=== PATIENT | male | born 1940 | race Caucasian/White ===

== ENCOUNTER 2016-09-21 02:53 | Inpatient (IN) ==
--- NOTE | 2016-09-21 03:11 | Emergency Department Note ---
Disposition Clinical Impression: Acute blood loss as cause of postoperative anemia, Post-tonsillectomy hemorrhage Disposition: Admitted As Inpatient Condition: Fair [facility] Care [facility] - Forms: Work/School Release, ED Satisfaction Letter General Adult HPI - General Chief complaint: ED General Medical Stated complaint: Bleeding S/P Tonsilectomy Time Seen by Provider: 09/21/16 02:57 Source: patient, EMS Mode of arrival: EMS Limitations: no limitations Nursing Notes Reviewed: Yes Vital Signs Reviewed: Yes - History of Present Illness HPI Narrative: 76-year-old male who presents from home by EMS. On August 29 he had a right- sided tonsillectomy and right-sided neck mass biopsy. He said since that time he has had some intermittent bleeding but since last night he has had continuous bleeding that has not stopped. According to EMS there were also supposed THAT were full of blood in the house. He has a past medical history of diabetes, coronary arterial disease, hypertension, hyperlipidemia, COPD. He is taking aspirin, Plavix, statin, metoprolol, metformin, glipizide. He denies any shortness of breath. Denies any chest pain. Radiation: non-radiation Pain Severity: moderate Pain Scale: 4 Improves with: nothing Worsens with: nothing Associated symptoms: Reports: denies other symptoms Treatments Prior to Arrival: none - Related Data Home Medications Medication Instructions Recorded Confirmed Metformin [Glucophage] 850 mg PO BID 06/05/15 09/17/16 Albuterol Sulfate [Proair 90 mcg IH Q4H PRN 06/06/15 09/17/16 Respiclick] Aspirin 81 mg PO DAILY 06/06/15 09/17/16 Finasteride [Proscar] 5 mg PO DAILY 06/06/15 09/17/16 Lisinopril [Zestril] 40 mg PO DAILY 06/06/15 09/17/16 Terazosin [Hytrin] 5 mg PO HS 06/06/15 09/17/16 Acetaminophen [Tylenol] 650 mg PO Q6HR PRN 02/21/16 09/17/16 Atorvastatin Calcium [Lipitor] 20 mg PO HS 02/21/16 09/17/16 Clopidogrel Bisulfate [Plavix] 75 mg PO DAILY 02/21/16 09/17/16 Pantoprazole Sodium [Protonix] 40 mg PO DAILY 02/21/16 09/17/16 Cholecalciferol (D-3) [Vitamin D] 1,000 unit PO DAILY 05/30/16 09/17/16 Docusate [Colace] 100 mg PO BID PRN 05/30/16 09/17/16 Fluticasone Propionate Nasal 2 spr NS DAILY PRN 05/30/16 09/17/16 [Flonase] Latanoprost [Xalatan] 1 drop RIGHT EYE HS 05/30/16 09/17/16 Metoprolol [Lopressor] 25 mg PO BID 08/29/16 09/17/16 Previous Rx's Medication Instructions Recorded Hydrocodone/Acetaminophen [[place] 1 each PO Q4-6H PRN #40 tablet 08/29/16 7.5-325 Tablet] Dexamethasone [Decadron] 4 mg PO BID #36 tab 09/12/16 Magic Mouthwash [Magic Mouthwash 10 ml PO QID PRN #240 ml 09/12/16 BLM] Ondansetron [Zofran] 4 mg PO Q8HR PRN #90 tablet 09/12/16 Prochlorperazine Maleate 10 mg PO Q8HR PRN #90 tablet 09/12/16 [Compazine] HYDROcodone/Acet 10/325 mg [[place] 1 - 2 tab PO Q4HR PRN #120 tab 09/14/16 10-325 mg] Polyethylene Glycol 3350 [MiraLAX] 17 gm PO DAILY #30 powd.pack 09/14/16 Allergies Allergy/AdvReac Type Severity Reaction Status Date / Time No Known Allergies Allergy Verified 09/21/16 03:01 All systems ED: reviewed and negative except as stated. Constitutional: Denies: fever Eyes: Denies: vision change ENT ED: Reports: throat pain (Mild) Cardiovascular: Denies: chest pain Respiratory: Denies: cough, dyspnea Gastrointestinal: Reports: nausea. Denies: abdominal pain, vomiting Genitourinary: Denies: dysuria Musculoskeletal: Denies: back pain Integumentary: Denies: rash Neurological: Denies: headache Past Medical History - Past Medical History Medical history: Reports: arthritis, asthma, COPD, diabetes, hyperlipidemia, hypertension, myocardial infarction, valvular heart disease Surgical history: Reports: angioplasty/stent, cataract, other Psychiatric history: Reports: no psych history - Social History Smoking Status: Former smoker Smokeless Tobacco Status: No Alcohol use: Reports: none Drug use: Reports: none Physical Exam - General Limitations: no limitations General appearance: alert - Head Head exam: atraumatic - Eye Eye exam: Present: normal appearance, PERRL, EOMI - ENT ENT exam: other (Right tonsil is surgically missing. Between the tonsillar pillars or does not appear to be a source of bleeding. Bleeding does appear behind the posterior pillar but is unclear whether this is coming from the mass that is superior to this or from behind the pillar itself.) - Chest Chest inspection: Present: normal inspection - Respiratory Respiratory exam: Present: normal lung sounds bilaterally. Absent: respiratory distress - Cardiovascular Cardiovascular exam: Present: regular rate, normal rhythm - Abdominal Exam Abdominal exam: Present: soft, Non-Tender - Extremities Exam Extremities exam: Present: normal inspection - Back Exam Back exam: Present: normal inspection - Neurological Exam Neurological exam: Present: alert, oriented X3 - Psychiatric Psychiatric exam: Present: normal affect, normal mood - Skin Skin exam: Present: warm, dry Course Course Narrative: It does not appear to the bleeding is coming from the actual tonsillectomy site and the source cannot be directly visualized. We will do a type and screen and check his hemoglobin level. He is currently gargling ice water. We will check his coags and consult ear nose and throat. - Reevaluation(s) Reevaluation #1: HGB is 7, he is feeling generally weak and is continuing to bleed. Will transfuse. ENT is paged. Reevaluation #2: Spoke with Dr Cheatham from ENT, who agrees with transfusion. He will come evaluate the patient with likely OR trip. Will transfuse 4 pack of platelets as he is on aspirin and plavix and has a life threatening bleed. Blood pressure improved after saline bolus and beginning blood product. Vital Signs Temperature 97.8 F 09/21/16 02:55 Pulse Rate 80 09/21/16 02:55 Respiratory Rate 18 09/21/16 02:55 Blood Pressure 114/79 09/21/16 02:55 O2 Sat by Pulse Oximetry 92 L 09/21/16 02:55 Temperature 97.3 F L 09/21/16 05:33 Pulse Rate 76 09/21/16 06:04 Respiratory Rate 16 09/21/16 06:04 Blood Pressure 134/68 09/21/16 06:04 O2 Sat by Pulse Oximetry 99 09/21/16 06:04 Oxygen Delivery Oxygen Delivery Nasal Cannula Medical Decision Making - Medical Records Medical records reviewed: Yes I reviewed the patient's medical records. - Lab Data Lab results reviewed: Yes I reviewed the patient's lab results. Result diagrams: 09/21/16 03:17 09/21/16 03:17 Lab Results 09/21/16 09/21/16 09/21/16 Range/Units 03:17 03:17 03:17 WBC 11.1 (4.3-11.1) K/mcL RBC 2.57 L (4.19-5.50) M/mcL Hgb 7.0 L (12.9-16.9) g/dL Hct 23.0 L (37.5-50.1) % MCV 89.5 (83.0-100.0) fL MCH 27.2 L (28.0-33.3) pg MCHC 30.4 L (31.6-35.5) g/dL RDW 14.6 H (11.5-14.5) % Plt Count 246 (140-400) K/mcL MPV 9.9 (9.4-12.4) fL Immature Gran % 0.8 (0-4) % Seg Neutrophils % 75.7 % Lymphocytes % 13.3 % Monocytes % 6.6 % Eosinophils % 3.2 % Basophils % 0.4 % Neutrophils # 8.4 (1.6-8.9) K/mcL Lymphocytes # 1.5 (0.6-4.6) K/mcL Monocytes # 0.7 (0.0-1.3) K/mcL Eosinophils # 0.4 (0.0-0.6) K/mcL Basophils # 0.0 (0.0-0.2) K/mcL PT 14.2 H (9.4-12.1) Seconds INR 1.3 APTT 32.7 (26.0-36.0) Seconds Sodium 141 (136-145) mEq/L Potassium 4.6 H (3.5-4.5) mEq/L Chloride 112 H (98-109) mEq/L Carbon Dioxide 20 (19-29) mEq/L BUN 35 H (8-26) mg/dL Creatinine 1.19 (0.72-1.25) mg/dL Est GFR ( Amer) > 60 (> 60) Est GFR (Non-Af Amer) 60 (> 60) BUN/Creatinine Ratio 29 H (6-26) Glucose 202 H (70-99) mg/dL Calculated Osmolality 306 H (280-300) Calcium 8.1 L (8.6-10.8) mg/dL Blood Type Antibody Screen Crossmatch 09/21/16 Range/Units 03:17 WBC (4.3-11.1) K/mcL RBC (4.19-5.50) M/mcL Hgb (12.9-16.9) g/dL Hct (37.5-50.1) % MCV (83.0-100.0) fL MCH (28.0-33.3) pg MCHC (31.6-35.5) g/dL RDW (11.5-14.5) % Plt Count (140-400) K/mcL MPV (9.4-12.4) fL Immature Gran % (0-4) % Seg Neutrophils % % Lymphocytes % % Monocytes % % Eosinophils % % Basophils % % Neutrophils # (1.6-8.9) K/mcL Lymphocytes # (0.6-4.6) K/mcL Monocytes # (0.0-1.3) K/mcL Eosinophils # (0.0-0.6) K/mcL Basophils # (0.0-0.2) K/mcL PT (9.4-12.1) Seconds INR APTT (26.0-36.0) Seconds Sodium (136-145) mEq/L Potassium (3.5-4.5) mEq/L Chloride (98-109) mEq/L Carbon Dioxide (19-29) mEq/L BUN (8-26) mg/dL Creatinine (0.72-1.25) mg/dL Est GFR ( Amer) (> 60) Est GFR (Non-Af Amer) (> 60) BUN/Creatinine Ratio (6-26) Glucose (70-99) mg/dL Calculated Osmolality (280-300) Calcium (8.6-10.8) mg/dL Blood Type A NEGATIVE Antibody Screen NEGATIVE Crossmatch See Detail - Radiology Data Radiology results reviewed: Yes I reviewed the patient's radiology results. Critical Care Time Critical Care Time: Yes Total Critical Care Time: 35 Attestation: Critical care performed: Time is exclusive of separately billable procedures. Time includes: direct patient care, patient reassessment, coordination of patient care, interpretation of data (laboratory data, radiology data, and respiratory data), review of patient's medical records, medical consultation and documentation of patient care. Procedures included in critical care time: Procedures excluded from critical care time: Attestation Statement - Attestation Attestation: I, Michael Lopes MD, personally performed a history and physical exam of the patient and discussed their management with the resident. I reviewed the resident's note and agree with the documented findings, medical decision making , and plan of care. 76-year-old male presents to the emergency department with a complaint of postoperative bleeding from his throat. Patient had a right tonsillectomy and a biopsy of his throat about 3 weeks ago. Over the last couple of weeks he has had intermittent bleeding but tonight he started bleeding continuously and cannot get the bleeding to stop. EMS reports that there was blood all over his house and the large amount of blood into trash cans and he had a cupful of blood. Admits to swallowing quite a bit of blood. He complains of feeling weak and dizzy and lightheaded. On examination patient is a well-developed well-nourished elderly male in mild distress. He is pale. There is no diaphoresis. He is alert and oriented 3. There is active bright red bleeding from the back of the throat. Unable to identify exact bleeding site. Breath sounds are clear and equal bilaterally. Heart regular rate and rhythm. Abdomen soft and nontender with normal bowel sounds. Labs reviewed. Hemoglobin 7.0. Platelets and packed red blood cells ordered for patient. Dr. Cheatham, ENT, was consulted and evaluated the patient in the emergency department and took the patient to the OR.
[2016-09-21 03:26] LABS: Basophils % 0.4 %; Eosinophils # 0.4 K/mcL (0.0-0.6); Eosinophils % 3.2 %; Immature Granulocytes % 0.8 % (0-4); Lymphocytes # 1.5 K/mcL (0.6-4.6); Lymphocytes % 13.3 %; Mean Corpuscular HGB Conc 30.4 g/dL (31.6-35.5); Mean Corpuscular Hemoglobin 27.2 pg (28.0-33.3); Mean Corpuscular Volume 89.5 fL (83.0-100.0); Mean Platelet Volume 9.9 fL (9.4-12.4); Monocytes # 0.7 K/mcL (0.0-1.3); Monocytes % 6.6 %; Neutrophils # 8.4 K/mcL (1.6-8.9); Platelet Count 246 K/mcL (140-400); Red Blood Count 2.57 M/mcL (4.19-5.50); Red Cell Distribution Width 14.6 % (11.5-14.5); Segmented Neutrophils % 75.7 %
[2016-09-21 03:41] LABS: BUN/Creatinine Ratio 29 (6-26); Blood Urea Nitrogen 35 mg/dL (8-26); Calcium 8.1 mg/dL (8.6-10.8); Carbon Dioxide 20 mEq/L (19-29); Chloride 112 mEq/L (98-109); Glucose 202 mg/dL (70-99); Osmolality,Calculated 306 (280-300); Potassium 4.6 mEq/L (3.5-4.5); Sodium 141 mEq/L (136-145); eGFR For African Americans > 60 (> 60); eGFR For Non-African Americans 60 (> 60)
[2016-09-21 04:04] LABS: INR 1.3; Prothrombin Time 14.2 Seconds (9.4-12.1)
[2016-09-21 04:07] LABS: Activated Partial Thrombo Time 32.7 Seconds (26.0-36.0)
[2016-09-21] MEDS ORDERED: *HR* FentaNYL (PF) 100 MCG/2 ML VIAL IVP ONE (04:13)
[2016-09-21] MEDS ORDERED: 0.9 % Sodium Chloride 1,000 ML ONE ×2 (04:31→04:43)
[2016-09-21] MEDS ORDERED: 0.9 % Sodium Chloride 1,000 ML IVC ONE (04:38)
--- NOTE | 2016-09-21 05:03 | Anesthesia Evaluation PreOp ---
Date of Encounter: 09/21/16 Time of Encounter: 05:01 - Past History Planned Operation: Control Tonsillar Bleed Cardiac History: [place], HTN, Hyperlipidemia, Arrhythmia, Cardiac Stent Pulmonary History: Asthma, COPD SPORTS ANALYST History: Denies Any Significant HX Other Medical History: Diabetes Type II, Other (rheumatoid arthritis) Anesthesia History: No Prior Anesthetic Complications, Past Anesthesia Alcohol Use: none Drug use: none Medications and Allergies Metformin [Glucophage] 850 mg PO BID 06/05/15 [History] Albuterol Sulfate [Proair Respiclick] 90 mcg IH Q4H PRN 06/06/15 [History] Aspirin 81 mg PO DAILY 06/06/15 [History] Finasteride [Proscar] 5 mg PO DAILY 06/06/15 [History] Lisinopril [Zestril] 40 mg PO DAILY 06/06/15 [History] Terazosin [Hytrin] 5 mg PO HS 06/06/15 [History] Acetaminophen [Tylenol] 650 mg PO Q6HR PRN 02/21/16 [History] Atorvastatin Calcium [Lipitor] 20 mg PO HS 02/21/16 [History] Clopidogrel Bisulfate [Plavix] 75 mg PO DAILY 02/21/16 [History] Pantoprazole Sodium [Protonix] 40 mg PO DAILY 02/21/16 [History] Cholecalciferol (D-3) [Vitamin D] 1,000 unit PO DAILY 05/30/16 [History] Docusate [Colace] 100 mg PO BID PRN 05/30/16 [History] Fluticasone Propionate Nasal [Flonase] 2 spr NS DAILY PRN 05/30/16 [History] Latanoprost [Xalatan] 1 drop RIGHT EYE HS 05/30/16 [History] Hydrocodone/Acetaminophen [[place] 7.5-325 Tablet] 1 each PO Q4-6H PRN #40 tablet 08/29/16 [Rx] Metoprolol [Lopressor] 25 mg PO BID 08/29/16 [History] Dexamethasone [Decadron] 4 mg PO BID #36 tab 09/12/16 [Rx] Magic Mouthwash [Magic Mouthwash BLM] 10 ml PO QID PRN #240 ml 09/12/16 [Rx] Ondansetron [Zofran] 4 mg PO Q8HR PRN #90 tablet 09/12/16 [Rx] Prochlorperazine Maleate [Compazine] 10 mg PO Q8HR PRN #90 tablet 09/12/16 [Rx] HYDROcodone/Acet 10/325 mg [[place] 10-325 mg] 1 - 2 tab PO Q4HR PRN #120 tab [Rx] Polyethylene Glycol 3350 [MiraLAX] 17 gm PO DAILY #30 powd.pack 09/14/16 [Rx] Allergies No Known Allergies Allergy (Verified 09/21/16 03:01) - Meds/Allergy Pre-op Review Medications Reviewed: Yes Allergies Reviewed: Yes Beta Blockers on Current Med List: Yes If Beta Blockers taken, Date/Time (Last Dose taken): 09/20/2016 at 0600 Anesthesia Results - Labs 09/21/16 03:17 09/21/16 03:17 - Imaging EKG: report reviewed Additional studies: 02/21/2016 Cath stable moderate CAD stent placed from prior procedure in proximal LAD is patent with 30-40% ostial LAD and proximal edge in stent re-stenosis 01/25/2016 Echo LVEF 60-65% mild concentric LVH mild LV diastolic dysfunction moderately calcified AV leaflets with reduced mobility mild-moderate AR moderate-severe aortic stenosis. Mean gradient 38 mm Hg and peak 4.20 m/s no evidence of pulmonary HTN Anesthesia Exam Vital Signs/O2 Sat, Most Current Temp Pulse Resp BP Pulse Ox 97.7 F 79 16 104/54 100 09/21/16 04:48 09/21/16 04:48 09/21/16 04:48 09/21/16 04:48 09/21/16 04:48 Height: 5'9''/1.75 m Weight: 225 lbs/102.058 kg - HEENT Pupil (Motor): EOMI Mallampati: III Teeth: Normal, Prosthesis Denture Type: Upper: Complete Oral Opening: Greater than 3 - SPORTS ANALYST LOC: Oriented SPORTS ANALYST Motor: Normal RUE, Normal LUE, Normal RLE, Normal LLE, Normal Face SPORTS ANALYST Sensory: Normal: RUE, LUE, RLE, LLE, Face - Cardiac Rhythm: Regular Murmur: Systolic - Pulmonary Breath Sounds: bilateral Rhonchi Respiratory Effort: Symmetrical Anesthesia Assess/Plan ASA Score: 3 Modified Morning View Scale for Level of Consciousness: Cooperative, oriented, and tranquil Anesthetic Plan: General Monitoring Plan: Standard Monitors, A-Line Recovery Plan: PACU (Patient and understand that he is at increased risk for perioperative complications including myocardial infarct, arrhythmias, CVA, post op vent support/ICU stay, and . Patient and wishes to proceed.)
[2016-09-21] MEDS ORDERED: *HR* FentaNYL (PF) 100 MCG/2 ML VIAL ONE (05:21)
[2016-09-21] MEDS ORDERED: *HR* Phenylephrine 10 MG/ML VIAL ONE (05:21)
[2016-09-21] MEDS ORDERED: *HR* Rocuronium Bromide 50 MG/5 ML VIAL ONE (05:21)
[2016-09-21] MEDS ORDERED: Lidocaine -MPF 2% 2 ML VIAL ONE ×2 (05:21→05:48)
[2016-09-21] MEDS ORDERED: *HR* Etomidate 40 MG/20 ML VIAL IVP ONE (05:21)
[2016-09-21] MEDS ORDERED: *HR* Succinylcholine 200 MG/10 ML VIAL IVP ONE (05:21)
--- NOTE | 2016-09-21 05:25 | ENT - History & Physical ---
Date of Encounter: 09/21/16 Time of Encounter: 05:00 Assessment and Plan (1) Hemorrhage, tonsil, postoperative Current Visit: Yes Status: Acute S/P R tonsillectomy and biopsies 3 weeks ago. He has an active R tonsil bleed w / loose clot, has been bleeding for 2 weeks and was on ASA and Plavix after surgery. This was not ideal. His Hb is at 7 and he is being transfused 2 units of PRBCs and has platelets on the way. 1. OR for control of bleed 2. Will need platelets 3. Will try to admit to Medicine for his multiple medical problems, will follow in house The assessment and plan as outlined above was discussed with the patient and/or family members who expressed understanding and agreement. All questions were answered. History of Present Illness Chief complaint: R tonsil bleed HPI: Mr. 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 He has been oozing blood for the last few weeks but started bleeding more frankly over the last 2 days. Allegedly had solo cups filled when EMS arrived and spit up another 500cc in the ER. He started taking his Plavix and ASA 2 days after his surgery. He was on those for cardiac stents. He stopped the medication 2 days ago for a planned PEG for planned chemo/XRT for nasopharyngeal cancer. Past Med Surg Social Fam HX - Past Medical History Medical history: arthritis, asthma, COPD, diabetes, hyperlipidemia, hypertension , myocardial infarction, valvular heart disease Psychiatric history: no psych history - Past Surgical History Surgical History: angioplasty/stent, cataract, other (R tonsillectomy, R neck mass bx, multiple airway biopsies on 08/29/16) - Social History Smoking Status: Former smoker Smokeless Tobacco Status: No Alcohol use: none Drug use: none - Family History Mother Living Status: Medications and Allergies Metformin [Glucophage] 850 mg PO BID 06/05/15 [History] Albuterol Sulfate [Proair Respiclick] 90 mcg IH Q4H PRN 06/06/15 [History] Aspirin 81 mg PO DAILY 06/06/15 [History] Finasteride [Proscar] 5 mg PO DAILY 06/06/15 [History] Lisinopril [Zestril] 40 mg PO DAILY 06/06/15 [History] Terazosin [Hytrin] 5 mg PO HS 06/06/15 [History] Acetaminophen [Tylenol] 650 mg PO Q6HR PRN 02/21/16 [History] Atorvastatin Calcium [Lipitor] 20 mg PO HS 02/21/16 [History] Clopidogrel Bisulfate [Plavix] 75 mg PO DAILY 02/21/16 [History] Pantoprazole Sodium [Protonix] 40 mg PO DAILY 02/21/16 [History] Cholecalciferol (D-3) [Vitamin D] 1,000 unit PO DAILY 05/30/16 [History] Docusate [Colace] 100 mg PO BID PRN 05/30/16 [History] Fluticasone Propionate Nasal [Flonase] 2 spr NS DAILY PRN 05/30/16 [History] Latanoprost [Xalatan] 1 drop RIGHT EYE HS 05/30/16 [History] Hydrocodone/Acetaminophen [[place] 7.5-325 Tablet] 1 each PO Q4-6H PRN #40 tablet 08/29/16 [Rx] Metoprolol [Lopressor] 25 mg PO BID 08/29/16 [History] Dexamethasone [Decadron] 4 mg PO BID #36 tab 09/12/16 [Rx] Magic Mouthwash [Magic Mouthwash BLM] 10 ml PO QID PRN #240 ml 09/12/16 [Rx] Ondansetron [Zofran] 4 mg PO Q8HR PRN #90 tablet 09/12/16 [Rx] Prochlorperazine Maleate [Compazine] 10 mg PO Q8HR PRN #90 tablet 09/12/16 [Rx] HYDROcodone/Acet 10/325 mg [[place] 10-325 mg] 1 - 2 tab PO Q4HR PRN #120 tab [Rx] Polyethylene Glycol 3350 [MiraLAX] 17 gm PO DAILY #30 powd.pack 09/14/16 [Rx] Allergies No Known Allergies Allergy (Verified 09/21/16 03:01) ENT - ROS All systems PM: reviewed and no additional remarkable complaints except as stated ENT Exam Initial Vital Signs Temp Pulse Resp BP Pulse Ox 97.8 F 80 18 114/79 92 L 09/21/16 02:55 09/21/16 02:55 09/21/16 02:55 09/21/16 02:55 09/21/16 02:55 - General physical appearance well developed, well nourished - ENT normal pinna, dry mucosa, CN 2-12 grossly intact, Other (R tonsil clot, thin and loosely attachd to the fossa) - Neck Neck Exam: lymphadenopathy: right Results - Labs 09/21/16 03:17 09/21/16 03:17 Abnormal lab results RBC 2.57 M/mcL (4.19-5.50) L 09/21/16 03:17 Hgb 7.0 g/dL (12.9-16.9) L 09/21/16 03:17 Hct 23.0 % (37.5-50.1) L 09/21/16 03:17 MCH 27.2 pg (28.0-33.3) L 09/21/16 03:17 MCHC 30.4 g/dL (31.6-35.5) L 09/21/16 03:17 RDW 14.6 % (11.5-14.5) H 09/21/16 03:17 PT 14.2 Seconds (9.4-12.1) H 09/21/16 03:17 Potassium 4.6 mEq/L (3.5-4.5) H 09/21/16 03:17 Chloride 112 mEq/L (98-109) H 09/21/16 03:17 BUN 35 mg/dL (8-26) H 09/21/16 03:17 BUN/Creatinine Ratio 29 (6-26) H 09/21/16 03:17 Glucose 202 mg/dL (70-99) H 09/21/16 03:17 Calculated Osmolality 306 (280-300) H 09/21/16 03:17 Calcium 8.1 mg/dL (8.6-10.8) L 09/21/16 03:17 Diabetes panel 09/21/16 Range/Units 03:17 Sodium 141 (136-145) mEq/L Potassium 4.6 H (3.5-4.5) mEq/L Chloride 112 H (98-109) mEq/L Carbon Dioxide 20 (19-29) mEq/L BUN 35 H (8-26) mg/dL Creatinine 1.19 (0.72-1.25) mg/dL Glucose 202 H (70-99) mg/dL Calcium 8.1 L (8.6-10.8) mg/dL Calcium panel 09/21/16 Range/Units 03:17 Calcium 8.1 L (8.6-10.8) mg/dL Pituitary panel 09/21/16 Range/Units 03:17 Sodium 141 (136-145) mEq/L Potassium 4.6 H (3.5-4.5) mEq/L Chloride 112 H (98-109) mEq/L Carbon Dioxide 20 (19-29) mEq/L BUN 35 H (8-26) mg/dL Creatinine 1.19 (0.72-1.25) mg/dL Glucose 202 H (70-99) mg/dL Calcium 8.1 L (8.6-10.8) mg/dL Adrenal panel 09/21/16 Range/Units 03:17 Sodium 141 (136-145) mEq/L Potassium 4.6 H (3.5-4.5) mEq/L Chloride 112 H (98-109) mEq/L Carbon Dioxide 20 (19-29) mEq/L BUN 35 H (8-26) mg/dL Creatinine 1.19 (0.72-1.25) mg/dL Glucose 202 H (70-99) mg/dL Calcium 8.1 L (8.6-10.8) mg/dL All other labs normal.
[2016-09-21] MEDS ORDERED: Heparin 1,000 UNITS/500 mL NS 500 ML ONE (05:30)
[2016-09-21] MEDS ORDERED: Ringers Solution, Lactated 1,000 ML ONE (05:46)
--- NOTE | 2016-09-21 07:36 | ENT - Procedure Note ---
Date of procedure: 09/21/16 Pre-op diagnosis: Post-tonsillectomy bleed Post-op diagnosis: same Procedure: Date: 09/21/16 Procedure: Direct laryngoscopy, Control of right post-tonsillectomy hemorrhage Pre-op Dx: Post-tonsillectomy hemorrhage, right Post-op Dx: Same Findings: Biopsy sites without bleeding, oozing from the right tonsillar fossa , palpable nodularity in the left nasopharynx Anesthesia: GETA Complications: None EBL: 1ml Surgeon: Sancho Cheatham MD History/Indications: Mr. Padilla is a 76 year-old male who underwent R neck biopsy, R tonsillectomy, laryngoscopy and biopsies for R neck cancer. This was done on 08/29/16. He restarted his ASA and Plavix 2 days after surgery. He has been intermittently oozing from the throat since then but it has been more robust over the last day. Reportedly had cups of blood in his residence and had 500ml of blood in the ED. 2 units of PRBCs and 4 units of platelets were given. He was seen in the ED and seen to have oozing from the R tonsillar fossa. He was consented to take-back to the OR for laryngoscopy and control of post-tonsillectomy hemorrhage. Procedure: Sam Padilla was taken to the OR on 09/21/16 and placed in a supine position on the operating table. He was sedated and intubated. Arms were padded and wrapped. A time-out was performed confirming appropriate patient and surgery. He was rotated 90 degrees in a [id number] fashion. Face was protected with sterile towels. I started with the laryngoscopy. I used a laryngoscope to examine the R tonsillar fossa, base of tongue, larynx and hypopharynx. There was no active bleeding from any sites other than the R tonsillar fossa, which was actively oozing. I removed the laryngoscope. I then placed a Shadia-Issa into his mouth to secure the endotracheal tube to the midline, lower lip. I placed him in suspension and examined the oropharynx. I cauterized the R tonsillar fossa with suction bovie electrocautery. I then placed 3 interrupted 4-0 vicryl sutures to perform a closure of the fossa. This controlled all bleeding. I placed a Metz catheter into the right nares and gomez it from the oropharynx, securing the soft palate anteriorly. I inspected the nasopharynx with a dental mirror. I did not see any evidence of bleeding. I palpated the nasopharynx. I didn't palpate anything on the right side, but I did palpate a nodularity in the left nasopharynx. I removed the catheter. I took him out of suspension and re- suspended to inspect for any repeat bleeding. None was noted. I removed the Shadia-Issa. Anesthesia took control of the endotracheal tube and the patient was rotated back to the original position. He was then extubated and transferred to his bed and PACU in a stable manner. He tolerated the procedure well. I performed the entire procedure myself. Implants: none Surgeon: Sancho Cheatham Estimated blood loss (cc): 1 Condition: stable
[2016-09-21] MEDS ORDERED: Ondansetron 4 MG/2 ML VIAL ONE (07:45)
[2016-09-21] MEDS ORDERED: Dexamethasone 4 MG/ML VIAL ONE (07:45)
[2016-09-21] MEDS ORDERED: Ondansetron ODT 4 MG TAB.RAPDIS PO PRN (08:12)
[2016-09-21] MEDS ORDERED: Fluticasone Propionate Nasal 50 MCG/SPRAY BOTTLE NS PRN ×2 (08:12→18:47)
[2016-09-21] MEDS ORDERED: 0.9 % Sodium Chloride 1,000 ML IVC SCH (08:15)
[2016-09-21] MEDS ORDERED: Lisinopril 20 MG TABLET PO SCH (09:00)
[2016-09-21] MEDS ORDERED: Cholecalciferol (D-3) 1,000 UNIT TABLET PO SCH (09:00)
[2016-09-21] MEDS ORDERED: Finasteride 5 MG TABLET PO SCH (09:00)
[2016-09-21] MEDS ORDERED: Ipratropium/Albuterol Neb 3 ML IH PRN ×2 (09:02→18:47)
[2016-09-21] MEDS ORDERED: Acetaminophen 325 MG TABLET PO PRN ×2 (09:04→18:47)
[2016-09-21] MEDS ORDERED: Naloxone 0.4 MG/ML INJ IVP PRN ×2 (09:04→18:47)
[2016-09-21] MEDS ORDERED: Dextrose Gel 15 GM PO PRN ×4 (09:08→18:47)
[2016-09-21] MEDS ORDERED: *HR* Dextrose 50 % in Water (Syg) 50 ML SYRINGE IVP PRN ×2 (09:08→18:47)
[2016-09-21] MEDS ORDERED: D5% in Water 1,000 ML IV PRN ×2 (09:08→18:47)
[2016-09-21] MEDS: *HR* HYDROcodone/Acet 7.5/325 mg TABLET PO PRN ×3 (09:14→20:02)
--- NOTE | 2016-09-21 09:14 | Internal Medicine Consult Note ---
Date of Encounter: 09/21/16 Time of Encounter: 09:11 Internal Medicine - CN: HPI - Data of Consult Patient: new to practice Consult date: 09/21/16 Requesting Physician: Sancho Cheatham MD - Consult Narrative Reason for consult: Medical management History of present illness: Mr. Padilla is a 76 year old male with a past medical history of diabetes type 2 not insulin-dependent, CAD status post stents currently on aspirin and Plavix. The patient was diagnosed with nasopharyngeal cancer and had a biopsy 3 weeks ago, he continued to take aspirin and Plavix and apparently he has been bleeding for almost 2 weeks from his right tonsillar area. Today he arrived to the emergency room where his hemoglobin was found to be 7, was transfused 2 units of red blood cells and platelets. He was seen by Dr. Cheatham who performed a Direct laryngoscopy to Control a right post-tonsillectomy hemorrhage. The area was cauterized and sutured. Bleeding has stopped. The patient is a still feeling slightly short of breath, sounds very congested. Troponins and a chest x-ray were ordered. Denies any other complaint at the moment Review of systems: No chest pain, no abdominal pain, no dysuria. 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) Psychiatric history: no psych history - Past Surgical History Surgical History: angioplasty/stent, cataract, other (R tonsillectomy, R neck mass bx, multiple airway biopsies on 08/29/16) - Social History Smoking Status: Former smoker Smokeless Tobacco Status: No Alcohol use: none Drug use: none - Family History Mother Living Status: - Additional Family History Additional family history: Mother with brain cancer and father with heart disease Internal Medicine - CN: Meds Metformin [Glucophage] 850 mg PO BID 06/05/15 [History] Albuterol Sulfate [Proair Respiclick] 2 puff IH Q4H PRN 06/06/15 [History] Aspirin 81 mg PO DAILY 10/05/15 [History] Finasteride [Proscar] 5 mg PO DAILY 06/06/15 [History] Lisinopril [Zestril] 40 mg PO DAILY 06/06/15 [History] Terazosin [Hytrin] 5 mg PO HS 06/06/15 [History] Acetaminophen [Tylenol] 650 mg PO Q6HR PRN 02/21/16 [History] Atorvastatin Calcium [Lipitor] 20 mg PO HS 02/21/16 [History] Clopidogrel Bisulfate [Plavix] 75 mg PO DAILY 02/21/16 [History] Pantoprazole Sodium [Protonix] 40 mg PO DAILY 02/21/16 [History] Cholecalciferol (D-3) [Vitamin D] 1,000 unit PO DAILY 05/30/16 [History] Docusate [Colace] 100 mg PO BID PRN 05/30/16 [History] Fluticasone Propionate Nasal [Flonase] 2 spr NS DAILY PRN 05/30/16 [History] Latanoprost [Xalatan] 1 drop RIGHT EYE HS 05/30/16 [History] Metoprolol [Lopressor] 25 mg PO BID 08/29/16 [History] Dexamethasone [Decadron] 4 mg PO BID #36 tab 09/12/16 [Rx] Magic Mouthwash [Magic Mouthwash BLM] 10 ml PO QID PRN #240 ml 09/12/16 [Rx] Ondansetron [Zofran] 4 mg PO Q8HR PRN #90 tablet 09/12/16 [Rx] Prochlorperazine Maleate [Compazine] 10 mg PO Q8HR PRN #90 tablet 09/12/16 [Rx] HYDROcodone/Acet 10/325 mg [Force 10-325 mg] 1 - 2 tab PO Q4HR PRN #120 tab [Rx] Polyethylene Glycol 3350 [MiraLAX] 17 gm PO DAILY #30 powd.pack 09/14/16 [Rx] Allergies No Known Allergies Allergy (Verified 09/21/16 03:01) Internal Medicine - CN: Exam - Constitutional Vitals: Temp Pulse Resp BP Pulse Ox 98.5 F 83 18 127/75 94 L 09/21/16 07:48 09/21/16 07:48 09/21/16 07:48 09/21/16 07:48 09/21/16 07:48 General appearance IM: Present: A&O X 3, obese - Head Head exam: Present: atraumatic, normal inspection - Expanded Head Exam Head exam expanded IM: Absent: abrasion, Anderson's sign, contusion - Eye Eye exam: Present: EOMI, PERRL. Absent: conjunctival injection Pupils: Present: PERRL. Absent: unequal - ENT Additional comments: R tonsil clot, thin and loosely attachd to the fossa - Respiratory Respiratory exam: Present: decreased breath sounds, rales (Diffuse fine crackles , no wheezing) - GI/Abdominal GI/Abdominal exam IM: Present: distended, soft, tenderness. Absent: guarding, rebound, rigid - Expanded GI/Abdominal Exam GI/Abdominal exam: Absent: ascites - Extremities Exam Extremities exam IM: Present: full ROM, normal inspection. Absent: calf tenderness, cyanotic, joint swelling - Expanded Lower Extremities Exam Hip exam: Absent: abrasion, crepitus, deformity, dislocation - Back Exam Back exam: Absent: CVA tenderness (L), CVA tenderness (R) - Neurological Exam Neurological exam: Present: alert, CN II-XII intact, normal gait, oriented X3. Absent: altered, motor sensory deficit Internal Medicine - CN: Reslt - Labs CBC & Chem 7: 09/21/16 03:17 09/21/16 03:17 - ABG Interpretation ABG results: PT/INR, D-dimer PT 14.2 Seconds (9.4-12.1) H 09/21/16 03:17 - Impressions Impressions Chest X-Ray 09/21/16 08:38 IMPRESSION: Borderline cardiomegaly. The pulmonary vasculature appears slightly congested. D/ / Roger Stein MD / Roger Stein MD Interpreting Provider: Roger Stein MD - Assessment and Plan (1) Acute blood loss as cause of postoperative anemia Current Visit: Yes Status: Acute Assessment and plan: Acute blood loss anemia secondary to prior tonsillectomy/biopsies exacerbated by the use of aspirin and Plavix Patient was transfused with 2 units of red blood cells and platelets Hold aspirin and Plavix Monitor CBC Continue management per ENT (2) Hemorrhage, tonsil, postoperative Current Visit: Yes Status: Acute Assessment and plan: Morphine for pain (3) Diastolic CHF Current Visit: Yes Status: Acute Assessment and plan: likely mild exacerbation of diastolic CHF in the setting of severe aortic stenosis due to administration of red blood cells/volume Stop IV fluids, start Lasix IV Chest x-ray showed vascular congestion The patient complaining of chest discomfort, order an EKG and troponins Qualifiers: Congestive heart failure chronicity: acute on chronic Qualified Code(s): I50.33 - Acute on chronic diastolic (congestive) heart failure (4) Squamous cell carcinoma of nasopharynx Current Visit: No Status: Acute (5) Diabetes mellitus Current Visit: No Status: Chronic Assessment and plan: Continue insulin sliding scale and hold oral hypoglycemic agents Qualifiers: Diabetes mellitus type: type 2 Diabetes mellitus complication status: with kidney complications Diabetes mellitus complication detail: with nephropathy Diabetes mellitus correction insulin use: without correction use Qualified Code(s): E11.21 - Type 2 diabetes mellitus with diabetic nephropathy (6) Severe aortic stenosis Current Visit: Yes Status: Acute Assessment and plan: Follow up as outpatient with always [facility] Thank you for allowing me to participate in the care of this patient. Please call with any questions Consult Discharge Plan - Plan [facility]errals: [facility] [Primary Care Provider] -
[2016-09-21] MEDS ORDERED: Furosemide 40 MG/4 ML VIAL IV ONE ×2 (09:15→11:49)
[2016-09-21] MEDS: Ipratropium/Albuterol Neb 3 ML IH SCH ×3 (11:35→21:34)
[2016-09-21] MEDS: Insulin LISPRO 300 UNITS/3 ML VIAL SQ SCH ×2 (12:08→16:26)
[2016-09-21] MEDS: *HR* Morphine 2 MG/ML SYRINGE IV PRN ×3 (12:09→22:14)
--- NOTE | 2016-09-21 14:54 | Cardiology Consult Note ---
Date of Encounter: 09/21/16 Time of Encounter: 14:30 Assessment and Plan (1) Elevated troponin Current Visit: Yes Status: Acute Troponin 0.05, 0.22 in the setting of acute anemia secondary to right tonsilar hemorrhage; suspect secondary to demand ischemia. Also has known severe . No significant changes on ECG compared to previous. Chest pain free upon exam--patient reports discomfort improved after PRBC infusion. Asa and plavix have been held; recommendation to re-start when H/H stable and okay by ENT. Was told to hold prior to upcoming G-tube insertion next week. LHC 02/21/16: stable, moderate non-obstructive CAD with patent pLAD stent. TTE 01/16/16: EF 60-65%, mild cLVH, mild to moderate , MG=38 mmHg, normal wall motion. Recommend conservative medical therapy; monitor H/H closely and transfuse when appropriate. Recent head/neck CA diagnosis. Continue betablocker and statin. (2) Post-tonsillectomy hemorrhage Current Visit: Yes Status: Acute s/p cauterization of right tonsilar bleed H/H 03/24.0 Has received x3 units of PRBC (3) Severe aortic stenosis Current Visit: Yes Status: Chronic Known severe with preserved LVEF. MG=38mmHg. Referred to [facility] for TAVR--initially scheduled in October; however has been postponed due to recent cancer diagnosis. Has follow-up scheduled in December at [facility]. Discussion w patient/family: The assessment and plan as outlined above was discussed with the patient and/or family members who expressed understanding and agreement. All questions were answered. Thank you for involving us in the care of your patient. Please call with any questions. The patient will be discussed and reviewed with Dr. Villalta; changes to be made accordingly. History of Present Illness Consult date: 09/21/16 Requesting physician: Javed Meza Consult reason: Elevated troponin Chief complaint: Tonsillar bleeding History of present illness: Mr. Padilla is a 76 year old male with PMH significant for CAD s/p PCI, severe with preserved LVEF, HLD, HTN, DMII, and recent dx of head/neck cancer who presented to the ED with increased bleeding s/p right tonsillectomy a on . Patient/family report plavix/asa was held 3 days prior to surgery and resumed 2 days post-operatively as recommended. He reports 2 week history of intermittent hemoptysis; however symptoms significantly worsened overnight which prompted ED evaluation. He also reports chest discomfort and shortness of breath upon arrival to ED. He was taken this morning to the OR for cauterization of right tonsilar bleed. Recent dx of head/neck cancer--has G-tube placement surgery next week and will start chemotherapy q21 days and also radiation x5 days per week. Referred to [facility] for TAVR (originally scheduled in Oct); however, in light of recent cancer dx, surgery has been postponed--he was instructed to follow-up in December. 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) Psychiatric history: no psych history - Past Surgical History Surgical History: angioplasty/stent, cataract, other (R tonsillectomy, R neck mass bx, multiple airway biopsies on 08/29/16) - Social History Smoking Status: Former smoker Smokeless Tobacco Status: No Alcohol use: none Drug use: none - Family History Mother Living Status: Medications and Allergies Metformin [Glucophage] 850 mg PO BID 06/05/15 [History] Albuterol Sulfate [Proair Respiclick] 2 puff IH Q4H PRN 06/06/15 [History] Aspirin 81 mg PO DAILY 06/06/15 [History] Finasteride [Proscar] 5 mg PO DAILY 06/06/15 [History] Lisinopril [Zestril] 40 mg PO DAILY 06/06/15 [History] Terazosin [Hytrin] 5 mg PO HS 06/06/15 [History] Acetaminophen [Tylenol] 650 mg PO Q6HR PRN 02/21/16 [History] Atorvastatin Calcium [Lipitor] 20 mg PO HS 02/21/16 [History] Clopidogrel Bisulfate [Plavix] 75 mg PO DAILY 02/21/16 [History] Pantoprazole Sodium [Protonix] 40 mg PO DAILY 02/21/16 [History] Cholecalciferol (D-3) [Vitamin D] 1,000 unit PO DAILY 05/30/16 [History] Docusate [Colace] 100 mg PO BID PRN 05/30/16 [History] Fluticasone Propionate Nasal [Flonase] 2 spr NS DAILY PRN 05/30/16 [History] Latanoprost [Xalatan] 1 drop RIGHT EYE HS 05/30/16 [History] Metoprolol [Lopressor] 25 mg PO BID 08/29/16 [History] Dexamethasone [Decadron] 4 mg PO BID #36 tab 09/12/16 [Rx] Magic Mouthwash [Magic Mouthwash BLM] 10 ml PO QID PRN #240 ml 09/12/16 [Rx] Ondansetron [Zofran] 4 mg PO Q8HR PRN #90 tablet 09/12/16 [Rx] Prochlorperazine Maleate [Compazine] 10 mg PO Q8HR PRN #90 tablet 09/12/16 [Rx] HYDROcodone/Acet 10/325 mg [Donora 10-325 mg] 1 - 2 tab PO Q4HR PRN #120 tab [Rx] Polyethylene Glycol 3350 [MiraLAX] 17 gm PO DAILY #30 powd.pack 09/14/16 [Rx] Allergies No Known Allergies Allergy (Verified 09/21/16 03:01) All Systems Review: A 10-system review of systems was performed and is negative for pertinent findings except as documented above in the HPI. - Cardiovascular Cardiovascular: as per HPI Physical Examination Vital Signs, Last 4 Hours Temp Pulse Resp BP Pulse Ox 09/21/16 11:20 97.9 F 73 14 130/71 98 09/21/16 10:55 86 16 144/77 98 General: Conversant, Other (hard of hearing) Cardiac: Reg Rate and Rhythm, Normal S1 and S2 Lungs: Other (Bibasilar rales) Neuro: Alert and responsive Abdomen: Soft Skin: Other (right neck incision--healing. ) Extremities: Other (+1 edema to knees) Results 09/21/16 03:17 09/21/16 03:17 Lab Results 09/21/16 09/21/16 09:25 13:05 Troponin I 0.05 H* 0.22 H* Active Medications Acetaminophen (Tylenol) 650 mg PO Q6HR PRN PRN Reason: Mild Pain (1-3) Stop: 03/23/17 09:05 Acetaminophen/Hydrocodone Bitart (Donora 7.5-325 Mg) 1 tab PO Q4H PRN PRN Reason: Pain Stop: 03/23/17 08:13 Last Admin: 09/21/16 14:38 Dose: 1 tab Albuterol Sulfate (Albuterol Inhaler) 1 puff IH Q4H PRN PRN Reason: Wheezing Albuterol/Ipratropium (Duoneb) 3 ml IH [id number] ALISS[place] PRN Reason: Protocol Stop: 03/23/17 10:01 Last Admin: 09/21/16 11:35 Dose: 3 ml Albuterol/Ipratropium (Duoneb) 3 ml IH [id number] PRN; Protocol PRN Reason: Shortness Of Breath/Wheezing Stop: 03/23/17 09:03 Atorvastatin Calcium (Lipitor) 20 mg PO HS [place]ISSON Stop: 03/23/17 21:01 Docusate Sodium (Colace) 100 mg PO BID PRN; Protocol PRN Reason: Constipation Stop: 03/23/17 08:13 Finasteride (Proscar) 5 mg PO DAILY [place] PRN Reason: Protocol Stop: 03/23/17 09:01 Last Admin: 09/21/16 09:12 Dose: 5 mg Fluticasone Propionate (Flonase) 50 mcg NS DAILY PRN; Protocol PRN Reason: Allergy Symptoms Stop: 03/23/17 08:13 Furosemide (Lasix) 20 mg IV BID [place]SON Stop: 03/23/17 21:01 Hydralazine HCl (Hydralazine) 10 mg IVP Q6HR PRN PRN Reason: Hypertension Stop: 03/23/17 09:03 Dextrose (Dextrose 5%) 1,000 mls @ 100 mls/hr IV CONT PRN PRN Reason: HYPOGLYCEMIA Stop: 03/23/17 09:09 Insulin Human Lispro (Humalog) 0 units SQ TIDAC [place]SON PRN Reason: Protocol Stop: 03/23/17 11:31 Last Admin: 09/21/16 12:08 Dose: 2 units Latanoprost (Xalatan) 1 drop RIGHT EYE HS [place] PRN Reason: Protocol Stop: 03/23/17 21:01 Lisinopril (Zestril) 40 mg PO DAILY [facility] PRN Reason: Protocol Stop: 03/23/17 09:01 Last Admin: 09/21/16 09:13 Dose: 40 mg Metoprolol Tartrate (Lopressor) 25 mg PO BID [facility] Stop: 03/23/17 09:01 Last Admin: 09/21/16 09:29 Dose: Not Given Morphine Sulfate (Morphine Sulfate) 4 mg IV Q3H PRN PRN Reason: pain Stop: 03/23/17 09:03 Last Admin: 09/21/16 12:09 Dose: 4 mg Naloxone HCl (Narcan) 0.4 mg IVP Q2MIN PRN PRN Reason: Opioid Reversal Stop: 03/23/17 09:05 Omeprazole (Prilosec) 20 mg PO DAILY [facility] Stop: 03/23/17 09:01 Last Admin: 09/21/16 09:12 Dose: 20 mg Ondansetron HCl (Zofran Odt) 4 mg PO Q8HR PRN PRN Reason: Nausea Polyethylene Glycol (Miralax) 17 gm PO DAILY [facility] Stop: 03/23/17 09:01 Last Admin: 09/21/16 09:12 Dose: 17 gm Prochlorperazine Maleate (Compazine) 10 mg PO Q8HR PRN PRN Reason: Nausea Stop: 03/23/17 08:13 Terazosin HCl (Hytrin) 5 mg PO HS [facility] Stop: 03/23/17 21:01 Vitamin D (Vitamin D) 1,000 unit PO DAILY [facility] Stop: 03/23/17 09:01 Last Admin: 09/21/16 09:12 Dose: 1,000 unit Impressions Chest X-Ray 09/21/16 02:57 IMPRESSION: 1. No acute abnormality. D/ / Bubba Bhandari MD / Bubba Bhandari MD Interpreting Provider: Bubba Bhandari MD Chest X-Ray 09/21/16 08:38 IMPRESSION: Borderline cardiomegaly. The pulmonary vasculature appears slightly congested. D/ / Roger Stein MD / Roger Stein MD Interpreting Provider: Roger Stein MD Chest X-Ray 09/21/16 09:07 IMPRESSION: Prominent interstitial changes suggestive of mild interstitial edema. There is also a suspected very small pleural effusion seen at the posterior sulcus at the right lung base. D/ / Fredo Holland MD / Fredo Holland MD Interpreting Provider: Fredo Holland MD - Imaging and Cardiology Echo: report reviewed Cardiac cath: report reviewed Other Results: Telemetry review: avg HR=78 SR. No significant event noted. - EKG Interpretation EKG results cardiology: personally reviewed Consult Discharge Plan - Plan [facility]errals: [facility] [Primary Care Provider] -
--- NOTE | 2016-09-21 16:11 | Electrocardiograph Report ---
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
[2016-09-21 17:13] LABS: Hematocrit 23.8 % (37.5-50.1); Hemoglobin 7.6 g/dL (12.9-16.9)
[2016-09-21] MEDS ORDERED: Furosemide 20 MG/2 ML VIAL IV ONE (18:45)
--- NOTE | 2016-09-21 18:46 | Event Note ---
Date of Encounter: 09/21/16 Time of Encounter: 18:40 I spoke to the covering hospitalist about his Hb and Troponins. I examined him a few hours ago and he did not have any bleeding. I requested that he be transferred to the hospitalist service. They agreed to accept. They will be managing the Hb issue and monitoring his Troponin. See Cards note for details. I will continue to monitor for any bleeding. Please call/page with any questions. Sancho Cheatham MD
[2016-09-21] MEDS ORDERED: Furosemide 20 MG/2 ML VIAL IVP ONE (18:50)
[2016-09-21] MEDS ORDERED: 0.9 % Sodium Chloride 250 ML ONE (20:03)
[2016-09-21] MEDS ORDERED: Latanoprost 2.5 ML BOTTLE RIGHT EYE SCH (21:00)
[2016-09-21] MEDS ORDERED: Furosemide 40 MG/4 ML VIAL IV SCH (21:00)
[2016-09-21] MEDS: Latanoprost 2.5 ML BOTTLE RIGHT EYE SCH (22:39)
[2016-09-21] MEDS: Ondansetron ODT 4 MG TAB.RAPDIS PO PRN (23:37)
[2016-09-22] MEDS: *HR* HYDROcodone/Acet 7.5/325 mg TABLET PO PRN ×2 (00:32→21:34)
[2016-09-22] MEDS: Furosemide 40 MG/4 ML VIAL IV SCH ×3 (01:48→17:00)
[2016-09-22] MEDS: *HR* Morphine 2 MG/ML SYRINGE IV PRN ×6 (01:55→23:40)
[2016-09-22 03:35] LABS: Hematocrit 26.6 % (37.5-50.1); Hemoglobin 8.5 g/dL (12.9-16.9); Mean Corpuscular Volume 87.5 fL (83.0-100.0); Mean Platelet Volume 9.9 fL (9.4-12.4); Platelet Count 223 K/mcL (140-400); Red Blood Count 3.04 M/mcL (4.19-5.50); Red Cell Distribution Width 14.6 % (11.5-14.5)
[2016-09-22] MEDS: Ipratropium/Albuterol Neb 3 ML IH SCH ×4 (03:42→22:35)
[2016-09-22 03:57] LABS: BUN/Creatinine Ratio 22 (6-26); Calcium 8.6 mg/dL (8.6-10.8); Carbon Dioxide 23 mEq/L (19-29); Chloride 108 mEq/L (98-109); Chol/HDL Ratio 4.1 (0-4.9); Cholesterol 95 mg/dL (< 200); Glucose 148 mg/dL (70-99); HDL Cholesterol 23 mg/dL (40-59); LDL Cholesterol,Calculated 41 mg/dL (0-99); Osmolality,Calculated 300 (280-300); Potassium 4.3 mEq/L (3.5-4.5); Sodium 142 mEq/L (136-145); Triglycerides 157 mg/dL (< 150); eGFR For African Americans > 60 (> 60); eGFR For Non-African Americans > 60 (> 60)
[2016-09-22 03:58] LABS: Blood Urea Nitrogen 23 mg/dL (8-26)
[2016-09-22] MEDS: Lisinopril 20 MG TABLET PO SCH (08:41)
[2016-09-22] MEDS: Cholecalciferol (D-3) 1,000 UNIT TABLET PO SCH (08:41)
[2016-09-22] MEDS: Finasteride 5 MG TABLET PO SCH (08:41)
[2016-09-22] MEDS: Insulin LISPRO 300 UNITS/3 ML VIAL SQ SCH ×4 (08:42→21:35)
--- NOTE | 2016-09-22 09:14 | ENT - Progress Note ---
Date of Encounter: 09/22/16 Time of Encounter: 08:00 - Assessment and Plan (1) Hemorrhage, tonsil, postoperative Current Visit: Yes Status: Resolved POD#1 s/p control of post-tonsillectomy hemorrhage. Still has L tonsil, hemorrhage was chronic and from the R likely due to Plavix/ASA that he started only 2 days after the surgery. Has elevating troponins and IM/Cards have taken over as primary on him. I see no bleeding today. Hb responded well after another unit. I suspect his true Hb on presentation was much lower than 7 if he only went to 7.6 after 2 units. 1. Will continue to follow 2. If ASA or other anti-coagulation is necessary and outweigh the potential ( decreased at this point) bleeding risk I think it would be reasonable to start this. Please call with questions/concerns. Sancho Cheatham MD Subjective Patient reports: no new complaints, other (patient states that he coughed up some blood early in the AM but nothing since then; SOB has resolved, no CP, has been ambulating to the bathroom) Objective Initial Vital Signs Temp Pulse Resp BP Pulse Ox 97.8 F 80 18 114/79 92 L 09/21/16 02:55 09/21/16 02:55 09/21/16 02:55 09/21/16 02:55 09/21/16 02:55 - General physical appearance obese - ENT dry mucosa, Other (No bleeding from the cauterized oropharyngeal site, sutures intact, healing well) - Labs 09/22/16 03:02 09/22/16 03:02 Diabetes panel 09/22/16 Range/Units 03:02 Sodium 142 (136-145) mEq/L Potassium 4.3 (3.5-4.5) mEq/L Chloride 108 (98-109) mEq/L Carbon Dioxide 23 (19-29) mEq/L BUN 23 D (8-26) mg/dL Creatinine 1.06 (0.72-1.25) mg/dL Glucose 148 H (70-99) mg/dL Calcium 8.6 (8.6-10.8) mg/dL Triglycerides 157 H (< 150) mg/dL HDL Cholesterol 23 L (40-59) mg/dL Calcium panel 09/22/16 Range/Units 03:02 Calcium 8.6 (8.6-10.8) mg/dL Pituitary panel 09/22/16 Range/Units 03:02 Sodium 142 (136-145) mEq/L Potassium 4.3 (3.5-4.5) mEq/L Chloride 108 (98-109) mEq/L Carbon Dioxide 23 (19-29) mEq/L BUN 23 D (8-26) mg/dL Creatinine 1.06 (0.72-1.25) mg/dL Glucose 148 H (70-99) mg/dL Calcium 8.6 (8.6-10.8) mg/dL Adrenal panel 09/22/16 Range/Units 03:02 Sodium 142 (136-145) mEq/L Potassium 4.3 (3.5-4.5) mEq/L Chloride 108 (98-109) mEq/L Carbon Dioxide 23 (19-29) mEq/L BUN 23 D (8-26) mg/dL Creatinine 1.06 (0.72-1.25) mg/dL Glucose 148 H (70-99) mg/dL Calcium 8.6 (8.6-10.8) mg/dL - VTE Documentation of Mechanical Device: Intermittent pneumatic compression device Consult Discharge Plan - Plan Referrals: [facility] [Primary Care Provider] -
--- NOTE | 2016-09-22 11:40 | Internal Med Progress Note ---
Date of Encounter: 09/22/16 Time of Encounter: 09:00 - Assessment and plan (1) Acute blood loss as cause of postoperative anemia Current Visit: Yes Status: Acute Assessment and plan: Acute the bleeding stopped. Hemoglobin increased to 8.5 after transfusion. We will continue to closely monitor vitals and H&H. (2) CAD (coronary artery disease) Current Visit: Yes Status: Acute Assessment and plan: SP stent. We will continue beta christi and statin. Restart aspirin. Cardiology consult appreciated. Qualifiers: Coronary Disease-Associated Artery/Lesion type: [place] artery [place] vs. transplanted heart: [place] heart Associated angina: without angina Qualified Code(s): I25.10 - Atherosclerotic heart disease of [place] coronary artery without angina pectoris (3) Elevated troponin Current Visit: Yes Status: Acute Assessment and plan: Cardiology consult called. Considering demand ischemia with anemia. Troponin level start trending down. (4) Post-tonsillectomy hemorrhage Current Visit: Yes Status: Acute Assessment and plan: Bleeding is stopped by ENT doctor. We will closely monitor vitals and H&H. Closely watch rebleeding. (5) Severe aortic stenosis Current Visit: Yes Status: Chronic Assessment and plan: Patient is planned to follow up in [facility] (6) DVT prophylaxis Current Visit: No Status: Acute Assessment and plan: EPCD (7) Squamous cell carcinoma of nasopharynx Current Visit: No Status: Acute (8) Diabetes mellitus Current Visit: No Status: Chronic Assessment and plan: Patient was on metformin at home. We will place him on sliding scale. Follow- up glucose level. 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 His past medical history is significant for diabetes, CAD s/p stent, recently diagnosed nasopharyngeal cancer, hypertension, severe aortic stenosis. I saw and examined the patient today. He has no further bleeding. No chest pain, no shortness of breath. Vital signs stable. Hemoglobin 8.5 after transfusion. ENT examined the patient this morning, and think it is reasonable to restart aspirin, as cardiology recommended. Will restart aspirin, continue hold the Plavix. Patient's troponin starts trending down. We will continue to closely monitor patient and follow-up H&H. - Constitutional Vitals: Temp Pulse Resp BP Pulse Ox 98.2 F 75 16 150/78 95 09/22/16 07:00 09/22/16 07:00 09/22/16 08:47 09/22/16 08:47 09/22/16 08:47 General appearance: Present: A&O X 3, obese - Head Head exam: Present: atraumatic, normocephalic - Eye Eye exam: Present: PERRL, conjuntiva pink, sclera anicteric Pupils: Present: PERRL - Neck Neck exam general surgery: Present: supple, trachea midline. Absent: lymphadenopathy - Respiratory Respiratory exam: Present: CTAB. Absent: accessory muscle use, rales, rhonchi, wheezes - Cardiovascular Cardiovascular exam: Present: RRR, +S1, +S2. Absent: diastolic murmur, gallop, rubs, systolic murmur - GI/Abdominal GI/Abdominal exam: Present: normal bowel sounds, soft, no peritoneal signs. Absent: distended, tenderness - Extremities Exam Extremities exam: Present: warm, radial pulses palpable and symetrical. Absent : calf tenderness, cyanotic, pedal edema - Neurological Exam Neurological exam: Present: CN II-XII intact, oriented X3, no focal deficits. Absent: pronater drift, facial droop, speech deficit - Skin Skin exam: Present: dry, intact Internal Medicine: Result - Labs CBC & Chem 7: 09/22/16 03:02 09/22/16 03:02 Labs: Short CBC 09/21/16 09/22/16 Range/Units 17:02 03:02 WBC 10.8 (4.3-11.1) K/mcL Hgb 7.6 L 8.5 L (12.9-16.9) g/dL Hct 23.8 L 26.6 L (37.5-50.1) % Plt Count 223 (140-400) K/mcL BMP 09/22/16 03:02 Sodium 142 Potassium 4.3 Chloride 108 Carbon Dioxide 23 BUN 23 D Creatinine 1.06 Glucose 148 H Calcium 8.6 Cardiac Enzymes 09/21/16 09/21/16 09/22/16 Range/Units 13:05 14:52 03:02 Troponin I 0.22 H* 0.29 H* 0.40 H* (0-0.03) ng/mL 09/22/16 Range/Units 10:03 Troponin I 0.33 H* (0-0.03) ng/mL - ABG Interpretation ABG results: PT/INR, D-dimer PT 14.2 Seconds (9.4-12.1) H 09/21/16 03:17 - VTE Documentation of Mechanical Device: Intermittent pneumatic compression device Consult Discharge Plan - Plan [facility] [Primary Care Provider[facility] -
--- NOTE | 2016-09-22 18:41 | ECHO - Doppler Report ---
Echocardiogram Name: Sam Padilla Date of Study: 09/22/2016 Date: 1940 Ht: 69.0 in Medical Record#: [id number] Age: 76 Wt: 223.0 lb Gender: Male BSA: 2.16 Order #: [id number] Location: [facility] Room #: 3A23 Reading Physician: Houston Villalta DO, FACC, FASE, FASNC Infant Babysitter: Christine Shea RVT, BALDO Ordering Physician: Houston Villalta DO, FACC, FASE, FASNC Primary Physician: [facility] Indications: Elevated troponin Impressions: LVEF 60-65%. Normal LV chamber size and function. Mild concentric left ventricular hypertrophy. Mild left ventricular diastolic dysfunction. Normal right ventricular structure and function. Heavily calcified aortic valve with reduced mobility. Mild aortic regurgitation. Probable severe aortic stenosis. Mean gradient 37 mHg. Peak velocity 4.06 m/s. Dimensionless index 0.22. Unable to estimate RVSP due to lack of TR jet. Left Ventricular Wall Motion: Rest Echo Findings All wall segments showed normal motion. Findings: Study Quality * Technically adequate exam. ECG Findings * Normal sinus rhythm. Left Ventricle * LVEF 60-65%. * Normal LV chamber size and function. * Mild concentric left ventricular hypertrophy. * Mild left ventricular diastolic dysfunction. Right Ventricle * Normal right ventricular structure and function. Left Atrium * Moderately dilated left atrium. Right Atrium * Mildly dilated right atrium. Interatrial Septum * Interatrial septum not well evaluated. Aortic Valve * Heavily calcified aortic valve with reduced mobility. * Mild aortic regurgitation. * Probable severe aortic stenosis. Mean gradient 37 mHg. Peak velocity 4.06 m/s. Dimensionless index 0.22. Mitral Valve * Mild mitral annular calcification * No mitral regurgitation. * No mitral stenosis. Tricuspid Valve * Normal tricuspid valve structure and function. * No tricuspid regurgitation. * Unable to estimate RVSP due to lack of TR jet. Pulmonic Valve * Pulmonic valve is not well visualized. * No pulmonic regurgitation. Aorta * Normally sized aortic root. Pericardium * There is a trivial pericardial effusion present. IVC * Normal IVC dimensions and inspiratory collapse. Pulmonary Artery * Normal visualized portions of the main pulmonary artery. History Hypertension Diabetes History of CAD/PTCA Valvular Disease 01-25-2016 a Previous Echo was performed. Measurements: BP: 132/ 81 2D Normal Values RVIDd: 3.90 cm <2.7 cm IVSd: 1.40 cm 0.6 - 1.0 cm LVIDd: 4.50 cm 3.7 - 5.6 cm LVPWd: 1.40 cm 0.6 - 1.1 cm LVIDs: 3.00 cm 1.5 - 3.6 cm AO: 3.30 cm < 4.0 cm LA: 4.00 cm 2.0 - 4.0cm %FS: 33.30 cm >25 % LVOT Diam: 2.10 cm LA volume: 76 Mitral Valve Dec Time:366.00 msec Peak E:.91 m/sec Peak A:1.32 m/sec E/A Ratio:0.7 Peak E' Lat Ervin:5.35 cm/s Peak E' Med Ervin:5.57 cm/s E/E' Lat Ratio:17 E/E' Med Ratio:16.3 LVOT Peak Ervin:.99 m/sec Mean Ervin:.63 m/sec Peak Grad:4.00 mmHg Mean Grad:2.00 mmHg Aortic Valve Peak Ervin:4.06 m/sec Mean Ervin:2.86 m/sec Peak Grad:66.00 mmHg Mean Grad:37.00 mmHg Valve Area:.94 cm2 AI pressure Half-time: 499.00 msec Updated by Houston Villalta DO, FACHolly, GABRIEL, BRISEYDA on 09/22/2016 6:36:29 PM electronically signed on 09/22/2016 6:37:20 PM with status of Final Wall Motion [place]: 1=Normal, 2=Hypokinesis, 3=Akinesis, 4=Dyskinesis, 5=Aneurysmal, 6=Hyperkinetic, X=Not Visualized (Blank)=Missing
[2016-09-22] MEDS: Latanoprost 2.5 ML BOTTLE RIGHT EYE SCH (21:35)
[2016-09-23] MEDS: *HR* Morphine 2 MG/ML SYRINGE IV PRN ×3 (03:03→09:28)
[2016-09-23] MEDS: *HR* HYDROcodone/Acet 7.5/325 mg TABLET PO PRN (04:34)
[2016-09-23] MEDS: Ipratropium/Albuterol Neb 3 ML IH SCH ×4 (05:24→22:34)
[2016-09-23 07:23] LABS: Basophils % 0.2 %; Eosinophils # 0.1 K/mcL (0.0-0.6); Eosinophils % 1.1 %; Hematocrit 28.7 % (37.5-50.1); Immature Granulocytes % 0.4 % (0-4); Lymphocytes # 1.6 K/mcL (0.6-4.6); Lymphocytes % 15.4 %; Mean Corpuscular HGB Conc 31.4 g/dL (31.6-35.5); Mean Corpuscular Hemoglobin 27.7 pg (28.0-33.3); Mean Corpuscular Volume 88.3 fL (83.0-100.0); Mean Platelet Volume 10.1 fL (9.4-12.4); Monocytes # 0.8 K/mcL (0.0-1.3); Monocytes % 7.5 %; Neutrophils # 7.8 K/mcL (1.6-8.9); Platelet Count 227 K/mcL (140-400); Red Blood Count 3.25 M/mcL (4.19-5.50); Red Cell Distribution Width 14.7 % (11.5-14.5); Segmented Neutrophils % 75.4 %
[2016-09-23 07:29] LABS: BUN/Creatinine Ratio 17 (6-26); Blood Urea Nitrogen 17 mg/dL (8-26); Calcium 8.8 mg/dL (8.6-10.8); Carbon Dioxide 25 mEq/L (19-29); Chloride 105 mEq/L (98-109); Glucose 151 mg/dL (70-99); Osmolality,Calculated 294 (280-300); Potassium 4.2 mEq/L (3.5-4.5); Sodium 140 mEq/L (136-145); eGFR For African Americans > 60 (> 60); eGFR For Non-African Americans > 60 (> 60)
[2016-09-23] MEDS: Cholecalciferol (D-3) 1,000 UNIT TABLET PO SCH (08:01)
[2016-09-23] MEDS: Insulin LISPRO 300 UNITS/3 ML VIAL SQ SCH ×4 (08:01→20:33)
[2016-09-23] MEDS: Finasteride 5 MG TABLET PO SCH (08:01)
[2016-09-23] MEDS: Lisinopril 20 MG TABLET PO SCH (08:02)
[2016-09-23] MEDS: Furosemide 40 MG/4 ML VIAL IV SCH ×2 (08:02→17:49)
[2016-09-23] MEDS ORDERED: Aspirin 81 MG TAB.CHEW PO SCH (09:00)
--- NOTE | 2016-09-23 09:12 | ENT - Progress Note ---
Date of Encounter: 09/23/16 Time of Encounter: 08:40 - Assessment and Plan (1) Hemorrhage, tonsil, postoperative Current Visit: Yes Status: Resolved POD#2 s/p control of post-tonsillectomy hemorrhage. Still no active bleeding seen at the R tonsillar fossa. Not sure where the blood came from that he threw up last night. None this AM. Hb is improving w/o any more units of blood. He was supposed to be started back on ASA today but IM held this due to the blood in the vomitus last night. He was also supposed to be off ASA/Plavix for his PEG later this week in preparation for this nasopharyngeal carcinoma treatment. 1. Recommend holding on ASA unless it is necessary from a cardiac perspective. Sutures have fallen out, and with the source of last night's bleeding unknown he is certainly still at risk for further bleeding. 2. Recommend talking to Dr. Santana ramires: placement of PEG in this setting. 3. Will sign off to Dr. Yue woods but will keep following in house. Please call with questions/concerns. Sancho Cheatham MD Subjective Patient reports: other (Tolerating soft diet. Not spitting up any blood but he says he threw up some blood-tinged mucus last night. Threw up again this AM but no blood that time. ASA has not been restarted. Troponins started to come down yesterday. Hb check today showed improvement.) Objective Initial Vital Signs Temp Pulse Resp BP Pulse Ox 97.8 F 80 18 114/79 92 L 09/21/16 02:55 09/21/16 02:55 09/21/16 02:55 09/21/16 02:55 09/21/16 02:55 - General physical appearance obese - ENT Other (No bleeding in the oropharynx; sutures on the R tonsillar pillar have broken, healing well in the R tonsillar fossa) - Labs 09/23/16 06:42 09/23/16 06:42 Diabetes panel 09/23/16 Range/Units 06:42 Sodium 140 (136-145) mEq/L Potassium 4.2 (3.5-4.5) mEq/L Chloride 105 (98-109) mEq/L Carbon Dioxide 25 (19-29) mEq/L BUN 17 (8-26) mg/dL Creatinine 1.02 (0.72-1.25) mg/dL Glucose 151 H (70-99) mg/dL Calcium 8.8 (8.6-10.8) mg/dL Calcium panel 09/23/16 Range/Units 06:42 Calcium 8.8 (8.6-10.8) mg/dL Pituitary panel 09/23/16 Range/Units 06:42 Sodium 140 (136-145) mEq/L Potassium 4.2 (3.5-4.5) mEq/L Chloride 105 (98-109) mEq/L Carbon Dioxide 25 (19-29) mEq/L BUN 17 (8-26) mg/dL Creatinine 1.02 (0.72-1.25) mg/dL Glucose 151 H (70-99) mg/dL Calcium 8.8 (8.6-10.8) mg/dL Adrenal panel 09/23/16 Range/Units 06:42 Sodium 140 (136-145) mEq/L Potassium 4.2 (3.5-4.5) mEq/L Chloride 105 (98-109) mEq/L Carbon Dioxide 25 (19-29) mEq/L BUN 17 (8-26) mg/dL Creatinine 1.02 (0.72-1.25) mg/dL Glucose 151 H (70-99) mg/dL Calcium 8.8 (8.6-10.8) mg/dL - VTE Documentation of Mechanical Device: Intermittent pneumatic compression device Consult Discharge Plan - Plan [facility]errals: [facility] [Primary Care Provider] -
[2016-09-23] MEDS: Ondansetron ODT 4 MG TAB.RAPDIS PO PRN (09:29)
[2016-09-23] MEDS: *HR* HYDROcodone/Acet 5/325 mg TABLET PO PRN ×4 (10:11→22:30)
--- NOTE | 2016-09-23 10:48 | Internal Med Progress Note ---
Date of Encounter: 09/23/16 Time of Encounter: 09:00 - Assessment and plan (1) Acute blood loss as cause of postoperative anemia Current Visit: Yes Status: Acute Assessment and plan: Acute the bleeding stopped. Hemoglobin stable after transfusion. We will continue to closely monitor vitals and H&H. (2) CAD (coronary artery disease) Current Visit: Yes Status: Acute Assessment and plan: SP stent. We will continue beta christi and statin. Continue hold aspirin and Plavix because still trace bleeding and the patient has planned to have PEG tube. Cardiology consult appreciated. Qualifiers: Coronary Disease-Associated Artery/Lesion type: [place] artery [place] vs. transplanted heart: [place] heart Associated angina: without angina Qualified Code(s): I25.10 - Atherosclerotic heart disease of [place] coronary artery without angina pectoris (3) Elevated troponin Current Visit: Yes Status: Acute Assessment and plan: Cardiology consult called. Considering demand ischemia with anemia. Troponin level start trending down. (4) Post-tonsillectomy hemorrhage Current Visit: Yes Status: Acute Assessment and plan: Bleeding is stopped by ENT doctor. We will closely monitor vitals and H&H. Closely watch rebleeding. (5) Severe aortic stenosis Current Visit: Yes Status: Chronic Assessment and plan: Patient is planned to follow up in [facility]. Repeat echo shows severe (6) DVT prophylaxis Current Visit: No Status: Acute Assessment and plan: EPCD (7) Squamous cell carcinoma of nasopharynx Current Visit: No Status: Acute (8) Diabetes mellitus Current Visit: No Status: Chronic Assessment and plan: Patient was on metformin at home. We will place him on sliding scale. Follow- up glucose level. Qualifiers: Diabetes mellitus type: type 2 Diabetes mellitus complication status: with kidney complications Diabetes mellitus complication detail: with nephropathy Diabetes mellitus continuous churn buttermaker insulin use: without continuous churn buttermaker use Qualified Code(s): E11.21 - Type 2 diabetes mellitus with diabetic nephropathy (9) Hypertension Current Visit: Yes Status: Acute Assessment and plan: Patient is on lisinopril and metoprolol. Add amlodipine 5 mg by mouth daily because BP is still high. Adequate pain control will also bring BP down . Qualifiers: Hypertension type: essential hypertension Qualified Code(s): I10 - Essential (primary) hypertension - Time Spent With Patient 25 - 35 minutes - Subjective Interval history: Patient is a 76-year-old male admitted for bleeding after tonsillectomy. His past medical history is significant for diabetes, CAD s/p stent, recently diagnosed nasopharyngeal cancer, hypertension, severe aortic stenosis. I saw and examined the patient today. He c/o trace blood with sputum. No chest pain, no shortness of breath. Vital signs stable. Hemoglobin stable after transfusion. Patient had stent placement in 2010. Patient and family told me they plan to have a PEG tube recently. Will continue hold aspirin and Plavix. Patient's troponin starts trending down. Add amlodipine 5 mg by mouth daily because his blood pressure is still high. We will continue to closely monitor patient and follow-up H&H. - Constitutional Vitals: Temp Pulse Resp BP Pulse Ox 98.2 F 61 18 157/74 95 09/23/16 07:00 09/23/16 07:00 09/23/16 07:00 09/23/16 07:00 09/23/16 07:00 General appearance: Present: A&O X 3, obese - Head Head exam: Present: atraumatic, normocephalic - Eye Eye exam: Present: PERRL, conjuntiva pink, sclera anicteric Pupils: Present: PERRL - Neck Neck exam general surgery: Present: supple, trachea midline. Absent: lymphadenopathy - Respiratory Respiratory exam: Present: CTAB. Absent: accessory muscle use, rales, rhonchi, wheezes - Cardiovascular Cardiovascular exam: Present: RRR, +S1, +S2. Absent: diastolic murmur, gallop, rubs, systolic murmur - GI/Abdominal GI/Abdominal exam: Present: normal bowel sounds, soft, no peritoneal signs. Absent: distended, tenderness - Extremities Exam Extremities exam: Present: warm, radial pulses palpable and symetrical. Absent : calf tenderness, cyanotic, pedal edema - Neurological Exam Neurological exam: Present: CN II-XII intact, oriented X3, no focal deficits. Absent: pronater drift, facial droop, speech deficit - Skin Skin exam: Present: dry, intact Internal Medicine: Result - Labs CBC & Chem 7: 09/23/16 06:42 09/23/16 06:42 Labs: Short CBC 09/23/16 Range/Units 06:42 WBC 10.3 (4.3-11.1) K/mcL Hgb 9.0 L (12.9-16.9) g/dL Hct 28.7 L (37.5-50.1) % Plt Count 227 (140-400) K/mcL Neutrophils # 7.8 (1.6-8.9) K/mcL BMP 09/23/16 06:42 Sodium 140 Potassium 4.2 Chloride 105 Carbon Dioxide 25 BUN 17 Creatinine 1.02 Glucose 151 H Calcium 8.8 - ABG Interpretation ABG results: PT/INR, D-dimer PT 14.2 Seconds (9.4-12.1) H 09/21/16 03:17 - VTE Documentation of Mechanical Device: Intermittent pneumatic compression device Consult Discharge Plan - Plan [facility]errals: [facility] [Primary Care Provider] -
[2016-09-23] MEDS: amLODIPine 5 MG TABLET PO SCH (12:21)
[2016-09-23] MEDS: Latanoprost 2.5 ML BOTTLE RIGHT EYE SCH (20:36)
[2016-09-24] MEDS: *HR* HYDROcodone/Acet 5/325 mg TABLET PO PRN ×6 (02:46→23:01)
[2016-09-24 03:11] LABS: Basophils % 0.3 %; Eosinophils # 0.2 K/mcL (0.0-0.6); Eosinophils % 1.9 %; Hematocrit 28.9 % (37.5-50.1); Hemoglobin 9.2 g/dL (12.9-16.9); Immature Granulocytes % 0.5 % (0-4); Lymphocytes # 1.8 K/mcL (0.6-4.6); Lymphocytes % 19.4 %; Mean Corpuscular HGB Conc 31.8 g/dL (31.6-35.5); Mean Corpuscular Volume 88.1 fL (83.0-100.0); Mean Platelet Volume 9.8 fL (9.4-12.4); Monocytes # 0.7 K/mcL (0.0-1.3); Monocytes % 7.9 %; Neutrophils # 6.6 K/mcL (1.6-8.9); Platelet Count 233 K/mcL (140-400); Red Blood Count 3.28 M/mcL (4.19-5.50); Red Cell Distribution Width 14.9 % (11.5-14.5)
[2016-09-24 03:27] LABS: BUN/Creatinine Ratio 17 (6-26); Blood Urea Nitrogen 19 mg/dL (8-26); Calcium 8.9 mg/dL (8.6-10.8); Carbon Dioxide 25 mEq/L (19-29); Chloride 103 mEq/L (98-109); Glucose 149 mg/dL (70-99); Osmolality,Calculated 295 (280-300); Potassium 4.2 mEq/L (3.5-4.5); Sodium 140 mEq/L (136-145); eGFR For African Americans > 60 (> 60); eGFR For Non-African Americans > 60 (> 60)
[2016-09-24] MEDS: Ipratropium/Albuterol Neb 3 ML IH SCH ×4 (03:58→21:51)
[2016-09-24] MEDS: Furosemide 40 MG/4 ML VIAL IV SCH ×2 (08:25→19:03)
[2016-09-24] MEDS: Lisinopril 20 MG TABLET PO SCH (08:26)
[2016-09-24] MEDS: Cholecalciferol (D-3) 1,000 UNIT TABLET PO SCH (08:26)
[2016-09-24] MEDS: Insulin LISPRO 300 UNITS/3 ML VIAL SQ SCH ×4 (08:26→22:37)
[2016-09-24] MEDS: amLODIPine 5 MG TABLET PO SCH (08:26)
[2016-09-24] MEDS: Finasteride 5 MG TABLET PO SCH (08:26)
--- NOTE | 2016-09-24 14:08 | Event Note ---
Date of Encounter: 09/24/16 Time of Encounter: 14:00 Discussed with patient that we will plan for peg tube placement 09/25/16 with Sever around 12-1300. NPO after midnight Consent placed on patient charge Ancef ordered for 30 minutes prior to peg tube placement Patient and his verbalized understanding Notified Nora professor of surgery to move patient from Saturday09/28/16 to tomorrow , 09/25/16.
[2016-09-24] MEDS: 0.9 % Sodium Chloride 1,000 ML IVC SCH (14:44)
--- NOTE | 2016-09-24 15:22 | ENT - Progress Note ---
Date of Encounter: 09/24/16 Time of Encounter: 14:00 - Assessment and Plan (1) Hemorrhage, tonsil, postoperative Current Visit: Yes Status: Resolved Patient with a short period of sporadic bleeding this afternoon. It appears the bleeding is stopped with icy cold swish and spit. Patient currently without any bleeding and no clot or active bleeding is visualized on examination of the tonsil fossa. We will continue to monitor this patient closely for any recurrence of bleeding. Recommending continuing to hold any anticoagulation at this point. Would recommend holding Plavix until the tonsil fossa is healed in two weeks if possible. Subjective Patient reports: other (Bleeding from oropharynx) Narrative: Patient was seen and examined postop day #3 for hemostasis of tonsil bleed. 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 Patient was taken back for hemostasis of his tonsil bleed. Patient doing well up until a few hours ago when he coughed up some clots of blood. Patient was immediately started on icy cold's water to swish and spit. This did resolve any bleeding. Patient denies any further bleeding or pain currently. Patient does feel somewhat weak. Objective Initial Vital Signs Temp Pulse Resp BP Pulse Ox 97.8 F 80 18 114/79 92 L 09/21/16 02:55 09/21/16 02:55 09/21/16 02:55 09/21/16 02:55 09/21/16 02:55 - General physical appearance well developed, well nourished, obese, other (Pallor of the skin) - Eyes PERRL, normal ocular movement - ENT normal pinna, normal nares, Other (Mouth shows that the right tonsil is surgically absent, eschar present, there are some dissolvable stitches located in the upper pole that are partially extruded. No blood clot or active bleeding visualized within the tonsil fossa.) - Neck other (Large conglomerate of matted nodes in the right neck, surgical scar in the right neck is healing) - Respiratory normal expansion, normal respiratory effort - Labs 09/24/16 02:45 09/24/16 02:45 Diabetes panel 09/24/16 Range/Units 02:45 Sodium 140 (136-145) mEq/L Potassium 4.2 (3.5-4.5) mEq/L Chloride 103 (98-109) mEq/L Carbon Dioxide 25 (19-29) mEq/L BUN 19 (8-26) mg/dL Creatinine 1.10 (0.72-1.25) mg/dL Glucose 149 H (70-99) mg/dL Calcium 8.9 (8.6-10.8) mg/dL Calcium panel 09/24/16 Range/Units 02:45 Calcium 8.9 (8.6-10.8) mg/dL Pituitary panel 09/24/16 Range/Units 02:45 Sodium 140 (136-145) mEq/L Potassium 4.2 (3.5-4.5) mEq/L Chloride 103 (98-109) mEq/L Carbon Dioxide 25 (19-29) mEq/L BUN 19 (8-26) mg/dL Creatinine 1.10 (0.72-1.25) mg/dL Glucose 149 H (70-99) mg/dL Calcium 8.9 (8.6-10.8) mg/dL Adrenal panel 09/24/16 Range/Units 02:45 Sodium 140 (136-145) mEq/L Potassium 4.2 (3.5-4.5) mEq/L Chloride 103 (98-109) mEq/L Carbon Dioxide 25 (19-29) mEq/L BUN 19 (8-26) mg/dL Creatinine 1.10 (0.72-1.25) mg/dL Glucose 149 H (70-99) mg/dL Calcium 8.9 (8.6-10.8) mg/dL - VTE Documentation of Mechanical Device: Intermittent pneumatic compression device Consult Discharge Plan - Plan [facility]errals: [facility] [Primary Care Provider] -
--- NOTE | 2016-09-24 16:17 | Internal Med Progress Note ---
Date of Encounter: 09/24/16 Time of Encounter: 15:00 - Assessment and plan (1) Acute blood loss as cause of postoperative anemia Current Visit: Yes Status: Acute Assessment and plan: Acute the bleeding restart this afternoon but stopped after ice cooling. We will continue to closely monitor vitals and H&H. ENT doctor is on case (2) CAD (coronary artery disease) Current Visit: Yes Status: Acute Assessment and plan: SP stent. We will continue beta christi and statin. Continue hold aspirin and Plavix because still active bleeding and the patient has planned to have PEG tube. Cardiology consult appreciated. Qualifiers: Coronary Disease-Associated Artery/Lesion type: [place] artery [place] vs. transplanted heart: [place] heart Associated angina: without angina Qualified Code(s): I25.10 - Atherosclerotic heart disease of [place] coronary artery without angina pectoris (3) Elevated troponin Current Visit: Yes Status: Acute Assessment and plan: Cardiology consult called. Considering demand ischemia with anemia. Troponin level start trending down. (4) Post-tonsillectomy hemorrhage Current Visit: Yes Status: Acute Assessment and plan: Bleeding is stopped by ENT doctor. But some rebleeding happens. We will closely monitor vitals and H&H. Closely watch rebleeding. (5) Severe aortic stenosis Current Visit: Yes Status: Chronic Assessment and plan: Patient is planned to follow up in [facility]. Repeat echo shows severe (6) DVT prophylaxis Current Visit: No Status: Acute Assessment and plan: EPCD (7) Squamous cell carcinoma of nasopharynx Current Visit: No Status: Acute Assessment and plan: Patient will follow oncology in [place] (8) Diabetes mellitus Current Visit: No Status: Chronic Assessment and plan: Patient was on metformin at home. We will place him on sliding scale. Follow- up glucose level. Qualifiers: Diabetes mellitus type: type 2 Diabetes mellitus complication status: with kidney complications Diabetes mellitus complication detail: with nephropathy Diabetes mellitus order booker insulin use: without group home use Qualified Code(s): E11.21 - Type 2 diabetes mellitus with diabetic nephropathy (9) Hypertension Current Visit: Yes Status: Acute Assessment and plan: Patient is on lisinopril and metoprolol. Add amlodipine 5 mg by mouth daily because BP is still high. Adequate pain control will also bring BP down . Qualifiers: Hypertension type: essential hypertension Qualified Code(s): I10 - Essential (primary) hypertension - Time Spent With Patient 25 - 35 minutes - Subjective Interval history: Patient is a 76-year-old male admitted for bleeding after tonsillectomy. His past medical history is significant for diabetes, CAD s/p stent, recently diagnosed nasopharyngeal cancer, hypertension, severe aortic stenosis. I saw and examined the patient today. He has several spits of bleeding this afternoon, stopped by ice switch and spit. ENT examined him, no active bleeding. His vitals are stable. We will continue close monitoring. Check H& H this afternoon. Surgical consult saw Patient and the plan for PEG tube tomorrow. - Constitutional Vitals: Temp Pulse Resp BP Pulse Ox 98.7 F 75 18 132/67 92 L 09/24/16 14:39 09/24/16 14:39 09/24/16 14:39 09/24/16 14:39 09/24/16 14:39 General appearance: Present: A&O X 3, obese - Head Head exam: Present: atraumatic, normocephalic - Eye Eye exam: Present: PERRL, conjuntiva pink, sclera anicteric Pupils: Present: PERRL - Neck Neck exam general surgery: Present: supple, trachea midline. Absent: lymphadenopathy - Respiratory Respiratory exam: Present: CTAB. Absent: accessory muscle use, rales, rhonchi, wheezes - Cardiovascular Cardiovascular exam: Present: RRR, +S1, +S2. Absent: diastolic murmur, gallop, rubs, systolic murmur - GI/Abdominal GI/Abdominal exam: Present: normal bowel sounds, soft, no peritoneal signs. Absent: distended, tenderness - Extremities Exam Extremities exam: Present: warm, radial pulses palpable and symetrical. Absent : calf tenderness, cyanotic, pedal edema - Neurological Exam Neurological exam: Present: CN II-XII intact, oriented X3, no focal deficits. Absent: pronater drift, facial droop, speech deficit - Skin Skin exam: Present: dry, intact Internal Medicine: Result - Labs CBC & Chem 7: 09/24/16 02:45 09/24/16 02:45 Labs: Short CBC 09/24/16 Range/Units 02:45 WBC 9.4 (4.3-11.1) K/mcL Hgb 9.2 L (12.9-16.9) g/dL Hct 28.9 L (37.5-50.1) % Plt Count 233 (140-400) K/mcL Neutrophils # 6.6 (1.6-8.9) K/mcL BMP 09/24/16 02:45 Sodium 140 Potassium 4.2 Chloride 103 Carbon Dioxide 25 BUN 19 Creatinine 1.10 Glucose 149 H Calcium 8.9 - ABG Interpretation ABG results: PT/INR, D-dimer PT 14.2 Seconds (9.4-12.1) H 09/21/16 03:17 - VTE Documentation of Mechanical Device: Intermittent pneumatic compression device Consult Discharge Plan - Plan [facility]errals: [facility] [Primary Care Provider] -
[2016-09-24 17:05] LABS: Hematocrit 29.1 % (37.5-50.1); Hemoglobin 9.2 g/dL (12.9-16.9)
[2016-09-24] MEDS: Latanoprost 2.5 ML BOTTLE RIGHT EYE SCH (22:38)
[2016-09-25] MEDS: *HR* HYDROcodone/Acet 5/325 mg TABLET PO PRN ×3 (03:01→11:07)
[2016-09-25] MEDS: Ipratropium/Albuterol Neb 3 ML IH SCH ×4 (04:51→22:21)
[2016-09-25 04:54] LABS: Basophils % 0.5 %; Eosinophils # 0.3 K/mcL (0.0-0.6); Eosinophils % 2.8 %; Hematocrit 27.7 % (37.5-50.1); Hemoglobin 8.6 g/dL (12.9-16.9); Immature Granulocytes % 0.3 % (0-4); Lymphocytes # 1.5 K/mcL (0.6-4.6); Lymphocytes % 17.3 %; Mean Corpuscular Hemoglobin 27.9 pg (28.0-33.3); Mean Corpuscular Volume 89.9 fL (83.0-100.0); Mean Platelet Volume 9.8 fL (9.4-12.4); Monocytes # 0.7 K/mcL (0.0-1.3); Monocytes % 8.2 %; Neutrophils # 6.3 K/mcL (1.6-8.9); Platelet Count 225 K/mcL (140-400); Red Blood Count 3.08 M/mcL (4.19-5.50); Red Cell Distribution Width 14.7 % (11.5-14.5); Segmented Neutrophils % 70.9 %
[2016-09-25 05:08] LABS: BUN/Creatinine Ratio 17 (6-26); Blood Urea Nitrogen 20 mg/dL (8-26); Calcium 8.6 mg/dL (8.6-10.8); Carbon Dioxide 26 mEq/L (19-29); Chloride 106 mEq/L (98-109); Glucose 151 mg/dL (70-99); Osmolality,Calculated 302 (280-300); Sodium 143 mEq/L (136-145); eGFR For African Americans > 60 (> 60); eGFR For Non-African Americans > 60 (> 60)
[2016-09-25] MEDS: *HR* Morphine 2 MG/ML SYRINGE IVP PRN ×4 (05:34→18:23)
[2016-09-25] MEDS: Lisinopril 20 MG TABLET PO SCH (07:56)
[2016-09-25] MEDS: Furosemide 40 MG/4 ML VIAL IV SCH ×2 (07:57→17:49)
[2016-09-25] MEDS: Finasteride 5 MG TABLET PO SCH (07:57)
[2016-09-25] MEDS: amLODIPine 5 MG TABLET PO SCH (07:57)
[2016-09-25] MEDS: Cholecalciferol (D-3) 1,000 UNIT TABLET PO SCH (07:57)
[2016-09-25] MEDS: Insulin LISPRO 300 UNITS/3 ML VIAL SQ SCH ×4 (08:05→21:10)
[2016-09-25] MEDS ORDERED: *HR* Propofol 200 MG/20 ML VIAL IVP ONE (10:32)
--- NOTE | 2016-09-25 11:55 | Anesthesia Evaluation PreOp ---
Date of Encounter: 09/25/16 Time of Encounter: 11:53 - Past History Planned Operation: PEG tube insertion Cardiac History: RI, HTN, Hyperlipidemia, Arrhythmia, Cardiac Stent Pulmonary History: Asthma, COPD VICE INVESTIGATOR History: Denies Any Significant HX Other Medical History: Diabetes Type II, Other (RA) Anesthesia History: No Prior Anesthetic Complications, Past Anesthesia (Neck Mass, GB, ERCP, Septoplasty, Tosillectomy) Alcohol Use: none Drug use: none Medications and Allergies Metformin [Glucophage] 850 mg PO BID 06/05/15 [History] Albuterol Sulfate [Proair Respiclick] 2 puff IH Q4H PRN 06/06/15 [History] Aspirin 81 mg PO DAILY 06/06/15 [History] Finasteride [Proscar] 5 mg PO DAILY 06/06/15 [History] Lisinopril [Zestril] 40 mg PO DAILY 06/06/15 [History] Terazosin [Hytrin] 5 mg PO HS 06/06/15 [History] Acetaminophen [Tylenol] 650 mg PO Q6HR PRN 02/21/16 [History] Atorvastatin Calcium [Lipitor] 20 mg PO HS 02/21/16 [History] Clopidogrel Bisulfate [Plavix] 75 mg PO DAILY 02/21/16 [History] Pantoprazole Sodium [Protonix] 40 mg PO DAILY 02/21/16 [History] Cholecalciferol (D-3) [Vitamin D] 1,000 unit PO DAILY 05/30/16 [History] Docusate [Colace] 100 mg PO BID PRN 05/30/16 [History] Fluticasone Propionate Nasal [Flonase] 2 spr NS DAILY PRN 05/30/16 [History] Latanoprost [Xalatan] 1 drop RIGHT EYE HS 05/30/16 [History] Metoprolol [Lopressor] 25 mg PO BID 08/29/16 [History] Dexamethasone [Decadron] 4 mg PO BID #36 tab 09/12/16 [Rx] Magic Mouthwash [Magic Mouthwash BLM] 10 ml PO QID PRN #240 ml 09/12/16 [Rx] Ondansetron [Zofran] 4 mg PO Q8HR PRN #90 tablet 09/12/16 [Rx] Prochlorperazine Maleate [Compazine] 10 mg PO Q8HR PRN #90 tablet 09/12/16 [Rx] HYDROcodone/Acet 10/325 mg [[place] 10-325 mg] 1 - 2 tab PO Q4HR PRN #120 tab [Rx] Polyethylene Glycol 3350 [MiraLAX] 17 gm PO DAILY #30 powd.pack 09/14/16 [Rx] Allergies No Known Allergies Allergy (Verified 09/21/16 03:01) - Meds/Allergy Pre-op Review Medications Reviewed: Yes Allergies Reviewed: Yes Beta Blockers on Current Med List: Yes If Beta Blockers taken, Date/Time (Last Dose taken): 07:57 09/25/2016 Anesthesia Results - Labs 09/25/16 04:30 09/25/16 04:30 02/21/16 Cath Stable Mod. CAD Stent from prior procedure 30-40% restenosis 01/25/16 Echo EF - 60-65% Mild LV diastolic dysfunction Mod-Severe Aortic stenosis. Mean Gradient 38 mm Hg and peak 4.2 m/s No evidence pulm HTN - Imaging EKG: image reviewed (SR, LVH) Anesthesia Exam O2 Sat O2 Sat by Pulse Oximetry 94 O2 Sat by Pulse Oximetry 93 O2 Sat by Pulse Oximetry 94 O2 Sat by Pulse Oximetry 94 O2 Sat by Pulse Oximetry 94 O2 Sat by Pulse Oximetry 100 O2 Sat by Pulse Oximetry 96 O2 Sat by Pulse Oximetry 92 Vital Signs Temp Pulse Resp BP Pulse Ox 97.8 F 80 18 114/79 92 L 09/21/16 02:55 09/21/16 02:55 09/21/16 02:55 09/21/16 02:55 09/21/16 02:55 - HEENT Pupil (Motor): Pupils equal, EOMI Mallampati: III Teeth: Missing Denture Type: Upper: Complete Oral Opening: Greater than 3 - VICE INVESTIGATOR LOC: Oriented VICE INVESTIGATOR Motor: Normal RUE, Normal LUE, Normal RLE, Normal LLE, Normal Face VICE INVESTIGATOR Sensory: Normal: RUE, LUE, RLE, LLE, Face - Cardiac Rhythm: Regular Murmur: None JVD: No Carotid Bruit: No - Pulmonary Breath Sounds: bilateral Clear Respiratory Effort: Symmetrical Anesthesia Assess/Plan ASA Score: 3 Modified Holbrook Scale for Level of Consciousness: Cooperative, oriented, and tranquil Anesthetic Plan: MAC Autologous Blood: Yes Monitoring Plan: Standard Monitors Recovery Plan: Other
[2016-09-25] MEDS ORDERED: ceFAZolin 2,000 MG in D5% in Water (Mini-Bag+) 100 ML IVPB ONE (12:00)
[2016-09-25] MEDS: 0.9 % Sodium Chloride 1,000 ML IVC SCH (13:00)
--- NOTE | 2016-09-25 15:42 | Internal Med Progress Note ---
Date of Encounter: 09/25/16 Time of Encounter: 15:40 - Assessment and plan (1) Acute blood loss as cause of postoperative anemia Current Visit: Yes Status: Acute Assessment and plan: Acute the bleeding has stopped. We will continue to closely monitor vitals and H&H. ENT on the case. PEG tube placement today. Possible discharge tomorrow. (2) CAD (coronary artery disease) Current Visit: Yes Status: Acute Assessment and plan: SP stent. We will continue beta christi and statin. Continue hold aspirin and Plavix because still active bleeding and the patient has planned to have PEG tube. Cardiology consult appreciated. Qualifiers: Coronary Disease-Associated Artery/Lesion type: [place] artery [place] vs. transplanted heart: [place] heart Associated angina: without angina Qualified Code(s): I25.10 - Atherosclerotic heart disease of [place] coronary artery without angina pectoris (3) Elevated troponin Current Visit: Yes Status: Acute Assessment and plan: Cardiology consult called. Considering demand ischemia with anemia. (4) Hypertension Current Visit: Yes Status: Acute Assessment and plan: Patient is on lisinopril and metoprolol and amlodipine. Qualifiers: Hypertension type: essential hypertension Qualified Code(s): I10 - Essential (primary) hypertension (5) Post-tonsillectomy hemorrhage Current Visit: Yes Status: Acute (6) Severe aortic stenosis Current Visit: Yes Status: Chronic (7) DVT prophylaxis Current Visit: No Status: Acute - Subjective Interval history: This is my first encounter with the patient. The patient is feeling better, no more bleeding from yesterday. We will go for PEG tube placement today. - Constitutional Vitals: Temp Pulse Resp BP Pulse Ox 97.8 F 76 16 159/83 97 09/25/16 15:06 09/25/16 15:06 09/25/16 15:06 09/25/16 15:06 09/25/16 15:06 General appearance: Present: A&O X 3, obese - Head Head exam: Present: atraumatic, normocephalic - Eye Eye exam: Present: PERRL, conjuntiva pink, sclera anicteric Pupils: Present: PERRL - Neck Neck exam general surgery: Present: supple, trachea midline. Absent: lymphadenopathy - Respiratory Respiratory exam: Present: CTAB. Absent: accessory muscle use, rales, rhonchi, wheezes - Cardiovascular Cardiovascular exam: Present: RRR, +S1, +S2. Absent: diastolic murmur, gallop, rubs, systolic murmur - GI/Abdominal GI/Abdominal exam: Present: normal bowel sounds, soft, no peritoneal signs. Absent: distended, tenderness - Extremities Exam Extremities exam: Present: warm, radial pulses palpable and symetrical. Absent : calf tenderness, cyanotic, pedal edema - Neurological Exam Neurological exam: Present: CN II-XII intact, oriented X3, no focal deficits. Absent: pronater drift, facial droop, speech deficit - Skin Skin exam: Present: dry, intact Internal Medicine: Result - Labs CBC & Chem 7: 09/25/16 04:30 09/25/16 04:30 Labs: Short CBC 09/24/16 09/25/16 Range/Units 16:58 04:30 WBC 8.8 (4.3-11.1) K/mcL Hgb 9.2 L 8.6 L (12.9-16.9) g/dL Hct 29.1 L 27.7 L (37.5-50.1) % Plt Count 225 (140-400) K/mcL Neutrophils # 6.3 (1.6-8.9) K/mcL BMP 09/25/16 04:30 Sodium 143 Potassium 4.0 Chloride 106 Carbon Dioxide 26 BUN 20 Creatinine 1.15 Glucose 151 H Calcium 8.6 - ABG Interpretation ABG results: PT/INR, D-dimer PT 14.2 Seconds (9.4-12.1) H 09/21/16 03:17 - VTE Documentation of Mechanical Device: Intermittent pneumatic compression device Consult Discharge Plan - Plan [facility]errals: [facility] [Primary Care Provider] -
[2016-09-25] MEDS: Ondansetron ODT 4 MG TAB.RAPDIS PO PRN (18:47)
[2016-09-25] MEDS: *HR* HYDROmorphone 2 MG/ML SYRINGE IVP PRN (21:07)
[2016-09-25] MEDS: Latanoprost 2.5 ML BOTTLE RIGHT EYE SCH (21:10)
[2016-09-25] MEDS: carBAMazepine 200 MG TABLET PO SCH (23:53)
[2016-09-26] MEDS: *HR* HYDROmorphone 2 MG/ML SYRINGE IVP PRN (01:46)
[2016-09-26] MEDS: Ipratropium/Albuterol Neb 3 ML IH SCH ×3 (04:24→15:13)
[2016-09-26] MEDS: 0.9 % Sodium Chloride 1,000 ML IVC SCH (05:35)
[2016-09-26] MEDS ORDERED: *HR* Morphine Sulfate SR (12 HR) 15 MG TABLET.ER PO SCH (06:00)
[2016-09-26 06:02] LABS: Basophils % 0.3 %; Eosinophils # 0.1 K/mcL (0.0-0.6); Eosinophils % 0.6 %; Hematocrit 28.7 % (37.5-50.1); Hemoglobin 8.9 g/dL (12.9-16.9); Immature Granulocytes % 0.5 % (0-4); Lymphocytes # 1.6 K/mcL (0.6-4.6); Mean Corpuscular Hemoglobin 27.6 pg (28.0-33.3); Mean Corpuscular Volume 88.9 fL (83.0-100.0); Mean Platelet Volume 10.1 fL (9.4-12.4); Monocytes # 0.8 K/mcL (0.0-1.3); Monocytes % 7.6 %; Neutrophils # 8.3 K/mcL (1.6-8.9); Platelet Count 240 K/mcL (140-400); Red Blood Count 3.23 M/mcL (4.19-5.50); Red Cell Distribution Width 14.4 % (11.5-14.5)
[2016-09-26 06:06] LABS: INR 1.3; Prothrombin Time 14.4 Seconds (9.4-12.1)
[2016-09-26 06:20] LABS: BUN/Creatinine Ratio 18 (6-26); Blood Urea Nitrogen 18 mg/dL (8-26); Calcium 8.8 mg/dL (8.6-10.8); Carbon Dioxide 25 mEq/L (19-29); Chloride 106 mEq/L (98-109); Glucose 129 mg/dL (70-99); Osmolality,Calculated 296 (280-300); Potassium 3.8 mEq/L (3.5-4.5); Sodium 141 mEq/L (136-145); eGFR For African Americans > 60 (> 60); eGFR For Non-African Americans > 60 (> 60)
[2016-09-26] MEDS: *HR* HYDROcodone/Acet 5/325 mg TABLET PO PRN ×2 (08:17→14:53)
[2016-09-26] MEDS: Finasteride 5 MG TABLET PO SCH (08:18)
[2016-09-26] MEDS: Lisinopril 20 MG TABLET PO SCH (08:18)
[2016-09-26] MEDS: Cholecalciferol (D-3) 1,000 UNIT TABLET PO SCH (08:20)
[2016-09-26] MEDS: amLODIPine 5 MG TABLET PO SCH (08:20)
[2016-09-26] MEDS: carBAMazepine 200 MG TABLET PO SCH (08:20)
[2016-09-26] MEDS: Furosemide 40 MG/4 ML VIAL IV SCH (08:20)
[2016-09-26] MEDS: Insulin LISPRO 300 UNITS/3 ML VIAL SQ SCH ×2 (08:21→12:00)
--- NOTE | 2016-09-26 10:58 | Discharge Summary ---
Date of Encounter: 09/26/16 Time of Encounter: 10:52 - Discharge Diagnosis (1) Acute blood loss as cause of postoperative anemia Priority: Primary Status: Acute (2) CAD (coronary artery disease) Priority: Secondary Status: Acute Qualifiers: Coronary Disease-Associated Artery/Lesion type: [place] artery [place] vs. transplanted heart: [place] heart Associated angina: without angina Qualified Code(s): I25.10 - Atherosclerotic heart disease of [place] coronary artery without angina pectoris (3) Elevated troponin Priority: Secondary Status: Acute (4) Hypertension Priority: Secondary Status: Acute Qualifiers: Hypertension type: essential hypertension Qualified Code(s): I10 - Essential (primary) hypertension (5) Post-tonsillectomy hemorrhage Priority: Secondary Status: Acute (6) Severe aortic stenosis Priority: Secondary Status: Chronic (7) DVT prophylaxis Priority: Secondary Status: Acute - Discharge Medications Prescriptions: HYDROcodone/Acet 5/325 mg [[place] 5-325 mg] 2 tab PO Q4H PRN #30 tablet PRN Reason: Pain Home Medications: Metformin [Glucophage] 850 mg PO BID 06/05/15 [History] Albuterol Sulfate [Proair Respiclick] 2 puff IH Q4H PRN 06/06/15 [History] Aspirin 81 mg PO DAILY 06/06/15 [History] Finasteride [Proscar] 5 mg PO DAILY 06/06/15 [History] Lisinopril [Zestril] 40 mg PO DAILY 06/06/15 [History] Terazosin [Hytrin] 5 mg PO HS 06/06/15 [History] Acetaminophen [Tylenol] 650 mg PO Q6HR PRN 02/21/16 [History] Atorvastatin Calcium [Lipitor] 20 mg PO HS 02/21/16 [History] Pantoprazole Sodium [Protonix] 40 mg PO DAILY 02/21/16 [History] Cholecalciferol (D-3) [Vitamin D] 1,000 unit PO DAILY 05/30/16 [History] Docusate [Colace] 100 mg PO BID PRN 05/30/16 [History] Fluticasone Propionate Nasal [Flonase] 2 spr NS DAILY PRN 05/30/16 [History] Latanoprost [Xalatan] 1 drop RIGHT EYE HS 05/30/16 [History] Metoprolol [Lopressor] 25 mg PO BID 08/29/16 [History] Dexamethasone [Decadron] 4 mg PO BID #36 tab 09/12/16 [Rx] Magic Mouthwash [Magic Mouthwash BLM] 10 ml PO QID PRN #240 ml 09/12/16 [Rx] Ondansetron [Zofran] 4 mg PO Q8HR PRN #90 tablet 09/12/16 [Rx] Prochlorperazine Maleate [Compazine] 10 mg PO Q8HR PRN #90 tablet 09/12/16 [Rx] Polyethylene Glycol 3350 [MiraLAX] 17 gm PO DAILY #30 powd.pack 09/14/16 [Rx] HYDROcodone/Acet 5/325 mg [[place] 5-325 mg] 2 tab PO Q4H PRN #30 tablet 09/26/16 [Rx] Allergies/Adverse Reactions: Allergies No Known Allergies Allergy (Verified 09/21/16 03:01) Date of admission: 09/21/16 07:06 [facility] care physician: [facility] Consults: 09/21/16 09:07 Consult to Hospitalist [CONS] Stat Consulting Provider: Hospitalist Genaro Reason for Consult: s/p R tonsil hemorrhage control, now on the floor with SOB, has h/o DM, CAD, aortic stenosis, asthma? Time Notified: 07:45 Call Completed: Yes 09/21/16 14:03 Consult to Cardiology [CONS] Routine Comment: Consulting Provider: Cardiology Shyanne Reason for Consult: NSTEMI Call Completed: Yes 09/23/16 09:14 Consult to Surgery [CONS] Routine Consulting Provider: [facility] Reason for Consult: Pt is scheduled to have PEG with Dr Dillon as outpatient on Sat Call Completed: Yes Discharging clinician: Elias Abdi Anticipated date of discharge: 09/26/16 - Patient Status Disposition: Home, Self-Care Condition: Fair Functional capacity at discharge: independent ambulation Overall status at discharge: patient is back to baseline - Discharge Instructions Follow Up With: [facility] [Primary Care Provider[facility] - - Diet and Activity Activity: increase activity as tolerated Diet: advance to your usual diet Interval History: Mr. 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 He has been oozing blood for the last few weeks but started bleeding more frankly over the last 2 days. Allegedly had solo cups filled when EMS arrived and spit up another 500cc in the ER. He started taking his Plavix and ASA 2 days after his surgery. He was on those for cardiac stents. He stopped the medication 2 days ago for a planned PEG for planned chemo/XRT for nasopharyngeal cancer. S/P R tonsillectomy and biopsies 3 weeks ago. He has an active R tonsil bleed w / loose clot, has been bleeding for 2 weeks and was on ASA and Plavix after surgery. This was not ideal. His Hb is at 7 and he is being transfused 2 units of PRBCs and has platelets on the way. 1. OR for control of bleed 2. Will need platelets 3. Was admitted to Medicine for his multiple medical problems, ENT followed in house Hospital course: Mr. Padilla is a 76 year old male admitted by ENT for persistent bleeding. Underwent laryngoscopy for control of post tonsillectomy bleeding. Date of procedure: 09/21/16 Pre-op diagnosis: Post-tonsillectomy bleed Post-op diagnosis: same Procedure: Date: 09/21/16 Procedure: Direct laryngoscopy, Control of right post-tonsillectomy hemorrhage Pre-op Dx: Post-tonsillectomy hemorrhage, right Post-op Dx: Same Findings: Biopsy sites without bleeding, oozing from the right tonsillar fossa , palpable nodularity in the left nasopharynx Anesthesia: GETA Complications: None EBL: 1ml Surgeon: Sancho Cheatham MD History/Indications: Mr. Padilla is a 76 year-old male who underwent R neck biopsy, R tonsillectomy, laryngoscopy and biopsies for R neck cancer. This was done on 08/29/16. He restarted his ASA and Plavix 2 days after surgery. He has been intermittently oozing from the throat since then but it has been more robust over the last day. Reportedly had cups of blood in his residence and had 500ml of blood in the ED. 2 units of PRBCs and 4 units of platelets were given. He was seen in the ED and seen to have oozing from the R tonsillar fossa. He was consented to take-back to the OR for laryngoscopy and control of post-tonsillectomy hemorrhage. Procedure: Sam Padilla was taken to the OR on 09/21/16 and placed in a supine position on the operating table. He was sedated and intubated. Arms were padded and wrapped. A time-out was performed confirming appropriate patient and surgery. He was rotated 90 degrees in a [id number] fashion. Face was protected with sterile towels. I started with the laryngoscopy. I used a laryngoscope to examine the R tonsillar fossa, base of tongue, larynx and hypopharynx. There was no active bleeding from any sites other than the R tonsillar fossa, which was actively oozing. I removed the laryngoscope. I then placed a Shadia-Issa into his mouth to secure the endotracheal tube to the midline, lower lip. I placed him in suspension and examined the oropharynx. I cauterized the R tonsillar fossa with suction bovie electrocautery. I then placed 3 interrupted 4-0 vicryl sutures to perform a closure of the fossa. This controlled all bleeding. I placed a Metz catheter into the right nares and gomez it from the oropharynx, securing the soft palate anteriorly. I inspected the nasopharynx with a dental mirror. I did not see any evidence of bleeding. I palpated the nasopharynx. I didn't palpate anything on the right side, but I did palpate a nodularity in the left nasopharynx. I removed the catheter. I took him out of suspension and re- suspended to inspect for any repeat bleeding. None was noted. I removed the Shadia-Issa. Anesthesia took control of the endotracheal tube and the patient was rotated back to the original position. He was then extubated and transferred to his bed and PACU in a stable manner. He tolerated the procedure well. I performed the entire procedure myself. Implants: none Surgeon: Sancho Cheatham Estimated blood loss (cc): 1 Condition: stable Patient bleeding stopped, his vital signs are stable. Hemoglobin is stable at 8.9, coagulation profile was within normal limits. Kidney function is stable, the patient has an underlying coronary artery disease and was on Plavix before admission. At this point, after conversation with ENT, decision was made to stop the Plavix for 10 days to prevent further bleeding. Patient underwent PEG tube placement yesterday. The patient has an underlying malignancy and is complaining of facial pain for many months. We will continue with pain control medications as outpatient. The patient is stable for discharge, no active bleeding at this point. He will be prescribed with some pain medications, he was instructed not to take Plavix for 10 days. He will follow-up with ENT and the cancer Center as outpatient. - Time Spent with Patient Total time spent providing and/or coordinating discharge services: Greater than 30 minutes - Constitutional Vitals: Temp Pulse Resp BP Pulse Ox 97.6 F 71 17 147/70 90 L 09/26/16 07:24 09/26/16 07:24 09/26/16 07:24 09/26/16 07:24 09/26/16 07:24 General appearance: Present: A&O X 3, obese - Head Head exam: Present: atraumatic, normocephalic - Eye Eye exam: Present: PERRL, conjuntiva pink, sclera anicteric Pupils: Present: PERRL - Neck Neck exam general surgery: Present: supple, trachea midline. Absent: lymphadenopathy - Respiratory Respiratory exam: Present: CTAB. Absent: accessory muscle use, rales, rhonchi, wheezes - Cardiovascular Cardiovascular exam: Present: RRR, +S1, +S2. Absent: diastolic murmur, gallop, rubs, systolic murmur - GI/Abdominal GI/Abdominal exam: Present: normal bowel sounds, soft, no peritoneal signs. Absent: distended, tenderness - Extremities Exam Extremities exam: Present: warm, radial pulses palpable and symetrical. Absent : calf tenderness, cyanotic, pedal edema - Neurological Exam Neurological exam: Present: CN II-XII intact, oriented X3, no focal deficits. Absent: pronater drift, facial droop, speech deficit - Skin Skin exam: Present: dry, intact - VTE Documentation of Mechanical Device: Intermittent pneumatic compression device
[2016-09-26 12:27] VITALS: BP 123/64
--- NOTE | 2016-09-26 15:36 | Event Note ---
Date of Encounter: 09/26/16 Time of Encounter: 15:35 POD #1 peg tube placement. Peg tube site in clean, dry and intact. No surrounding erythema or induration noted. Peg tube secure at the 4cm caity at the abdominal wall. F/U with surgery as needed.
== END 2016-09-26 16:26 | disposition home or self-care (01) ==
LOC: EMEROO 02:53 → 3ANU 05:29 → SUATTDRO 07:06
PROVIDERS: ADMIT Otolaryngology; ATTEND Internal Medicine

== ENCOUNTER 2016-11-08 19:41 | Inpatient (IN) ==
--- NOTE | 2016-11-08 20:10 | Emergency Department Note ---
Disposition Clinical Impression: Anemia Qualifiers: Anemia type: unspecified type Qualified Code(s): D64.9 - Anemia, unspecified UTI (urinary tract infection) Qualifiers: Urinary tract infection type: site unspecified Hematuria presence: with hematuria Qualified Code(s): N39.0 - Urinary tract infection, site not specified Disposition: Admitted As Inpatient Condition: Good [facility]: [facility]Primary Care Provider[facility] - Forms: ED Satisfaction Letter Fever HPI - General Chief Complaint: ED Fever Stated Complaint: [facility] Fever Time Seen by Provider: 11/08/16 19:52 Source: patient, family, EMS Mode of arrival: EMS Limitations: no limitations Nursing Notes Reviewed: Yes Vital Signs Reviewed: Yes - History of Present Illness HPI Narrative: 76-year-old male with past medical history of head and neck cancer presents with fever, cough, and shortness of breath over the last day. His is sick with similar symptoms. He is status post radiation treatment today and chemotherapy 3 weeks ago. He also was found to have hemoglobin of less than 8 on outpatient labs and was supposed to get a blood transfusion before they found his fever at the outside hospital. He denies any nausea or vomiting. He admits to coughing up blood, but this is minimal and normal with his head and neck cancer. No chest pain, abdominal pain or GI or symptoms. No rashes or edema. He has not received a blood transfusion for about 3 months according to his family. - Related Data Home Medications Medication Instructions Recorded Confirmed Metformin [Glucophage] 850 mg PO BID 06/05/15 11/08/16 Finasteride [Proscar] 5 mg PO DAILY 06/06/15 11/08/16 Lisinopril [Zestril] 20 mg PO BID 06/06/15 11/08/16 Terazosin [Hytrin] 5 mg PO HS 06/06/15 11/08/16 Atorvastatin Calcium [Lipitor] 20 mg PO HS 02/21/16 11/08/16 Pantoprazole Sodium [Protonix] 40 mg PO DAILY 02/21/16 11/08/16 Cholecalciferol (D-3) [Vitamin D] 1,000 unit PO DAILY 05/30/16 11/08/16 Docusate [Colace] 100 mg PO BID PRN 05/30/16 11/08/16 Fluticasone Propionate Nasal 2 spr NS DAILY PRN 05/30/16 11/08/16 [Flonase] Latanoprost [Xalatan] 1 drop RIGHT EYE HS 05/30/16 11/05/16 Metoprolol [Lopressor] 25 mg PO BID 08/29/16 11/08/16 Polyethylene Glycol 3350 [MiraLAX] 17 gm PO PRN PRN 11/05/16 11/08/16 Previous Rx's Medication Instructions Recorded Magic Mouthwash [Magic Mouthwash 10 ml PO QID PRN #240 ml 09/12/16 BLM] Ondansetron [Zofran] 4 mg PO Q8HR PRN #90 tablet 09/12/16 Prochlorperazine Maleate 10 mg PO Q8HR PRN #90 tablet 09/12/16 [Compazine] Promethazine [Phenergan] 25 mg PO Q8HR PRN #90 tablet 10/22/16 HYDROcodone/Acet 7.5/325 mg [[place] 1 - 2 tab PO Q4H PRN #120 tablet 10/23/16 7.5-325 mg] Metoclopramide [Reglan] 10 mg PO QIDAC #120 tablet 10/30/16 Oxycodone HCl [Oxycodone HCl ER] 15 mg PO BID #60 tab.er.12h 11/07/16 Allergies Allergy/AdvReac Type Severity Reaction Status Date / Time No Known Allergies Allergy Verified 11/08/16 19:45 All systems ED: reviewed and negative except as stated. Fever PMH - Past Medical History Medical history: Reports: arthritis, asthma, cancer, COPD, coronary artery disease, diabetes, hyperlipidemia, hypertension, myocardial infarction, valvular heart disease, other Surgical history: Reports: angioplasty/stent, cataract, other Psychiatric history: Reports: no psych history - Social History Smoking Status: Former smoker Alcohol use: Reports: none Drug use: Reports: none Physical Exam - Head Head exam: atraumatic, normocephalic, normal inspection - Eye Eye exam: Present: normal appearance, PERRL, EOMI - ENT ENT exam: Oropharynx shows minimal blood to the posterior oropharynx. Otherwise normal. - Neck Neck exam: There is diffuse swelling which family states is at baseline. - Chest Chest inspection: Present: normal inspection, symmetric chest wall rise - Respiratory Respiratory exam: Clear to auscultation bilaterally without wheezes rales or rhonchi Cardiovascular Cardiovascular exam: Present: regular rate, normal rhythm, normal heart sounds - Abdominal Exam Abdominal exam: G-tube in place. Abdomen is soft and nontender. - Extremities Exam Extremities exam: Present: normal inspection, full ROM - Expanded Lower Extremity Exam Hip/Pelvis exam: Present: normal inspection, full ROM - Back Exam Back exam: Present: normal inspection, full ROM. Absent: tenderness, CVA tenderness (R), CVA tenderness (L) - Neurological Exam Neurological exam: Present: alert, oriented X3, CN II-XII intact - Psychiatric Psychiatric exam: Present: normal affect, normal mood - Skin Skin exam: Present: warm, dry, intact, pallor - General General appearance: alert, in no apparent distress Course - Reevaluation(s) Reevaluation #1: Workup shows hemoglobin diminished at 6.6. Patient also has a urinary tract infection. Transfusion of 2 units is ordered. Rocephin is ordered for urinary tract infection. Hospitalist was paged. Time: 22:12 Reevaluation #2: Accepted by Dr. Pedraza Time: 22:24 Vital Signs Temperature 99.3 F 11/08/16 19:43 Pulse Rate 92 11/08/16 19:43 Respiratory Rate 16 11/08/16 19:43 Blood Pressure 105/58 11/08/16 19:43 O2 Sat by Pulse Oximetry 98 11/08/16 19:43 Temperature 99.3 F 11/08/16 19:43 Pulse Rate 76 11/08/16 22:22 Respiratory Rate 16 11/08/16 22:22 Blood Pressure 112/59 11/08/16 22:22 O2 Sat by Pulse Oximetry 98 11/08/16 22:22 Oxygen Delivery Oxygen Delivery Nasal Cannula Fever - Lab Data Result diagrams: 11/08/16 20:33 11/08/16 20:33 Lab Results 11/08/16 11/08/16 11/08/16 Range/Units 20:33 20:33 20:33 WBC 3.1 L (4.3-11.1) K/mcL RBC 2.36 L (4.19-5.50) M/mcL Hgb 6.6 L (12.9-16.9) g/dL Hct 20.7 L (37.5-50.1) % MCV 87.7 (83.0-100.0) fL MCH 28.0 (28.0-33.3) pg MCHC 31.9 (31.6-35.5) g/dL RDW 16.5 H (11.5-14.5) % Plt Count 114 L (140-400) K/mcL MPV 9.6 (9.4-12.4) fL Immature Gran % 0.0 (0-4) % Seg Neutrophils % 72.4 % Lymphocytes % 12.8 % Monocytes % 14.8 % Eosinophils % 0.0 % Basophils % 0.0 % Neutrophils # 2.2 (1.6-8.9) K/mcL Lymphocytes # 0.4 L (0.6-4.6) K/mcL Monocytes # 0.5 (0.0-1.3) K/mcL Eosinophils # 0.0 (0.0-0.6) K/mcL Basophils # 0.0 (0.0-0.2) K/mcL Sodium 135 L (136-145) mEq/L Potassium 5.3 H (3.5-4.5) mEq/L Chloride 106 (98-109) mEq/L Carbon Dioxide 22 (19-29) mEq/L BUN 27 H (8-26) mg/dL Creatinine 1.53 H (0.72-1.25) mg/dL Est GFR ( Amer) 54 L (> 60) Est GFR (Non-Af Amer) 45 L (> 60) BUN/Creatinine Ratio 18 (6-26) Glucose 112 H (70-99) mg/dL Calculated Osmolality 286 (280-300) Calcium 8.0 L (8.6-10.8) mg/dL Troponin I 0.03 (0-0.03) ng/mL B-Natriuretic Peptide (0-100) pg/mL Urine Color (Yellow) Urine Clarity (Clear) Urine pH (5.0-8.0) pH Units Ur Specific [place] (1.010-1.025) Urine Protein (Neg-Trace) mg/dL Urine Glucose (UA) (Normal) mg/dL Urine Ketones (Negative) mg/dL Urine Blood (Negative) Urine Nitrite (Negative) Urine Bilirubin (Negative) Urine Urobilinogen (Normal) mg/dL Ur Leukocyte Esterase (Negative) Urine Microscopic RBC (0-3) per hpf Urine Microscopic WBC (0-3) per hpf Ur Squamous Epith Cells (None-Few) per lpf Urine Bacteria (None-Few) per hpf Hyaline Casts (None-Few) per lpf Ur Culture Indicated? (NO) Blood Type Antibody Screen Crossmatch 11/08/16 11/08/16 11/08/16 Range/Units 20:33 20:33 21:42 WBC (4.3-11.1) K/mcL RBC (4.19-5.50) M/mcL Hgb (12.9-16.9) g/dL Hct (37.5-50.1) % MCV (83.0-100.0) fL MCH (28.0-33.3) pg MCHC (31.6-35.5) g/dL RDW (11.5-14.5) % Plt Count (140-400) K/mcL MPV (9.4-12.4) fL Immature Gran % (0-4) % Seg Neutrophils % % Lymphocytes % % Monocytes % % Eosinophils % % Basophils % % Neutrophils # (1.6-8.9) K/mcL Lymphocytes # (0.6-4.6) K/mcL Monocytes # (0.0-1.3) K/mcL Eosinophils # (0.0-0.6) K/mcL Basophils # (0.0-0.2) K/mcL Sodium (136-145) mEq/L Potassium (3.5-4.5) mEq/L Chloride (98-109) mEq/L Carbon Dioxide (19-29) mEq/L BUN (8-26) mg/dL Creatinine (0.72-1.25) mg/dL Est GFR ( Amer) (> 60) Est GFR (Non-Af Amer) (> 60) BUN/Creatinine Ratio (6-26) Glucose (70-99) mg/dL Calculated Osmolality (280-300) Calcium (8.6-10.8) mg/dL Troponin I (0-0.03) ng/mL B-Natriuretic Peptide 519 H (0-100) pg/mL Urine Color Yellow (Yellow) Urine Clarity Cloudy A (Clear) Urine pH 6.5 (5.0-8.0) pH Units Ur Specific [place] 1.015 (1.010-1.025) Urine Protein Trace (Neg-Trace) mg/dL Urine Glucose (UA) Normal (Normal) mg/dL Urine Ketones Negative (Negative) mg/dL Urine Blood Trace H (Negative) Urine Nitrite Positive A (Negative) Urine Bilirubin Negative (Negative) Urine Urobilinogen Normal (Normal) mg/dL Ur Leukocyte Esterase Moderate H (Negative) Urine Microscopic RBC 0-3 (0-3) per hpf Urine Microscopic WBC 30-50 H (0-3) per hpf Ur Squamous Epith Cells Moderate H (None-Few) per lpf Urine Bacteria Many H (None-Few) per hpf Hyaline Casts None Seen (None-Few) per lpf Ur Culture Indicated? YES A (NO) Blood Type A NEGATIVE Antibody Screen NEGATIVE Crossmatch See Detail - EKG Data EKG attestation: Yes I reviewed and interpreted this EKG. EKG results narrative: EKG shows normal sinus rhythm at 78 with left axis deviation and normal intervals. There is LVH. There is no pathologic ST elevation. No pathologic Q waves. No old EKG available for comparison this time. Attestation Statement - Attestation Attestation: I examined this patient and my medical decision-making was reviewed with the [employer]/PA/Advanced Practice Nurse/Resident Physician. I agree with the documented findings, disposition and treatment plan as described except to the extent set forth below.
[2016-11-08 20:45] LABS: Hematocrit 20.7 % (37.5-50.1); Hemoglobin 6.6 g/dL (12.9-16.9); Lymphocytes # 0.4 K/mcL (0.6-4.6); Lymphocytes % 12.8 %; Mean Corpuscular HGB Conc 31.9 g/dL (31.6-35.5); Mean Corpuscular Volume 87.7 fL (83.0-100.0); Mean Platelet Volume 9.6 fL (9.4-12.4); Monocytes # 0.5 K/mcL (0.0-1.3); Monocytes % 14.8 %; Neutrophils # 2.2 K/mcL (1.6-8.9); Platelet Count 114 K/mcL (140-400); Red Blood Count 2.36 M/mcL (4.19-5.50); Red Cell Distribution Width 16.5 % (11.5-14.5); Segmented Neutrophils % 72.4 %
[2016-11-08 21:06] LABS: Potassium 5.3 mEq/L (3.5-4.5)
[2016-11-08 21:48] LABS: Bilirubin,Urine Negative (Negative); Blood,Urine Trace (Negative); Clarity,Urine Cloudy (Clear); Color,Urine Yellow (Yellow); Glucose,Urine (UA) Normal (Normal); Ketones,Urine Negative (Negative); Leukocyte Esterase,Urine Moderate (Negative); Nitrite,Urine Positive (Negative); PH,Urine 6.5 pH Units (5.0-8.0); Protein,Urine Trace mg/dL (Neg-Trace); Specific Gravity,Urine 1.015 (1.010-1.025); Urobilinogen,Urine Normal (Normal)
[2016-11-08 21:51] LABS: Bacteria,Urine Many per hpf (None-Few); Hyaline Casts,Urine None Seen per lpf (None-Few); RBC,Urine 0-3 per hpf (0-3); Squamous Epithelial Cell,Urine Moderate per lpf (None-Few); WBC,Urine 30-50 per hpf (0-3)
[2016-11-08] MEDS: 0.9 % Sodium Chloride 1,000 ML IVC SCH (22:21)
--- NOTE | 2016-11-09 01:06 | Internal Med History&Physical ---
Date of Encounter: 11/09/16 Time of Encounter: 02:09 Assessment and Plan (1) Anemia Current visit: Yes Status: Acute 2 units ordered repeat CBC in AM Qualifiers: Anemia type: unspecified type Qualified Code(s): D64.9 - Anemia, unspecified (2) UTI (urinary tract infection) Current visit: Yes Status: Acute levaquin x14 days, renally dosed Qualifiers: Urinary tract infection type: site unspecified Hematuria presence: with hematuria Qualified Code(s): N39.0 - Urinary tract infection, site not specified; R31.9 - Hematuria, unspecified (3) Hyperkalemia Current visit: No Status: Acute kayexalate ordered repeat CMP in AM (4) Chronic kidney disease (CKD) Current visit: Yes Status: Chronic avoid nephrotoxins renally dose medications as needed Qualifiers: Chronic kidney disease stage: stage 3 (moderate) Qualified Code(s): N18.3 - Chronic kidney disease, stage 3 (moderate) (5) Hypertension Current visit: No Status: Chronic continue home medications Qualifiers: Hypertension type: essential hypertension Qualified Code(s): I10 - Essential (primary) hypertension (6) Diabetes mellitus Current visit: No Status: Chronic sliding scale Qualifiers: Diabetes mellitus type: type 2 Diabetes mellitus complication status: with kidney complications Diabetes mellitus complication detail: with nephropathy Diabetes mellitus predatory animal exterminator insulin use: without assisted use Qualified Code(s): E11.21 - Type 2 diabetes mellitus with diabetic nephropathy Internal Medicine - H&P: HPI Chief complaint: anemia, fever Admitted From: Direct Admit Plans for Post Hospital Care: Home History of present illness: Mr. Padilla is a 76 year old oncology patient found to be anemic on routine blood work today. He was sent to [facility] for blood transfusion, but he had a temperature of 102 at [facility], so he was transferred to [facility]. Urinalysis is highly suggestive of UTI. He has been admitted and will be treated for UTI and receive his blood transfusions. The patient denies any urinary symptoms. Review of systems is negative other than of vague fatigue and wobbliness, which she states is been going on for a few days. He did not know he had a fever until his temperature was taken at [facility]. His main concern at the time of my questioning is whether or not he will be able to go to his outpatient radiation oncology appointment tomorrow. Past Med Surg Social Fam HX - Past Medical History Medical history: arthritis, asthma, cancer (head/neck), COPD, coronary artery disease, diabetes, hyperlipidemia, hypertension, myocardial infarction, valvular heart disease (severe aortic stenosis), other Psychiatric history: no psych history - Past Surgical History Surgical History: angioplasty/stent, cataract, cholecystectomy, other ( tonsillectomy, sinus surgery, peg placement) - Social History Smoking Status: Former smoker Smokeless Tobacco Status: No Alcohol use: none Drug use: none - Family History Mother Living Status: Hx Family Cardiac Disorders: Yes Internal Medicine - H&P: Meds Metformin [Glucophage] 850 mg PO BID 06/05/15 [History] Finasteride [Proscar] 5 mg PO DAILY 06/06/15 [History] Lisinopril [Zestril] 20 mg PO BID 06/06/15 [History] Terazosin [Hytrin] 5 mg PO HS 06/06/15 [History] Atorvastatin Calcium [Lipitor] 20 mg PO HS 02/21/16 [History] Pantoprazole Sodium [Protonix] 40 mg PO DAILY 02/21/16 [History] Cholecalciferol (D-3) [Vitamin D] 1,000 unit PO DAILY 05/30/16 [History] Docusate [Colace] 100 mg PO BID PRN 05/30/16 [History] Fluticasone Propionate Nasal [Flonase] 2 spr NS DAILY PRN 05/30/16 [History] Latanoprost [Xalatan] 1 drop RIGHT EYE HS 05/30/16 [History] Metoprolol [Lopressor] 25 mg PO BID 08/29/16 [History] Magic Mouthwash [Magic Mouthwash BLM] 10 ml PO QID PRN #240 ml 09/12/16 [Rx] Ondansetron [Zofran] 4 mg PO Q8HR PRN #90 tablet 09/12/16 [Rx] Prochlorperazine Maleate [Compazine] 10 mg PO Q8HR PRN #90 tablet 09/12/16 [Rx] Promethazine [Phenergan] 25 mg PO Q8HR PRN #90 tablet 10/22/16 [Rx] HYDROcodone/Acet 7.5/325 mg [[place] 7.5-325 mg] 1 - 2 tab PO Q4H PRN #120 tablet 10/23/16 [Rx] Metoclopramide [Reglan] 10 mg PO QIDAC #120 tablet 10/30/16 [Rx] Polyethylene Glycol 3350 [MiraLAX] 17 gm PO PRN PRN 11/05/16 [History] Oxycodone HCl [Oxycodone HCl ER] 15 mg PO BID #60 tab.er.12h 11/07/16 [Rx] Allergies No Known Allergies Allergy (Verified 11/08/16 19:45) All Systems PM: A 10-system review of systems was performed and is negative for pertinent findings except as documented above in the HPI. - Constitutional Constitutional: fatigue, other (wobbly), no chills, no fever(s), no night sweats - EENT Eyes: no change in vision, no discharge, no pain, no photophobia Ears: no ear discharge, no ear pain, no tinnitus Nose, mouth and throat: no dysphagia, no nasal discharge, no neck pain, no sore throat - Cardiovascular Cardiovascular ROS IM: no chest pain, no diaphoresis, no dyspnea, no lightheadedness, no palpitations, no syncope - Respiratory Respiratory: hemoptysis (chronic), no cough, no dyspnea, no wheezing, no excessive phlegm production - Gastrointestinal Gastrointestinal: no abdominal pain, no change in bowel habits, no diarrhea, no hematemesis, no hematochezia, no melena, no nausea, no vomiting - Genitourinary Genitourinary ROS male: no difficulty urinating, no dysuria - Musculoskeletal Musculoskeletal ROS IM: no numbness, no tingling - Integumentary Integumentary IM: no rash, no unusual bruising - Neurological Neurological ROS: no confusion, no convulsions, no focal weakness, no numbness, no tingling, no tremor(s) - Hematologic/Lymphatic Hematologic/Lymphatic: no easy bruising - Constitutional Vitals: Temp Pulse Resp BP Pulse Ox 98.2 F 73 14 116/63 97 11/09/16 00:14 11/09/16 00:14 11/09/16 00:14 11/09/16 00:14 11/09/16 00:14 General appearance: Present: A&O X 3, no acute distress - Head Head exam: Present: atraumatic, normocephalic - Eye Eye exam: Present: PERRL, conjuntiva pink, sclera anicteric Pupils: Present: PERRL - Neck Neck exam general surgery: Present: supple, trachea midline. Absent: lymphadenopathy - Respiratory Respiratory exam: Present: CTAB. Absent: accessory muscle use, rales, rhonchi, wheezes - Cardiovascular Cardiovascular exam: Present: RRR, +S1, +S2. Absent: diastolic murmur, gallop, rubs, systolic murmur - GI/Abdominal GI/Abdominal exam: Present: normal bowel sounds, soft, no peritoneal signs. Absent: distended, tenderness Additional comments: PEG tube present - Extremities Exam Extremities exam: Present: warm. Absent: calf tenderness, cyanotic, pedal edema - Neurological Exam Neurological exam: Present: CN II-XII intact, oriented X3, no focal deficits. Absent: pronater drift, facial droop, speech deficit - Skin Skin exam: Present: dry, intact Internal Med - H&P Results - Labs CBC & Chem 7: 11/08/16 20:33 11/08/16 20:33
[2016-11-09] MEDS ORDERED: Dextrose Gel 15 GM PO PRN ×2 (02:30)
[2016-11-09] MEDS ORDERED: D5% in Water 1,000 ML IV PRN (02:30)
[2016-11-09] MEDS ORDERED: *HR* Dextrose 50 % in Water (Syg) 50 ML SYRINGE IVP PRN (02:30)
[2016-11-09] MEDS ORDERED: Acetaminophen 325 MG TABLET PO PRN (02:30)
[2016-11-09] MEDS ORDERED: Naloxone 0.4 MG/ML INJ IVP PRN (02:30)
[2016-11-09] MEDS ORDERED: Ondansetron ODT 4 MG TAB.RAPDIS SL PRN (02:30)
[2016-11-09] MEDS ORDERED: 0.9 % Sodium Chloride 250 ML ONE (02:37)
[2016-11-09] MEDS ORDERED: *HR* HYDROcodone/Acet 7.5/325 mg TABLET PO PRN ×2 (03:22→03:34)
[2016-11-09] MEDS ORDERED: Ondansetron ODT 4 MG TAB.RAPDIS PO PRN (03:22)
[2016-11-09] MEDS ORDERED: Fluticasone Propionate Nasal 50 MCG/SPRAY BOTTLE NS PRN (03:22)
[2016-11-09] MEDS ORDERED: Magic Mouthwash 10 ML UD Cup PO PRN (03:22)
[2016-11-09] MEDS: 0.9 % Sodium Chloride 1,000 ML IVC SCH ×3 (05:05→23:02)
[2016-11-09] MEDS: Levofloxacin 750 MG/150 ML 750 MG/150 ML BAG IVPB SCH (05:05)
[2016-11-09] MEDS ORDERED: *HR* Heparin 5,000 UNIT/ML VIAL SQ SCH (06:00)
[2016-11-09] MEDS ORDERED: Calcium Gluconate 1,000 MG in D5% in Water 100 ML IVPB ONE (06:01)
--- NOTE | 2016-11-09 06:03 | Event Note ---
Date of Encounter: 11/09/16 Time of Encounter: 06:02 Patient seen and examined with bilingual medical receptionist. Anemia requiring blood transfusion etiology of anemia is not very clear. He mentioned he is on Plavix. 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 We ask oncology service to see the patient. Patient has a UTI and will be treated with levofloxacin. His hyperkalemia will be treated and potassium will be rechecked. He had a bowel movement in the hospital nurse has not noticed any bleeding.
[2016-11-09 06:36] LABS: Hematocrit 26.7 % (37.5-50.1); Mean Corpuscular HGB Conc 32.2 g/dL (31.6-35.5); Mean Corpuscular Hemoglobin 28.5 pg (28.0-33.3); Mean Corpuscular Volume 88.4 fL (83.0-100.0); Mean Platelet Volume 9.8 fL (9.4-12.4); Platelet Count 112 K/mcL (140-400); Red Blood Count 3.02 M/mcL (4.19-5.50); Red Cell Distribution Width 16.1 % (11.5-14.5)
[2016-11-09] MEDS: Insulin LISPRO 300 UNITS/3 ML VIAL SQ SCH ×3 (06:42→18:34)
[2016-11-09 06:44] LABS: Hemoglobin 8.6 g/dL (12.9-16.9)
[2016-11-09 06:52] LABS: Albumin 2.4 g/dL (3.5-5.0); Albumin/Globulin Ratio 0.6 (1.1-2.2); Calcium 8.2 mg/dL (8.6-10.8); Globulin 3.9 g/dL (2.4-3.5); Magnesium 1.2 mg/dL (1.6-2.6); Phosphorous 2.6 mg/dL (2.3-4.7); Potassium 4.3 mEq/L (3.5-4.5); Total Protein 6.3 g/dL (6.0-8.3)
[2016-11-09 06:54] LABS: Bilirubin,Total 0.8 mg/dL (0.2-1.2)
[2016-11-09 07:14] LABS: Eosinophils # 0.1 K/mcL (0.0-0.6); Lymphocytes # 0.5 K/mcL (0.6-4.6); Monocytes # 0.1 K/mcL (0.0-1.3); Neutrophils # 2.2 K/mcL (1.6-8.9)
[2016-11-09 07:15] LABS: Platelet Estimate Slight Decrease (Normal)
[2016-11-09] MEDS ORDERED: NON-FORMULARY MEDICATION 1 EACH EACH (Oxycodone Hcl [Oxycodone Hcl Er] 15 MG) PO SCH (09:00)
[2016-11-09] MEDS ORDERED: levoFLOXacin 500 MG TABLET PO ONE (09:00)
[2016-11-09] MEDS ORDERED: Lisinopril 20 MG TABLET PO SCH (09:00)
[2016-11-09] MEDS: Finasteride 5 MG TABLET PO SCH (10:00)
[2016-11-09] MEDS: *HR* OxyCODONE ER (12 HR) 10 MG TABLET PO SCH ×2 (10:00→20:42)
--- NOTE | 2016-11-09 16:57 | Event Note ---
Date of Encounter: 11/09/16 Time of Encounter: 12:30 Patient seen and examined . On examination, patient resting in bed initially asleep. He denies pain at this time but endorses a sore throat with swallowing. He is asking for the mouthwash that he typically uses but does not know the name- his Magic mouthwash from home has been continued. I spoke to Dr. Lynhc earlier today of oncology. Chest x-ray negative. Blood counts improved status post 2 units of packed red blood cells. Current hemoglobin today 8.6. Unknown causation of anemia, patient denies hematochezia, will obtain Hemoccult. Urinary tract infection noted, we will continue levofloxacin. Hyperkalemia resolved. Patient is alert and oriented 3. He states he is able to take fluids and soft foods by mouth and everything else goes through his PEG tube. Nutrition brought on board for his PEG tube feedings. Appreciate oncology recommendations. ITS Impressions Chest X-Ray 11/08/16 20:08 IMPRESSION: No acute process. D/ / Alexandrea Bourne MD / Alexandrea Bourne MD Interpreting Provider: Alexandrea Bourne MD
--- NOTE | 2016-11-09 17:30 | Oncology Inp Consult Note ---
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 C2 10/22/16. On RT ARF--improving with hydration. Further cisplatin to be held due to toxicity Mucositis-fever s/p panculture and hospitalization for antibiotics. Feels improved. Pain under control Nutrition unable to take PO. Is seen by nutrition, planning overnight feeds tro g tube. Hx , CAD s/p stents on medical Rx. He has DM, HTN-hx renal insufficiency (). Has one radiation Rx next wk, will take that depending on his status. Plan d/w patient family in detail. - Data of Consult Requesting Physician: Annelise Quintanilla Primary Care Provider: PCP [place] - Consult Narrative Reason for consult: anemia, nasopharynx cancer History of present illness: CHIEF COMPLAINT: Sam Padilla is a 76 year old male who is being seen in my clinic for newly diagnosed squamous cell carcinoma head and neck cancer (nasopharynx) from [facility] HPI: 76yo male with medical history significant for diabetes mellitus, hypertension, coronary artery disease status post stents, emphysema, 06/16 had ERCP, s/p lap cholecystectomy 06/16, history of aortic stenosis --followed up with cardiology at [facility] with a long-standing history of tobacco use was noted to have right neck mass during his last cardiology visit in July 2016 he was classified CCC class I anginal MG and physical activity and class II symptoms with mild shortness of breath and slight limitation during physical activity. Patient has noted a right neck mass since March 2016 but was not able to undergo further workup at that time. Nasal stuffiness and pain which is described as bifrontal headaches he denies any ear pain is chronic pain issues and is taking hydrocodone with Tylenol. Patient was seen by ENT 12:15 2015 when he was noted to have a right neck mass 7 x 6 cm in size and needle biopsy was nondiagnostic of the neck mass. Patient underwent a direct laryngoscopy with biopsy, right tonsillectomy, nasopharyngoscopy with biopsy and excisional biopsy of the right neck mass on 2015 biopsies of the right pyriform sinus and right hypopharynx was unremarkable nasopharyngeal mucosa was focally positive for poorly differentiated squamous cell carcinoma right sinus cavity showed necrotic debris and fungal microorganisms tonsil was normal lymph node positive for malignancy consistent with poorly differentiated squamous cell carcinoma. Flow was neg for clonal abnormalities Patient has healed well in the right neck since surgery. He had a whole-body PET scan on 2016 that shows FDG activity in the clivus with SUV max of 10.5 and left sphenoid sinus increased activity in the right retromolar trigone area conglomerated lymph nodes in the right level IIb lymph node with SUV max of 18.2 and 2.4 cm inferior right level V lymph node with SUV max of 17.3 no distant metastatic disease was observed. 10/02/16 started C1 cisplatin with RT MRI brain concerning for uptake near foramen ovale-V cr nv Seen on 11/07/2016 with fatigue, mouth sores. Labs done showed abnormal cr s/p IVF. Further cisplatin was to be held Patient was to receive PRBC yesterday but had fever prior to strating transfusion of 102. He was referred to [facility] for further w/u due to active Rx and fever He feels improved since last night. Mouth soreness from mucositis. Pain meds helping him On antibiotics Past Med Surg Social Fam HX - Past Medical History Medical history: arthritis, asthma, cancer (head/neck), COPD, coronary artery disease, diabetes, hyperlipidemia, hypertension, myocardial infarction, valvular heart disease (severe aortic stenosis), other Psychiatric history: no psych history - Past Surgical History Surgical History: angioplasty/stent, cataract, cholecystectomy, other ( tonsillectomy, sinus surgery, peg placement) - Social History Smoking Status: Former smoker Smokeless Tobacco Status: No Alcohol use: none Drug use: none - Family History Mother Living Status: Hx Family Cardiac Disorders: Yes Medications and Allergies Metformin [Glucophage] 850 mg PO BID 06/05/15 [History] Finasteride [Proscar] 5 mg PO DAILY 06/06/15 [History] Lisinopril [Zestril] 20 mg PO BID 06/06/15 [History] Terazosin [Hytrin] 5 mg PO HS 06/06/15 [History] Atorvastatin Calcium [Lipitor] 20 mg PO HS 02/21/16 [History] Pantoprazole Sodium [Protonix] 40 mg PO DAILY 02/21/16 [History] Cholecalciferol (D-3) [Vitamin D] 1,000 unit PO DAILY 05/30/16 [History] Docusate [Colace] 100 mg PO BID PRN 05/30/16 [History] Fluticasone Propionate Nasal [Flonase] 2 spr NS DAILY PRN 05/30/16 [History] Latanoprost [Xalatan] 1 drop RIGHT EYE HS 05/30/16 [History] Metoprolol [Lopressor] 25 mg PO BID 08/29/16 [History] Magic Mouthwash [Magic Mouthwash BLM] 10 ml PO QID PRN #240 ml 09/12/16 [Rx] Ondansetron [Zofran] 4 mg PO Q8HR PRN #90 tablet 09/12/16 [Rx] Prochlorperazine Maleate [Compazine] 10 mg PO Q8HR PRN #90 tablet 09/12/16 [Rx] Promethazine [Phenergan] 25 mg PO Q8HR PRN #90 tablet 10/22/16 [Rx] HYDROcodone/Acet 7.5/325 mg [[place] 7.5-325 mg] 1 - 2 tab PO Q4H PRN #120 tablet 10/23/16 [Rx] Metoclopramide [Reglan] 10 mg PO QIDAC #120 tablet 10/30/16 [Rx] Polyethylene Glycol 3350 [MiraLAX] 17 gm PO PRN PRN 11/05/16 [History] Oxycodone HCl [Oxycodone HCl ER] 15 mg PO BID #60 tab.er.12h 11/07/16 [Rx] Allergies No Known Allergies Allergy (Verified 11/08/16 19:45) Review of systems: per HPI Oncology - Exam - Constitutional Vitals: Temp Pulse Resp BP Pulse Ox 98.2 F 72 16 140/66 98 11/09/16 15:22 11/09/16 15:22 11/09/16 15:22 11/09/16 15:22 11/09/16 15:22 Exam: GENERAL: Alert and oriented, well appearing. Mental Status: Affect appropriate for circumstances HEENT: Sclerae anicteric. + mucositis/ Skin: No rashes or petechiae. Bruising Cardiac: S1, S2 + Syst m Chest: Bilateral air entry, clear Lymph nodes: + cervical LN softer s/p excision, no supraclavicular, axillary adenopathy. Abdomen: Soft, non-tender; no organomegaly or masses palpable. Extremities: No edema. No calf swelling or tenderness. No joint deformity. Neurologic: Alert, cranial nerves II-XII intact; normal gait; no focal weakness Consult Discharge Plan - Plan [facility]errals: [facility] [Primary Care Provider] -
--- NOTE | 2016-11-09 18:04 | Electrocardiograph Report ---
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
[2016-11-10] MEDS: Insulin LISPRO 300 UNITS/3 ML VIAL SQ SCH ×4 (00:24→18:30)
[2016-11-10] MEDS: 0.9 % Sodium Chloride 1,000 ML IVC SCH ×5 (00:25→16:13)
[2016-11-10 05:11] LABS: Hemoglobin 8.2 g/dL (12.9-16.9); Red Cell Distribution Width 15.9 % (11.5-14.5)
[2016-11-10 05:12] LABS: Eosinophils % 1.1 %; Hematocrit 25.3 % (37.5-50.1); Immature Granulocytes % 0.5 % (0-4); Lymphocytes # 0.3 K/mcL (0.6-4.6); Lymphocytes % 13.9 %; Mean Corpuscular HGB Conc 32.4 g/dL (31.6-35.5); Mean Corpuscular Hemoglobin 28.6 pg (28.0-33.3); Mean Corpuscular Volume 88.2 fL (83.0-100.0); Mean Platelet Volume 9.7 fL (9.4-12.4); Monocytes # 0.3 K/mcL (0.0-1.3); Neutrophils # 1.3 K/mcL (1.6-8.9); Platelet Count 102 K/mcL (140-400); Red Blood Count 2.87 M/mcL (4.19-5.50); Segmented Neutrophils % 68.5 %
[2016-11-10 05:19] LABS: INR 1.5
[2016-11-10 05:21] LABS: Activated Partial Thrombo Time 27.5 Seconds (26.0-36.0)
[2016-11-10 05:27] LABS: Platelet Estimate Decreased (Normal); Poikilocytosis 1+ (Not Present)
[2016-11-10 05:28] LABS: Anisocytosis 1+ (Not Present); Ovalocytes 1+ (Not Present)
[2016-11-10 05:29] LABS: % Iron Saturation 20 % (20-55); Alanine Aminotransferase 19 Units/L (0-55); Albumin 2.3 g/dL (3.5-5.0); Albumin/Globulin Ratio 0.7 (1.1-2.2); Alkaline Phosphatase 39 Units/L (38-126); Aspartate Amino Transferase 23 Units/L (5-34); BUN/Creatinine Ratio 14 (6-26); Bilirubin,Direct 0.2 mg/dL (0.0-0.5); Bilirubin,Indirect 0.2 mg/dL (0.0-1.2); Bilirubin,Total 0.4 mg/dL (0.2-1.2); Blood Urea Nitrogen 18 mg/dL (8-26); Calcium 8.3 mg/dL (8.6-10.8); Carbon Dioxide 25 mEq/L (19-29); Chloride 108 mEq/L (98-109); Globulin 3.4 g/dL (2.4-3.5); Glucose 148 mg/dL (70-99); Iron 35 mcg/dL (65-175); Lipase 7 Units/L (8-78); Magnesium 1.2 mg/dL (1.6-2.6); Osmolality,Calculated 295 (280-300); Potassium 4.2 mEq/L (3.5-4.5); Sodium 140 mEq/L (136-145); Total Protein 5.7 g/dL (6.0-8.3); Transferrin 124 mg/dL (174-364); eGFR For African Americans > 60 (> 60); eGFR For Non-African Americans 54 (> 60)
[2016-11-10 05:50] LABS: Ferritin 155 ng/ml (22-275); Thyroid Stimulating Hormone 1.485 mcIU/mL (0.350-4.840)
[2016-11-10 06:03] LABS: Folate 8.3 ng/mL (7.0-31.4)
[2016-11-10] MEDS: Finasteride 5 MG TABLET PO SCH (07:50)
[2016-11-10] MEDS ORDERED: levoFLOXacin 250 MG TABLET PO SCH (09:00)
[2016-11-10] MEDS: *HR* OxyCODONE ER (12 HR) 10 MG TABLET PO SCH ×2 (09:21→21:12)
--- NOTE | 2016-11-10 19:18 | Internal Med Progress Note ---
Date of Encounter: 11/10/16 Time of Encounter: 12:10 - Assessment and plan (1) Anemia Current Visit: Yes Status: Acute Assessment and plan: stable. Qualifiers: Anemia type: unspecified type Qualified Code(s): D64.9 - Anemia, unspecified (2) UTI (urinary tract infection) Current Visit: Yes Status: Acute Assessment and plan: Continue Ceftriaxone await identification and sensitivity, ad adjust antibiotics if indicated. Qualifiers: Urinary tract infection type: site unspecified Hematuria presence: with hematuria Qualified Code(s): N39.0 - Urinary tract infection, site not specified; R31.9 - Hematuria, unspecified (3) Chronic kidney disease (CKD) Current Visit: Yes Status: Chronic Assessment and plan: Recovering from acute insult. Continue hydration. Qualifiers: Chronic kidney disease stage: stage 3 (moderate) Qualified Code(s): N18.3 - Chronic kidney disease, stage 3 (moderate) (4) Acute on chronic renal failure Current Visit: No Status: Acute Assessment and plan: IMPROVING. Cisplatin held due to toxicity. (5) Squamous cell carcinoma of nasopharynx Current Visit: No Status: Acute Assessment and plan: treatment as per oncologist, on-board. (6) Diabetes mellitus Current Visit: No Status: Chronic Assessment and plan: continue present care. Qualifiers: Diabetes mellitus type: type 2 Diabetes mellitus complication status: with kidney complications Diabetes mellitus complication detail: with nephropathy Diabetes mellitus usp insulin use: without usp use Qualified Code(s): E11.21 - Type 2 diabetes mellitus with diabetic nephropathy (7) Hypertension Current Visit: No Status: Chronic Assessment and plan: continue present care. Qualifiers: Hypertension type: essential hypertension Qualified Code(s): I10 - Essential (primary) hypertension (8) Hypomagnesemia Current Visit: No Status: Acute Assessment and plan: IV MgSO4 2G IVPB, RECHECK IN THE AM. - Time Spent With Patient 25 - 35 minutes - Subjective Interval history: Mr. Padilla is a 76 year old male with poorly differentiated squamous cell nasopharngeal carcinoma with right neck adenopathy, locally invasive without metastatic disease on PET SCAN. He is on radiation therapy and Ciplastin. He is admitted with anemia, fever and acute renal failure. Urine culture reports gram negative rods, identification and sensitivity is pending. He does report some fatigue, otherwise, he is feeling fine. Mucositis-fever s/p panculture and hospitalization for antibiotics. Feels improved. Pain under control Nutrition unable to take PO. Is seen by nutrition, planning overnight feeds tro g tube. Hx , CAD s/p stents on medical Rx. He has DM, HTN-hx renal insufficiency (). Has one radiation Rx next wk, will take that depending on his status. Plan d/w patient family in detail. - Constitutional Vitals: Temp Pulse Resp BP Pulse Ox 97.4 F L 79 16 148/69 97 11/10/16 15:30 11/10/16 15:30 11/10/16 15:30 11/10/16 15:30 11/10/16 15:30 General appearance: Present: A&O X 3, no acute distress Exam: Not in distress Mild palor, anicteric, afebrile, acyanoti Chest clear Heart: RRR, hs1/2 Abd: soft, non-tender, no masses. 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 Skin: no active skin lesion. Tube feeding on-going. Internal Medicine: Result - Labs CBC & Chem 7: 11/10/16 04:32 11/10/16 04:32 Labs: Short CBC 11/10/16 Range/Units 04:32 WBC 1.9 L (4.3-11.1) K/mcL Hgb 8.2 L (12.9-16.9) g/dL Hct 25.3 L (37.5-50.1) % Plt Count 102 L (140-400) K/mcL Neutrophils # 1.3 L (1.6-8.9) K/mcL BMP 11/10/16 04:32 Sodium 140 Potassium 4.2 Chloride 108 Carbon Dioxide 25 BUN 18 Creatinine 1.29 H Glucose 148 H Calcium 8.3 L Liver Function 11/10/16 Range/Units 04:32 Total Bilirubin 0.4 (0.2-1.2) mg/dL Direct Bilirubin 0.2 (0.0-0.5) mg/dL AST 23 (5-34) Units/L ALT 19 (0-55) Units/L Alkaline Phosphatase 39 (38-126) Units/L Albumin 2.3 L (3.5-5.0) g/dL - ABG Interpretation ABG results: PT/INR, D-dimer PT 16.0 Seconds (9.4-12.1) H 11/10/16 04:32 Consult Discharge Plan - Plan [facility]errals: [facility] [Primary Care Provider] -
[2016-11-10] MEDS ORDERED: Magnesium Sulfate 2 GM in D5% in Water 100 ML IVPB ONE (19:24)
[2016-11-11] MEDS: Insulin LISPRO 300 UNITS/3 ML VIAL SQ SCH ×2 (00:46→06:15)
[2016-11-11] MEDS: Levofloxacin 750 MG/150 ML 750 MG/150 ML BAG IVPB SCH (04:53)
[2016-11-11 07:32] VITALS: BP 141/65
[2016-11-11] MEDS: Finasteride 5 MG TABLET PO SCH (09:13)
[2016-11-11] MEDS: *HR* OxyCODONE ER (12 HR) 10 MG TABLET PO SCH (09:20)
--- NOTE | 2016-11-11 09:45 | Discharge Summary ---
Date of Encounter: 11/11/16 Time of Encounter: 09:20 - Discharge Diagnosis (1) Anemia Priority: Primary Status: Acute Qualifiers: Anemia type: unspecified type Qualified Code(s): D64.9 - Anemia, unspecified (2) UTI (urinary tract infection) Priority: Primary Status: Acute Qualifiers: Urinary tract infection type: site unspecified Hematuria presence: with hematuria Qualified Code(s): N39.0 - Urinary tract infection, site not specified; R31.9 - Hematuria, unspecified (3) Chronic kidney disease (CKD) Priority: Secondary Status: Chronic Qualifiers: Chronic kidney disease stage: stage 3 (moderate) Qualified Code(s): N18.3 - Chronic kidney disease, stage 3 (moderate) (4) Acute on chronic renal failure Priority: Primary Status: Acute (5) Squamous cell carcinoma of nasopharynx Priority: Secondary Status: Chronic (6) Diabetes mellitus Priority: Secondary Status: Chronic Qualifiers: Diabetes mellitus type: type 2 Diabetes mellitus complication status: with kidney complications Diabetes mellitus complication detail: with nephropathy Diabetes mellitus care home insulin use: without superintendent container terminal use Qualified Code(s): E11.21 - Type 2 diabetes mellitus with diabetic nephropathy (7) Hypertension Priority: Secondary Status: Chronic Qualifiers: Hypertension type: essential hypertension Qualified Code(s): I10 - Essential (primary) hypertension (8) Hypomagnesemia Priority: Primary Status: Acute (9) On tube feeding diet Priority: Secondary Status: Chronic - Discharge Medications Prescriptions: Hydrocortisone 1% CREAM [Cortaid] 1 appl TP BID PRN #1 bottle PRN Reason: Dry Skin Levofloxacin 750 mg PO Q2D #6 tablet Home Medications: Metformin [Glucophage] 850 mg PO BID 06/05/15 [History] Finasteride [Proscar] 5 mg PO DAILY 06/06/15 [History] Lisinopril [Zestril] 20 mg PO BID 06/06/15 [History] Terazosin [Hytrin] 5 mg PO HS 06/06/15 [History] Atorvastatin Calcium [Lipitor] 20 mg PO HS 02/21/16 [History] Pantoprazole Sodium [Protonix] 40 mg PO DAILY 02/21/16 [History] Cholecalciferol (D-3) [Vitamin D] 1,000 unit PO DAILY 05/30/16 [History] Docusate [Colace] 100 mg PO BID PRN 05/30/16 [History] Fluticasone Propionate Nasal [Flonase] 2 spr NS DAILY PRN 05/30/16 [History] Latanoprost [Xalatan] 1 drop RIGHT EYE HS 05/30/16 [History] Metoprolol [Lopressor] 25 mg PO BID 08/29/16 [History] Magic Mouthwash [Magic Mouthwash BLM] 10 ml PO QID PRN #240 ml 09/12/16 [Rx] Ondansetron [Zofran] 4 mg PO Q8HR PRN #90 tablet 09/12/16 [Rx] Prochlorperazine Maleate [Compazine] 10 mg PO Q8HR PRN #90 tablet 09/12/16 [Rx] Promethazine [Phenergan] 25 mg PO Q8HR PRN #90 tablet 10/22/16 [Rx] HYDROcodone/Acet 7.5/325 mg [[place] 7.5-325 mg] 1 - 2 tab PO Q4H PRN #120 tablet 10/23/16 [Rx] Metoclopramide [Reglan] 10 mg PO QIDAC #120 tablet 10/30/16 [Rx] Polyethylene Glycol 3350 [MiraLAX] 17 gm PO PRN PRN 11/05/16 [History] Oxycodone HCl [Oxycodone HCl ER] 15 mg PO BID #60 tab.er.12h 11/07/16 [Rx] Hydrocortisone 1% CREAM [Cortaid] 1 appl TP BID PRN #1 bottle 11/11/16 [Rx] Levofloxacin 750 mg PO Q2D #6 tablet 11/11/16 [Rx] Allergies/Adverse Reactions: Allergies No Known Allergies Allergy (Verified 11/08/16 19:45) Date of admission: 11/09/16 08:59 [facility] Discharging clinician: Kelechi Lopez Anticipated date of discharge: 11/11/16 - Patient Status Disposition: Home, Self-Care Condition: Good Overall status at discharge: patient is back to baseline - Discharge Instructions Follow Up With: [facility] [Primary Care Provider] - - Diet and Activity Activity: resume usual activities as tolerated Diet: other Interval History: Feels better, no complaints, express wish to go home. Hospital course: Mr. Padilla is a 76 year old male with poorly differentiated squamous cell nasopharngeal carcinoma with right neck adenopathy, locally invasive without metastatic disease on PET SCAN. He is on radiation therapy and Ciplastin. He is admitted with anemia, fever and acute renal failure. S/P transfusion of 2 units of PRBC. Urine culture reports gram negative rods, now identified as Citrobacter sensitive to Levaquin. No more fever. blood culture reported no bacteria growth. HH at discharge=8.2. He received 48 hours of IV Levaquin. Tube feeding continued due to dysphagia related to nasopharyngeal cancer. He is discharged to follow-up with PCP and electrical linesworker and radiation oncologist. Not in distress Mild palor, anicteric, afebrile, acyanotic. Erythema of the right side of the face related to irradiation. Chest clear Heart: RRR, hs1/2 Abd: soft, non-tender, no masses. PEG tube in place, Tube feeding on-going. 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 Skin: no active skin lesion. - Time Spent with Patient Total time spent providing and/or coordinating discharge services: Greater than 30 minutes Specific discharge activities: as tolerated. - Constitutional Vitals: Temp Pulse Resp BP Pulse Ox 98.0 F 73 15 141/65 98 11/11/16 07:31 11/11/16 07:31 11/11/16 07:31 11/11/16 07:31 11/11/16 07:31 General appearance: Present: A&O X 3, no acute distress
== END 2016-11-11 11:21 | disposition home or self-care (01) | DRG 690 ==
LOC: EMEROO 19:41 → 3BNU 19:41
PROVIDERS: ADMIT Hospitalist; ATTEND Nurse Practitioner Family

== ENCOUNTER 2017-02-04 15:19 | Inpatient (IN) ==
[2017-02-04] MEDS ORDERED: *HR* Heparin 5,000 UNIT/ML VIAL IVP ONE (15:31)
[2017-02-04] MEDS ORDERED: *HR* Heparin 5,000 UNIT/ML VIAL IVP PRN (15:31)
[2017-02-04] MEDS ORDERED: Nitroglycerin 25 MG/250 ML INFUS..BTL IVC SCH (15:45)
[2017-02-04] MEDS: Heparin 25,000 UNIT/500 ML D5W 25,000 UNIT/500 ML MLS IVC SCH (16:07)
[2017-02-04 16:39] LABS: Basophils % 0.1 %; Eosinophils % 0.1 %; Hematocrit 25.5 % (37.5-50.1); Hemoglobin 8.4 g/dL (12.9-16.9); Immature Granulocytes % 0.8 % (0-4); Lymphocytes # 0.7 K/mcL (0.6-4.6); Lymphocytes % 3.3 %; Mean Corpuscular HGB Conc 32.9 g/dL (31.6-35.5); Mean Corpuscular Hemoglobin 30.5 pg (28.0-33.3); Mean Corpuscular Volume 92.7 fL (83.0-100.0); Mean Platelet Volume 10.1 fL (9.4-12.4); Monocytes # 1.1 K/mcL (0.0-1.3); Monocytes % 5.4 %; Platelet Count 179 K/mcL (140-400); Red Blood Count 2.75 M/mcL (4.19-5.50); Red Cell Distribution Width 14.2 % (11.5-14.5); Segmented Neutrophils % 90.3 %
[2017-02-04 16:41] LABS: INR 1.3; Prothrombin Time 14.6 Seconds (9.4-12.1)
[2017-02-04 16:53] LABS: Calcium 9.6 mg/dL (8.6-10.8); Potassium 4.9 mEq/L (3.5-4.5)
[2017-02-04] MEDS ORDERED: Naloxone 0.4 MG/ML INJ IVP PRN (20:02)
--- NOTE | 2017-02-04 20:30 | Internal Med History&Physical ---
Date of Encounter: 02/04/17 Time of Encounter: 20:27 Assessment and Plan (1) NSTEMI (non-ST elevated myocardial infarction) Current visit: Yes Status: Acute Patient is now on heparin infusion and nitroglycerin infusion. Continue. Cardiology consultation for further advice and management - possible cardiac cath (Pt has CKD stage 3). Pt apparently is planned to have valve replacement at [facility] next month - if there are lesions requiring CABG, he could be referred to [facility] for combined procedure (2) Aortic stenosis Current visit: Yes Status: Chronic Pt follows up with cardiology at [facility] (? Due for valve replacement on 03/03/17 per pt) Qualifiers: Cardiac valve disease etiology: etiology unspecified Qualified Code(s): I35.0 - Nonrheumatic aortic (valve) stenosis (3) Diabetes mellitus Current visit: Yes Status: Chronic Start Sliding scale insulin Qualifiers: Diabetes mellitus type: type 2 Diabetes mellitus complication status: with unspecified complications Diabetes mellitus halfway insulin use: without halfway use Qualified Code(s): E11.8 - Type 2 diabetes mellitus with unspecified complications (4) Leucocytosis Current visit: Yes Status: Acute Cause is not known. Could be secondary to NSTEMI versus infectious process. Chest x-ray is negative. Check urinalysis/cultures. Obtain blood cultures. Monitor white cell count. No antibiotics at this time. Qualifiers: Leukocytosis type: unspecified Qualified Code(s): D72.829 - Elevated white blood cell count, unspecified (5) Nasopharyngeal carcinoma Current visit: Yes Status: Chronic 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 Follows with oncologist. Due for a PET scan soon. (6) Hypertension Current visit: Yes Status: Chronic Borderline hypotension at this time - possibly due to nitroglycerine. Hold antihypertensive for now and resume when he is off the nitroglycerine drip. Qualifiers: Hypertension type: essential hypertension Qualified Code(s): I10 - Essential (primary) hypertension (7) CKD (chronic kidney disease) stage 3, GFR 30-59 ml/min Current visit: Yes Status: Chronic Monitor renal function. Avoid nephrotoxics. Low dose IV fluids, for possible cardiac cath (8) COPD (chronic obstructive pulmonary disease) Current visit: Yes Status: Chronic Continue bronchodilators Qualifiers: COPD type: emphysema Emphysema type: unspecified Qualified Code(s): J43.9 - Emphysema, unspecified (9) G tube feedings Current visit: Yes Status: Chronic Consult nutrition team for PEG feeds. He takes oral feeds as well - mechanical soft diet and thin liquids per the patient (10) DVT prophylaxis Current visit: Yes Status: Acute Patient is on heparin drip at this time. Internal Medicine - H&P: HPI Chief complaint: Elevated troponin Admitted From: Emergency Dept Plans for Post Hospital Care: Home History of present illness: Mr. Padilla is a 76 year old male with past medical history significant for diabetes mellitus, hypertension, coronary artery disease status post stents, COPD, history of aortic stenosis --follows up with cardiology at [facility] (? 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 [facility], [facility], profuse sweating, nausea and vomiting. Evaluation revealed troponin of 1.45. Hence he is sent to [facility] for further management. He denies any chest pain, nausea, vomiting, hematemesis, shortness of breath, abdominal pain, dysuria, hematuria, melena, hematochezia. He reports that he had no control of urine, last night and this morning when he was vomiting. Past Med Surg Social Fam HX - Past Medical History Medical history: arthritis, asthma, cancer, COPD, coronary artery disease, diabetes, hyperlipidemia, hypertension, myocardial infarction, valvular heart disease, other Psychiatric history: no psych history - Past Surgical History Surgical History: angioplasty/stent, cataract, cholecystectomy, other ( tonsillectomy, sinus surgery, peg placement) - Social History Smoking Status: Former smoker Smokeless Tobacco Status: No Alcohol use: none Drug use: none - Family History Mother Living Status: Hx Family Cardiac Disorders: Yes Internal Medicine - H&P: Meds Finasteride [Proscar] 5 mg PO DAILY 06/06/15 [History] Terazosin [Hytrin] 5 mg PO HS 06/06/15 [History] Pantoprazole Sodium [Protonix] 40 mg PO DAILY 02/21/16 [History] Cholecalciferol (D-3) [Vitamin D] 2,000 unit PO DAILY 05/30/16 [History] Docusate [Colace] 100 mg PO BID 09/28/16 [History] Metoprolol [Lopressor] 25 mg PO BID 08/29/16 [History] Ondansetron [Zofran] 4 mg PO Q8HR PRN #90 tablet 09/12/16 [Rx] Prochlorperazine Maleate [Compazine] 10 mg PO Q8HR PRN #90 tablet 09/12/16 [Rx] Promethazine [Phenergan] 25 mg PO Q8HR PRN #90 tablet 10/22/16 [Rx] Magic Mouthwash [Magic Mouthwash BLM] 10 ml PO QID PRN #240 ml 11/29/16 [Rx] HYDROcodone/Acet 7.5/325 mg [[place] 7.5-325 mg] 1 tab PO Q4H PRN #120 tablet [Rx] Aspirin 81 mg PO DAILY 02/04/17 [History] Atorvastatin Calcium [Lipitor] 30 mg PO HS 02/04/17 [History] Gabapentin [Neurontin] 100 mg PO HS 02/04/17 [History] Lactose-Reduced Food/Fiber [Isosource 1.5 Percy Liquid] 250 ml GTUBE 6XD 02/04/17 [History] Mupirocin [Bactroban Oint] 1 appl TP TID 02/04/17 [History] NIFEdipine XL (24 HR) [Procardia XL] 60 mg PO DAILY 02/04/17 [History] Nitroglycerin [Nitrostat] 0.4 mg SL Q5M PRN 02/04/17 [History] Patient Taking Own Medication 3 each PO TID 02/04/17 [History] Polyethylene Glycol 3350 [MiraLAX Powder Bulk 17.9 Oz] 17 gm PO DAILY PRN [History] Propylene Glycol/Peg 400 [Systane 0.3-0.4% Eye Drops] 1 drop BOTH EYES TID 02/04 [History] glipiZIDE [Glucotrol] 2.5 mg PO BIDWM 02/04/17 [History] Allergies No Known Allergies Allergy (Verified 11/08/16 19:45) All Systems PM: A 10-system review of systems was performed and is negative for pertinent findings except as documented above in the HPI. - Constitutional Vitals: Temp Pulse Resp BP Pulse Ox 97.4 F L 67 18 104/64 96 02/04/17 20:14 02/04/17 20:14 02/04/17 20:14 02/04/17 20:14 02/04/17 20:14 Exam: General: Not in acute distress at the time of my evaluation HEENT: Oral mucosa is dry. No conjunctival palor or scleral icterus Neck: There is swelling on predominantly left side - possible lymphedema. There is scar on the right side of the neck Lungs:B/L basal crackles present Cardiac: Regular rate and rhythm. Systolic murmur suggestive of aortic stenosis Abdomen: Soft, non tender. Bowel sounds present. PEG tube in place Genitourinary: No mayes catheter Neurological: Alert and oriented. No gross localizing deficits Psych: Not aggressive or agitated Extremities: no significant leg edema Skin: No generalized rash Internal Med - H&P Results - Labs CBC & Chem 7: 02/04/17 15:52 02/04/17 15:52 - EKG Data -: EKG Interpreted by Myself EKG shows normal: sinus rhythm - EKG Data Prior EKG available for review: yes When compared to previous EKG: there is no significant change EKG comments: EKG personally reviewed by me shows sinus rhythm, ST depression with T-wave inversion in lead 1, 2, aVL, V5 and V6. No significant change compared to EKG from December 2016. 02/04/17 20:30 - Impressions ITS Impressions Chest X-Ray 02/04/17 15:31 IMPRESSION: Negative except for right basilar atelectasis D/ / Rai Cedeño MD / Rai Cedeño MD Interpreting Provider: Rai Cedeño MD
[2017-02-04] MEDS ORDERED: Dextrose Gel 15 GM PO PRN ×2 (20:36)
[2017-02-04] MEDS ORDERED: *HR* Dextrose 50 % in Water (Syg) 50 ML SYRINGE IVP PRN (20:36)
[2017-02-04] MEDS ORDERED: D5% in Water 1,000 ML IVC PRN (20:36)
[2017-02-04] MEDS ORDERED: Magic Mouthwash 10 ML UD Cup PO PRN (20:43)
[2017-02-04] MEDS ORDERED: Ipratropium/Albuterol Neb 3 ML IH PRN (20:45)
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
[2017-02-04] MEDS: 0.9 % Sodium Chloride 1,000 ML IVC SCH (22:33)
[2017-02-04] MEDS: PROPYLENE GLYCOL OP SCH (22:35)
[2017-02-04] MEDS: Gabapentin 100 MG CAPSULE PO SCH (22:35)
[2017-02-04] MEDS: Insulin LISPRO 300 UNITS/3 ML VIAL SQ SCH (22:35)
[2017-02-04] MEDS: PEG OP SCH (22:35)
[2017-02-04 23:09] LABS: Bilirubin,Urine Negative (Negative); Blood,Urine Negative (Negative); Clarity,Urine Clear (Clear); Color,Urine Yellow (Yellow); Glucose,Urine (UA) Normal (Normal); Ketones,Urine Negative (Negative); Leukocyte Esterase,Urine Negative (Negative); Nitrite,Urine Negative (Negative); Protein,Urine Trace mg/dL (Neg-Trace); Specific Gravity,Urine 1.019 (1.010-1.025); Urobilinogen,Urine Normal (Normal)
[2017-02-04 23:14] LABS: Bacteria,Urine None Seen per hpf (None-Few); Hyaline Casts,Urine None Seen per lpf (None-Few); Squamous Epithelial Cell,Urine Moderate per lpf (None-Few); WBC,Urine 0-3 per hpf (0-3)
[2017-02-05] MEDS: *HR* Heparin 5,000 UNIT/ML VIAL IVP PRN ×3 (00:13→13:24)
[2017-02-05] MEDS: GLYCERIN PO SCH ×2 (04:43→08:38)
[2017-02-05] MEDS: [UNRECOGNIZED DRUG - OTHER] PO SCH ×2 (04:43→08:38)
[2017-02-05 05:58] LABS: Basophils % 0.2 %; Eosinophils # 0.2 K/mcL (0.0-0.6); Eosinophils % 1.7 %; Hematocrit 24.9 % (37.5-50.1); Hemoglobin 7.9 g/dL (12.9-16.9); Immature Granulocytes % 0.6 % (0-4); Lymphocytes # 0.7 K/mcL (0.6-4.6); Lymphocytes % 5.9 %; Mean Corpuscular HGB Conc 31.7 g/dL (31.6-35.5); Mean Corpuscular Hemoglobin 29.6 pg (28.0-33.3); Mean Corpuscular Volume 93.3 fL (83.0-100.0); Mean Platelet Volume 10.6 fL (9.4-12.4); Monocytes # 0.8 K/mcL (0.0-1.3); Monocytes % 6.2 %; Neutrophils # 10.8 K/mcL (1.6-8.9); Platelet Count 166 K/mcL (140-400); Red Blood Count 2.67 M/mcL (4.19-5.50); Red Cell Distribution Width 14.3 % (11.5-14.5); Segmented Neutrophils % 85.4 %
[2017-02-05 06:13] LABS: Calcium 9.6 mg/dL (8.6-10.8); Potassium 4.1 mEq/L (3.5-4.5)
[2017-02-05] MEDS ORDERED: *HR* Morphine 2 MG/ML SYRINGE IVP ONE (08:29)
--- NOTE | 2017-02-05 08:34 | Internal Med Progress Note ---
<NathanFrancisca Ann - Last Filed: 02/05/17 08:31> Date of Encounter: 02/05/17 Time of Encounter: 08:32 - Assessment and plan (1) NSTEMI (non-ST elevated myocardial infarction) Current Visit: Yes Status: Acute Assessment and plan: pt with troponin elevation 1.88>1.61 continue heparin and nitro drip cardiology has been consulted for assessment and possible cath today NPO IVF supportive care (2) Aortic stenosis Current Visit: Yes Status: Chronic Assessment and plan: pt follows with [facility], was scheduled to have aortic valve replacement next month Qualifiers: Cardiac valve disease etiology: etiology unspecified Qualified Code(s): I35.0 - Nonrheumatic aortic (valve) stenosis (3) Diabetes mellitus Current Visit: Yes Status: Chronic Assessment and plan: NPO glucose 93 accuchecks with sliding scale Qualifiers: Diabetes mellitus type: type 2 Diabetes mellitus complication status: with unspecified complications Diabetes mellitus assistant terminal manager insulin use: without assistant terminal manager use Qualified Code(s): E11.8 - 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 Pt had elevated troponin levels and admitted for NSTEMI, started on heparin drip and nitro drip. Pt states chest pressure, nausea and vomiting have resolved, he still has some diaphresis. Pt states he feels much better this morning compared to when he presented last night. Cardiology has been consulted to see him this morning. - Constitutional Vitals: Temp Pulse Resp BP Pulse Ox 97.9 F 100 17 140/73 95 02/05/17 07:15 02/05/17 07:15 02/05/17 07:15 02/05/17 07:15 02/05/17 07:15 General appearance: Present: A&O X 3, no acute distress - Head Head exam: Present: atraumatic, normocephalic - Eye Eye exam: Present: PERRL, conjuntiva pink, sclera anicteric Pupils: Present: PERRL - Neck Neck exam general surgery: Present: supple, trachea midline. Absent: lymphadenopathy - Respiratory Respiratory exam: Present: CTAB. Absent: accessory muscle use, rales, rhonchi, wheezes - Cardiovascular Cardiovascular exam: Present: RRR, +S1, +S2, systolic murmur - GI/Abdominal GI/Abdominal exam: Present: normal bowel sounds, soft, no peritoneal signs. Absent: distended, tenderness - Extremities Exam Extremities exam: Present: warm, radial pulses palpable and symetrical. Absent : calf tenderness, cyanotic, pedal edema - Neurological Exam Neurological exam: Present: CN II-XII intact, oriented X3, no focal deficits. Absent: pronater drift, facial droop, speech deficit - Skin Skin exam: Present: diaphoretic, dry, intact Internal Medicine: Result - Labs CBC & Chem 7: 02/05/17 04:16 02/05/17 04:16 Labs: Short CBC 02/05/17 Range/Units 04:16 WBC 12.6 H (4.3-11.1) K/mcL Hgb 7.9 L (12.9-16.9) g/dL Hct 24.9 L (37.5-50.1) % Plt Count 166 (140-400) K/mcL Neutrophils # 10.8 H (1.6-8.9) K/mcL BMP 02/05/17 04:16 Sodium 139 Potassium 4.1 Chloride 102 Carbon Dioxide 26 BUN 46 H Creatinine 1.60 H Glucose 93 Calcium 9.6 Cardiac Enzymes 02/04/17 02/05/17 Range/Units 21:40 04:16 Troponin I 1.88 H* 1.69 H* (0-0.03) ng/mL Urine 02/04/17 Range/Units 22:40 Urine Color Yellow (Yellow) Urine Clarity Clear (Clear) Urine pH 6.0 (5.0-8.0) pH Units Ur Specific [place] 1.019 (1.010-1.025) Urine Protein Trace (Neg-Trace) mg/dL Urine Glucose (UA) Normal (Normal) mg/dL - ABG Interpretation ABG results: PT/INR, D-dimer PT 14.6 Seconds (9.4-12.1) H 02/04/17 15:52 Consult Discharge Plan - Plan [facility]: [facility] Care Provider[facility] - <Raul Mac - Last Filed: 02/05/17 18:23> Date of Encounter: 02/05/17 - Assessment and plan (1) NSTEMI (non-ST elevated myocardial infarction) Current Visit: Yes Status: Acute (2) Aortic stenosis Current Visit: Yes Status: Chronic Qualifiers: Cardiac valve disease etiology: etiology unspecified Qualified Code(s): I35.0 - Nonrheumatic aortic (valve) stenosis (3) CKD (chronic kidney disease) stage 3, GFR 30-59 ml/min Current Visit: Yes Status: Chronic (4) COPD (chronic obstructive pulmonary disease) Current Visit: Yes Status: Chronic Qualifiers: COPD type: emphysema Emphysema type: unspecified Qualified Code(s): J43.9 - Emphysema, unspecified (5) Diabetes mellitus Current Visit: No Status: Chronic Qualifiers: Diabetes mellitus type: type 2 Diabetes mellitus complication status: with kidney complications Diabetes mellitus complication detail: with nephropathy Diabetes mellitus mcfp insulin use: without assistant terminal manager use Qualified Code(s): E11.21 - Type 2 diabetes mellitus with diabetic nephropathy (6) CAD (coronary artery disease) Current Visit: No Status: Acute Qualifiers: Coronary Disease-Associated Artery/Lesion type: [place] artery [place] vs. transplanted heart: [place] heart Associated angina: without angina Qualified Code(s): I25.10 - Atherosclerotic heart disease of [place] coronary artery without angina pectoris (7) Hypertension Current Visit: No Status: Chronic Qualifiers: Hypertension type: essential hypertension Qualified Code(s): I10 - Essential (primary) hypertension - Constitutional Vitals: Temp Pulse Resp BP Pulse Ox 98.4 F 70 17 162/78 98 02/05/17 15:35 02/05/17 18:10 02/05/17 17:45 02/05/17 18:10 02/05/17 17:45 Internal Medicine: Result - Labs CBC & Chem 7: 02/05/17 04:16 02/05/17 04:16 Labs: Short CBC 02/05/17 Range/Units 04:16 WBC 12.6 H (4.3-11.1) K/mcL Hgb 7.9 L (12.9-16.9) g/dL Hct 24.9 L (37.5-50.1) % Plt Count 166 (140-400) K/mcL Neutrophils # 10.8 H (1.6-8.9) K/mcL BMP 02/05/17 04:16 Sodium 139 Potassium 4.1 Chloride 102 Carbon Dioxide 26 BUN 46 H Creatinine 1.60 H Glucose 93 Calcium 9.6 Cardiac Enzymes 02/04/17 02/05/17 Range/Units 21:40 04:16 Troponin I 1.88 H* 1.69 H* (0-0.03) ng/mL Urine 02/04/17 Range/Units 22:40 Urine Color Yellow (Yellow) Urine Clarity Clear (Clear) Urine pH 6.0 (5.0-8.0) pH Units Ur Specific [place] 1.019 (1.010-1.025) Urine Protein Trace (Neg-Trace) mg/dL Urine Glucose (UA) Normal (Normal) mg/dL - ABG Interpretation ABG results: PT/INR, D-dimer PT 14.6 Seconds (9.4-12.1) H 02/04/17 15:52 - Attending Attestation I examined this patient and my medical decision-making was reviewed with the Resident Physician on 02/05/17. I agree with the documented findings, disposition and treatment plan as described except to the extent set forth below. Mr. Padilla is currently admitted for acute NSTEMI. He is high risk due to potential for worsening cardiac status. Mr. Padilla had another episode of chest heaviness. He is on nitro/heparin. Cath today. No fever or chills. Exam Alert. Comfortable now. Heart reg No wheeze No edema I/P 1. Acute NSTEMI 2. Aortic stenosis 3. Diabetes Further diagnoses and plan as above.
[2017-02-05] MEDS: PROPYLENE GLYCOL OP SCH ×3 (08:38→19:55)
[2017-02-05] MEDS: Insulin LISPRO 300 UNITS/3 ML VIAL SQ SCH ×4 (08:38→19:56)
[2017-02-05] MEDS: PEG OP SCH ×3 (08:38→19:55)
[2017-02-05] MEDS: Cholecalciferol (D-3) 1,000 UNIT TABLET PO SCH (08:46)
[2017-02-05] MEDS: Finasteride 5 MG TABLET PO SCH (08:47)
[2017-02-05] MEDS: Aspirin 81 MG TAB.CHEW PO SCH (08:47)
--- NOTE | 2017-02-05 11:13 | Cardiology Consult Note ---
Date of Encounter: 02/05/17 Time of Encounter: 11:10 Assessment and Plan (1) NSTEMI (non-ST elevated myocardial infarction) Current Visit: Yes Status: Acute Troponins 1.45, 1.05, 1.88, 1.69. Presented with chest pain waking him from sleep associated with diaphoresis, nausea and vomiting. Currently chest pain free, on nitro gtt and heparin gtt. [facility] 02/21/2016: Left main normal. LAD ostial 30-40% stenosis, proximal 30-40% proximal edge in-stent restenosis, mid 40% stenosis, distal 30% stenosis. Circumflex mid 30% stenosis. OM1 70% stenosis. RCA normal C small vessel). Existing stenosis could have worsened. Known severe with plan for TAVR at [facility]. HGB 7.9--chronic anemia, near baseline with no evidence of active bleeding. Creatinine 1.60, also near his baseline. TTE 09/22/2016: LVEF 60-65%. Mild concentric LVH. Mild diastolic dysfunction. Heavily calcified aortic valve with reduced mobility. Mild aortic regurgitation. Probable severe aortic stenosis (mean gradient 37 mm record, peak velocity 4.06 m/s, dimensionless index 0.22). RVSP not well obtained. Recommend [facility]. R/B/A discussed. Pt agrees to proceed. [facility] today. ASA, Statin, start BB . (2) Chronic anemia Current Visit: Yes Status: Acute HGB 7.9 today--baseline low 8s, as low as 6s in the past. No evidence of active bleeding. Tolerating heparin gtt. (3) Severe aortic stenosis Current Visit: Yes Status: Chronic Known severe . TTE 09/22/2016: LVEF 60-65%. Mild concentric LVH. Mild diastolic dysfunction. Heavily calcified aortic valve with reduced mobility. Mild aortic regurgitation. Probable severe aortic stenosis (mean gradient 37 mm record, peak velocity 4.06 m/s, dimensionless index 0.22). Follows with [facility], planned to have TAVR. (4) CAD (coronary artery disease) Current Visit: No Status: Acute Hx of CAD and PCI. ASA, Statin, start BB. Qualifiers: Coronary Disease-Associated Artery/Lesion type: [place] artery [place] vs. transplanted heart: [place] heart Associated angina: without angina Qualified Code(s): I25.10 - Atherosclerotic heart disease of [place] coronary artery without angina pectoris (5) CKD (chronic kidney disease) stage 3, GFR 30-59 ml/min Current Visit: Yes Status: Chronic Currently near baseline. Discussion w patient/family: The assessment and plan as outlined above was discussed with the patient and/or family members who expressed understanding and agreement. All questions were answered. Thank you for involving us in the care of your patient. Please call with any questions. I will discuss all the above with Dr. Lantigua and make changes as necessary. History of Present Illness Consult date: 02/05/17 Requesting physician: Alen Armendariz Consult reason: NSTEMI Chief complaint: chest pain History of present illness: Mr. Padilla is a 76 year old male with hx of CAD, prior PCI to LAD, essential HTN , HLD, and severe aortic stenosis. Patient was evaluated at [facility] for possible aortic valve replacement + possible CABG vs. TAVR. 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 He has had surgical resection of neck mass and reports he has completed chemotherapy and radiation. Pt reports chest pain waking him from sleep last night, left sided pressure associated with significant diaphoresis, nausea and vomiting. He states nitro relieved the pain. [facility], [facility] 1.45 and [facility] to [facility]. Troponins 1.05, 1.88, 1.69. He is currently on nitro and heparin gtt. Reports saw [facility] 2 weeks ago and plan is for TAVR in the near future. Previous testing: TTE 09/22/2016: LVEF 60-65%. Mild concentric LVH. Mild diastolic dysfunction. Heavily calcified aortic valve with reduced mobility. Mild aortic regurgitation. Probable severe aortic stenosis (mean gradient 37 mm record, peak velocity 4.06 m/s, dimensionless index 0.22). RVSP not well obtained. Cardiac catheterization 02/21/2016: Left main normal. LAD ostial 30-40% stenosis , proximal 30-40% proximal edge in-stent restenosis, mid 40% stenosis, distal 30 % stenosis. Circumflex mid 30% stenosis. OM1 70% stenosis. RCA normal C small vessel). Past Med Surg Social Fam HX - Past Medical History Medical history: arthritis, asthma, cancer, COPD, coronary artery disease, diabetes, hyperlipidemia, hypertension, myocardial infarction, valvular heart disease, other Psychiatric history: no psych history - Past Surgical History Surgical History: angioplasty/stent, cataract, cholecystectomy, other - Social History Smoking Status: Former smoker Smokeless Tobacco Status: No Alcohol use: none Drug use: none - Family History Mother Living Status: Hx Family Cardiac Disorders: Yes Hx Family Respiratory Disorders: No Hx Family Cancer: No Hx Family GI Disorders: No Hx Family Genitourinary Disorders: No Hx Family Endocrine Disorder: No Hx Family Musculoskeletal Disorders: No Hx Family Neuromuscular Disorders: No Hx Family Neurologic Disorders: No Hx Family HEENT Disorders: No Hx Family Autoimmune Disorders: No Hx Family Reproductive Disorders: No Hx Family Psychosocial Disorders: No Hx Family Medical Disorders: No Medications and Allergies Finasteride [Proscar] 5 mg PO DAILY 06/06/15 [History] Terazosin [Hytrin] 5 mg PO HS 06/06/15 [History] Pantoprazole Sodium [Protonix] 40 mg PO DAILY 02/21/16 [History] Cholecalciferol (D-3) [Vitamin D] 2,000 unit PO DAILY 05/30/16 [History] Docusate [Colace] 100 mg PO BID 05/30/16 [History] Metoprolol [Lopressor] 25 mg PO BID 08/29/16 [History] Ondansetron [Zofran] 4 mg PO Q8HR PRN #90 tablet 09/12/16 [Rx] Prochlorperazine Maleate [Compazine] 10 mg PO Q8HR PRN #90 tablet 09/12/16 [Rx] Promethazine [Phenergan] 25 mg PO Q8HR PRN #90 tablet 10/22/16 [Rx] Magic Mouthwash [Magic Mouthwash BLM] 10 ml PO QID PRN #240 ml 11/29/16 [Rx] HYDROcodone/Acet 7.5/325 mg [[place] 7.5-325 mg] 1 tab PO Q4H PRN #120 tablet [Rx] Aspirin 81 mg PO DAILY 02/04/17 [History] Atorvastatin Calcium [Lipitor] 30 mg PO HS 02/04/17 [History] Gabapentin [Neurontin] 100 mg PO HS 02/04/17 [History] Lactose-Reduced Food/Fiber [Isosource 1.5 [place] Liquid] 250 ml GTUBE 6XD 02/04/17 [History] Mupirocin [Bactroban Oint] 1 appl TP TID 02/04/17 [History] NIFEdipine XL (24 HR) [Procardia XL] 60 mg PO DAILY 02/04/17 [History] Nitroglycerin [Nitrostat] 0.4 mg SL Q5M PRN 02/04/17 [History] Patient Taking Own Medication 3 each PO TID 02/04/17 [History] Polyethylene Glycol 3350 [MiraLAX Powder Bulk 17.9 Oz] 17 gm PO DAILY PRN [History] Propylene Glycol/Peg 400 [Systane 0.3-0.4% Eye Drops] 1 drop BOTH EYES TID 02/04 [History] glipiZIDE [Glucotrol] 2.5 mg PO BIDWM 02/04/17 [History] Allergies No Known Allergies Allergy (Verified 11/08/16 19:45) All Systems Review: A 10-system review of systems was performed and is negative for pertinent findings except as documented above in the HPI. - Cardiovascular Cardiovascular: as per HPI, chest pain at rest, chest pain with exertion, diaphoresis - Gastrointestinal Gastrointestinal: nausea Physical Examination Vital Signs, Last 4 Hours Temp Pulse Resp BP Pulse Ox 02/05/17 07:15 97.9 F 100 17 140/73 95 Vital Signs Temp Pulse Resp BP Pulse Ox 02/05/17 07:15 97.9 F 100 17 140/73 95 02/05/17 04:00 98.2 F 79 20 113/73 96 02/05/17 00:55 96 02/04/17 20:20 96 02/04/17 20:14 97.4 F L 67 18 104/64 96 02/04/17 18:33 14 127/66 02/04/17 17:16 77 14 111/69 97 02/04/17 15:53 94 02/04/17 15:22 98.9 F 75 14 112/68 97 Intake and Output 02/04/17 02/05/17 02/05/17 23:59 07:59 15:59 Intake Total 0 / 0 232 / 232 Output Total 500 / 500 500 / 500 Balance -500 / -500 -268 / -268 Intake: IV Fluids 232 / 232 Heparin 25,000 UNIT/500 232 / 232 ML D5W 25,000 unit In 500 ml @ 11.9 UNIT/KG/HR 19. 864 mls/hr IVC .Q24H [facility] Rx#:[id number] Oral 0 / 0 0 / 0 Output: Urine 500 / 500 500 / 500 Other: Meal Dinner NPO Percent of Meal Consumed 100% Weight 82.6 kg 82.6 kg Blood Glucose* 140 141 Patient Weight 02/05/17 23:59 Weight 82.6 kg General: Conversant, No Apparent Distress HEENT: Atraumatic, Normocephaly, Mucus Membranes Moist Neck: No JVD, Normal carotid pulses Cardiac: Reg Rate and Rhythm, Normal S1 and S2, No Murmur Lungs: Other (rhonchi) Neuro: Alert and responsive, No focal deficits noted Abdomen: Soft, Non-Tender Skin: No rashes noted on visualized skin Musculoskeletal: No Chest Wall Tenderness Extremities: No Clubbing, No Cyanosis, No Edema, Normal Pulses Results 02/05/17 04:16 02/05/17 04:16 Lab Results 02/04/17 02/04/17 02/05/17 21:40 22:11 04:16 WBC Hgb Hct Plt Count APTT 50.8 H D Sodium Potassium Chloride Carbon Dioxide BUN Creatinine Glucose Calcium Troponin I 1.88 H* 1.69 H* B-Natriuretic Peptide 02/05/17 02/05/17 02/05/17 04:16 04:16 04:16 WBC 12.6 H Hgb 7.9 L Hct 24.9 L Plt Count 166 APTT Sodium 139 Potassium 4.1 Chloride 102 Carbon Dioxide 26 BUN 46 H Creatinine 1.60 H Glucose 93 Calcium 9.6 Troponin I B-Natriuretic Peptide 355 H 02/05/17 05:46 WBC Hgb Hct Plt Count APTT 45.7 H Sodium Potassium Chloride Carbon Dioxide BUN Creatinine Glucose Calcium Troponin I B-Natriuretic Peptide Short CBC 02/05/17 02/04/17 Range/Units 04:16 15:52 WBC 12.6 H 20.0 H (4.3-11.1) K/mcL Hgb 7.9 L 8.4 L (12.9-16.9) g/dL Hct 24.9 L 25.5 L (37.5-50.1) % Plt Count 166 179 (140-400) K/mcL Neutrophils # 10.8 H 18.0 H (1.6-8.9) K/mcL BMP 02/05/17 02/04/17 Range/Units 04:16 15:52 Sodium 139 136 (136-145) mEq/L Potassium 4.1 4.9 H (3.5-4.5) mEq/L Chloride 102 102 (98-109) mEq/L Carbon Dioxide 26 25 (19-29) mEq/L BUN 46 H 45 H (8-26) mg/dL Creatinine 1.60 H 1.65 H (0.72-1.25) mg/dL Glucose 93 176 H (70-99) mg/dL Calcium 9.6 9.6 (8.6-10.8) mg/dL Cardiac Enzymes 02/05/17 02/04/17 02/04/17 Range/Units 04:16 21:40 15:52 Troponin I 1.69 H* 1.88 H* 1.05 H* (0-0.03) ng/mL Urine 02/04/17 Range/Units 22:40 Urine Color Yellow (Yellow) Urine Clarity Clear (Clear) Urine pH 6.0 (5.0-8.0) pH Units Ur Specific [place] 1.019 (1.010-1.025) Urine Protein Trace (Neg-Trace) mg/dL Urine Glucose (UA) Normal (Normal) mg/dL Impressions Chest X-Ray 02/04/17 15:31 IMPRESSION: Negative except for right basilar atelectasis D/ / Rai Cedeño MD / Rai Cedeño MD Interpreting Provider: Rai Cedeño MD Active Medications Acetaminophen/Hydrocodone Bitart ([place] 7.5-325 Mg) 1 tab PO Q4H PRN PRN Reason: Pain Stop: 08/06/17 20:44 Albuterol/Ipratropium (Duoneb) 3 ml IH [id number] PRN; Protocol PRN Reason: Shortness Of Breath/Wheezing Stop: 08/06/17 20:46 Aspirin (Aspirin) 81 mg PO DAILY [facility] Stop: 08/07/17 09:01 Last Admin: 02/05/17 08:47 Dose: 81 mg Atorvastatin Calcium (Lipitor) 30 mg PO HS [facility] Stop: 08/06/17 21:01 Last Admin: 02/04/17 22:34 Dose: 30 mg Dextrose/Water (Dextrose 50% (Syg)) 25 ml IVP AD PRN PRN Reason: Hypoglycemia Stop: 08/06/17 20:37 Docusate Sodium (Colace) 100 mg PO BID [facility] PRN Reason: Protocol Stop: 08/06/17 21:01 Last Admin: 02/05/17 08:47 Dose: 100 mg Finasteride (Proscar) 5 mg PO DAILY [facility] PRN Reason: Protocol Stop: 08/07/17 09:01 Last Admin: 02/05/17 08:47 Dose: 5 mg Gabapentin (Neurontin) 100 mg PO HS [facility] Stop: 08/06/17 21:01 Last Admin: 02/04/17 22:35 Dose: 100 mg Glucagon (Glucagen) 1 mg IM ONCE PRN PRN Reason: Hypoglycemia Stop: 08/06/17 20:37 Glucose (Gluctose) 15 gm PO ONCE PRN PRN Reason: Hypoglycemia Stop: 08/06/17 20:37 Glucose (Gluctose) 30 gm PO ONCE PRN PRN Reason: Hypoglycemia Stop: 08/06/17 20:37 Heparin Sodium (Porcine) (Heparin) 4,000 unit IVP Q6HR PRN PRN Reason: SEE COMMENTS Stop: 08/06/17 15:32 Heparin Sodium (Porcine) (Heparin) 2,000 unit IVP Q6H PRN PRN Reason: SEE COMMENTS Stop: 08/06/17 15:32 Last Admin: 02/05/17 06:39 Dose: 2,000 unit Heparin Sodium/Dextrose (Heparin 25,000 Unit/500 Ml D5w) 25,000 unit in 500 mls @ 19.864 mls/hr IVC .Q24H [facility]; 11.9 UNIT/KG/HR PRN Reason: Protocol Stop: 08/06/17 15:46 Last Titration: 02/05/17 06:22 Dose: 15.27 unit/kg/hr, 25.5 mls/hr Nitroglycerin (Nitroglycerin) 25 mg in 250 mls @ 3 mls/hr IVC .Q24H [facility] PRN Reason: 5 MCG/MIN Stop: 08/06/17 15:46 Last Admin: 02/04/17 16:08 Dose: 5 mcg/min, 3 mls/hr Dextrose (Dextrose 5%) 1,000 mls @ 100 mls/hr IVC .Q10H PRN PRN Reason: HYPOGLYCEMIA Stop: 08/06/17 20:37 Sodium Chloride (0.9 % Sodium Chloride) 1,000 mls @ 30 mls/hr IVC .Q24H [facility] Stop: 08/06/17 20:46 Last Admin: 02/04/17 22:33 Dose: 30 mls/hr Insulin Human Lispro (Humalog) 0 units SQ HS [facility] PRN Reason: Protocol Stop: 08/06/17 21:01 Last Admin: 02/04/17 22:35 Dose: Not Given Insulin Human Lispro (Humalog) 0 units SQ TIDAC [facility] PRN Reason: Protocol Stop: 08/07/17 07:31 Last Admin: 02/05/17 08:38 Dose: Not Given Multi-Ingredient Mouthwash/Gargle (Magic Mouthwash) 10 ml PO QID PRN PRN Reason: Pain Naloxone HCl (Narcan) 0.4 mg IVP Q2MIN PRN PRN Reason: Opioid Reversal Stop: 08/06/17 20:03 Omeprazole (Prilosec) 20 mg PO DAILY [facility] Stop: 08/07/17 09:01 Last Admin: 02/05/17 08:47 Dose: 20 mg Pharmacy Profile Note (Patient Taking Own Medication) 3 each PO TID [facility] Stop: 08/06/17 21:01 Last Admin: 02/05/17 08:38 Dose: Not Given Pharmacy Profile Note (Patient Taking Own Medication) 0 each OP TID [facility] Stop: 08/06/17 21:01 Last Admin: 02/05/17 08:38 Dose: Not Given Terazosin HCl (Hytrin) 5 mg PO HS [facility] Stop: 08/06/17 21:01 Last Admin: 02/04/17 22:35 Dose: 5 mg Vitamin D (Vitamin D) 2,000 unit PO DAILY [facility] Stop: 08/07/17 09:01 Last Admin: 02/05/17 08:46 Dose: 2,000 unit - Imaging and Cardiology Echo: report reviewed Cardiac cath: report reviewed - EKG Interpretation EKG results cardiology: personally reviewed (SR, diffuse flattening/depression, no significant change from prior), other (24 hour tele AVG HR 80, no significant pauses or arrhythmias.) Consult Discharge Plan - Plan [facility]Primary Care Provider[facility] -
[2017-02-05] MEDS: Heparin 25,000 UNIT/500 ML D5W 25,000 UNIT/500 ML MLS IVC SCH (11:57)
[2017-02-05] MEDS ORDERED: 0.9 % Sodium Chloride 1,000 ML ONE ×2 (14:00→15:01)
[2017-02-05] MEDS ORDERED: Nitroglycerin 1,000 MCG/10 ML VIAL IV ONE (14:00)
[2017-02-05] MEDS ORDERED: Heparin 1,000 UNITS/500 mL NS 500 ML ONE (14:00)
[2017-02-05] MEDS ORDERED: *HR* Heparin 10,000 UNIT/10 ML VIAL ONE (14:00)
--- NOTE | 2017-02-05 14:21 | Pre-Sedation Evaluation ---
Pre-sedation evaluation - Pre-sedation checklist Date of procedure: 02/05/17 Procedure: Heart cath Recent Vitals: Last Vital Signs Temp 98.2 F 02/05/17 11:51 Pulse 82 02/05/17 11:51 Resp 16 02/05/17 11:51 BP 124/62 02/05/17 11:51 Pulse Ox 92 02/05/17 11:51 H&P (including ROS) documented in medical record: Yes Previous reaction to sedatives/anesthetics: No Dietary Status: NPO after Midnight Airway Assessment: Patient can open mouth completely, TMJ function normal, Micrognathia (under-bite, receding chin) absent, Neck with adequate range of motion Dentition: dentures removed Possible difficult airway: Yes ASA Classification *see protocol: CLASS II-Mild systemic disease Plan of Care: Pt appropriate candidate for procedure/moderate/conscious sedation , Risks/benefits of procedure/sedation discussed w/ patient/family
[2017-02-05] MEDS ORDERED: *HR* FentaNYL (PF) 100 MCG/2 ML VIAL ONE (14:28)
[2017-02-05] MEDS ORDERED: *HR* Midazolam HCl 2 MG/2 ML VIAL ONE (14:28)
[2017-02-05] MEDS ORDERED: *HR* Bivalirudin 250 MG VIAL IVC ONE (14:43)
[2017-02-05] MEDS ORDERED: *HR* Ticagrelor 90 MG TABLET ONE (15:02)
[2017-02-05] MEDS ORDERED: Nitroglycerin 0.4 MG TAB.SUBL SL PRN (15:05)
[2017-02-05] MEDS ORDERED: 0.9 % Sodium Chloride 1,000 ML IVC SCH (15:15)
--- NOTE | 2017-02-05 15:17 | Invasive Diagnostic Lab Proc ---
Name: Sam Padilla Date of Study: 02/05/2017 Date: 1940 Ht: 68.9in Medical Record#: [id number] Age: 76 Wt: 182.10lb Gender: Male BSA: 1.98 Order #: [id number] BMI: 26.97 Physicians Procedure Physician: Ana Winchester MD, [facility] Referring MD: Referring MD: Staff Name Position Time In Manan Cruz RN Monitor 02:20 PM Ally Thacker RN Foreign Clerk 02:20 PM Jes Prieto RT (R) Scrub 02:20 PM Indications Indication Non-Stemi Procedures Performed Procedure L HRT ARTERY/VENTRICLE ANGIO PRQ CARD BM STENT W/ANGIO 1 VSL Pre-Procedure Checklist Informed consent is complete signed and on chart. H\\T\\P is on chart. ID band is on and ID verified with patient. Patient NPO for procedure The procedure was described for the patient and questions were answered. Blood Pressure: 140/73 ECG is on chart. Rhythm: NSR Plan of Care Patient will tolerate the procedure without complications. Adequate level of comfort will be maintained. Hemodynamics will remain stable Patient will recover from procedure without complications. Respiratory function will be maintained. Cardiac rhythm will remain stable. Patient temperature will be maintained. Patient and/or family have verbalized understanding of the procedure. Patient Education Chief Complaint/Reason for Test: Cardiac Cath Developmental Category: Geriatric (65+ years) Developmentally Appropriate for Age: Yes Learning Barriers: None Education Needs: Procedure Education Method: Verbal Information Taught: Cardiac Cath Educational Evaluation: Able to repeat information Intravenous Access Time IV Size Location DC'd Fluid/Drip Rate Units RN 02:03 PM 20g 1 09/05" Patent On Arrival Rt Wrist 0.9NaCl 25 ml/hr Manan Cruz RN Allergies No Known Allergies Vital Signs Time BP (mmHg) HR (bpm) O2 Sat. RR (bpm) LOC 02:03 PM 140 / 73 100 95 % 17 5 = Fully awake and oriented or at pre-proc level 02:41 PM / % 4 = Oriented but drowsy 02:41 PM / % 4 = Oriented but drowsy 02:29 PM 130 / 65 70 100 % 20 02:34 PM 116 / 56 72 93 % 37 02:39 PM 109 / 55 73 91 % 18 02:44 PM 110 / 57 72 95 % 16 02:49 PM 108 / 59 74 94 % 16 02:54 PM 106 / 57 75 92 % 18 02:59 PM 87 / 52 79 90 % 03:04 PM 107 / 64 77 89 % 33 Procedural Medications Time Medication Dose Units Method Given By 02:21 PM Oxygen 2 L/min nasal cannula Ally Thacker RN 02:31 PM Versed 2 mg Intravenous Ally Thacker RN 02:31 PM Fentanyl 50 mcg Intravenous Ally Thacker RN 02:34 PM Lidocaine 2% 10 ml Subcutaneous Ana Winchester MD, FACC 02:37 PM Oxygen 4 L/min nasal cannula Ally Thacker RN 02:44 PM Angiomax 0.75mg/kg bolus: 13 ml Intravenous Ally Thacker RN 02:47 PM Angiomax 1.75mg/kg/hr: 30 ml/hr Intravenous Ally Thacker RN 02:57 PM Nitroglycerin 200 mcg Intracoronary Ana Winchester MD, FACC 02:59 PM Brilinta 180 mg Orally - crushed Ally Thacker RN ASA Classification: CLASS II- Mild systemic disease (i.e. well-controlled diabetes, hypertension, asthma, cigarette smoking) Joanne Score Preprocedure Postprocedure Activity 2- Moves 4 extremities sustained head lift Activity 2- Moves 4 extremities sustained head lift Circulation 2- SBP +/= 20 points of pre-anesthetic level Circulation 2- SBP +/= 20 points of pre-anesthetic level Consciousness 2- Awake and alert oriented x 3 Consciousness 2- Awake and alert oriented x 3 O2 Saturation 2- Able to maintain O2 satruation of 92% on room air O2 Saturation 2- Able to maintain O2 satruation of 92% on room air Respiratory 2- Able to deep breathe and cough well Respiratory 2- Able to deep breathe and cough well Total Score 10 Total Score 10 Contrast Agent: Isovue Diagnostic Contrast: 228 ml Total Contrast: 228 ml Fluoro Dose: 882 mGy Procedure Log Time Note Enter By 02:20 PM Pt arrived to pathology laboratory director 2 at 14:20 velma 02:20 PM Manan Cruz RN Position: Monitor Time in: 14:20 velma 02:20 PM Ally Thacker RN Position: Foreign Clerk Time in: 14:20 velma 02:20 PM Jes Prieto RT (R) Position: Scrub Time in: 14:20 velma 02:20 PM Patient charges- Angio tray pack, Navilyst 3mm J, Pulse Oximetry and ACIST tubing and transducer [facility] : PM Hair removed from procedure site in procedure lab using clippers. Bilateral groin prepped with Chloraprep by Ally Thacker RN, safety strap applied then patient was draped. Skin intact. [facility] 02: PM Physician arrived 14:21 [facility] : PM ASA Class CLASS II- Mild systemic disease (i.e. well-controlled diabetes, hypertension, asthma, cigarette smoking) [facility] : PM Meet and greet completed [facility] : PM Sign in performed according to hospital policy. [facility] 02: PM Procedure start 14: [facility] : PM CathStat : PM Case Start : PM Time: 14: Oxygen on at 2 L/min per nasal cannula by Ally Thacker RN [facility] 02:28 PM Vitals capture started with the following parameters, Patient=Adult, Interval=5 min, Initial Yjnkgqlj=357 mmHg, Deflation Rate=5 mmHg, Cuff placed on Right Arm 02:28 PM Recorded ECG: HR=70 Condition=Condition 1 02:29 PM HR=70 bpm, LBJP=986/65 mmhg, NhV6=538.0 %, Resp=20 B/min, Comment=sr 02:29 PM OG flushed and patent, + auscultation over gastric area with 20ml air csmith 02:30 PM Pressure channel 1 zero failed. 02:30 PM Pressure channel 1 zeroed. 02:31 PM Time: 14:31 Versed 2 mg Intravenous Given by Ally Thacker RN csmith 02:31 PM Time: 14:31 Fentanyl 50 mcg Intravenous Given by Ally Thacker RN csmith 02:32 PM Time out performed according to hospital policy csmith 02:34 PM HR=72 bpm, NHRM=889/56 mmhg, SpO2=93.0 %, Resp=37 B/min, Comment=nsr 02:34 PM Time: 14:34 10 ml Lidocaine 2% to right groin Subcutaneous Given by Ana Winchester MD, [facility] csmith 02:34 PM Access obtained by percutaneous puncture. 5Fr 10cm Terumo Custer sheath placed in right Femoral artery. [id number] csmith 02:35 PM 5Fr FL 4 catheter inserted over the wire [facility] csmith 02:35 PM 0.035 145cm Navilyst 3mmJ wire [id number] csmith 02:35 PM LCA angiography performed in multiple views. csmith 02:35 PM Recorded Pressure: Ao, HR=71, Condition=Condition 1 (Aorta) Ao 104/64/81 02:37 PM Time: 14:37 Oxygen on at 4 L/min per nasal cannula by Ally Thacker RN csmith 02:39 PM Catheter removed csmith 02:39 PM 5Fr FR 4 catheter inserted over the wire DN csmith 02:39 PM HR=73 bpm, NFFW=846/55 mmhg, SpO2=91.0 %, Resp=18 B/min, Comment=nsr 02:40 PM RCA angiography performed in [place]. csmith 02:40 PM Coronary Dominance: Left csmith 02:41 PM Time: 14:41 Patient comfortable and pain free: Yes csmith 02:41 PM Time: 14:41LOC: 4 = Oriented but drowsy csmith 02:41 PM Inflation device was opened. csmith 02:42 PM Sheath exchanged for a 6 Fr 11 cm Cordis Mari sheath [id number] csmith 02:42 PM Inflation device was opened. csmith 02:44 PM HR=72 bpm, QGPB=854/57 mmhg, SpO2=95.0 %, Resp=16 B/min, Comment=nsr 02:44 PM Lesion found in 2nd Marginal. Pre Stenosis: 99 Pre TREMAYNE Flow: 3: Complete and Brisk Flow/Perfusion csmith 02:45 PM Time: 14:44 Angiomax 0.75mg/kg bolus: 13 ml Intravenous Given by Ally Thacker RN IVP csmith 02:45 PM 6Fr XB LAD 3.5 [place] Bright-Tip guide catheter was used to cannulate the PCI vessel successfully. reused? No csmith 02:46 PM Recorded Pressure: Ao, HR=73, Condition=Condition 1 (Aorta) Ao 124/63/87 02:46 PM [facility] notified of need for 2N bed csmith 02:47 PM Time: 14:47 Angiomax 1.75mg/kg/hr: 30 ml/hr Intravenous Given by Ally Thacker RN Sarabia pump csmith 02:49 PM HR=74 bpm, IEVQ=162/59 mmhg, SpO2=94.0 %, Resp=16 B/min, Comment=nsr 02:51 PM .014 Prowater 180cm guide wire across target lesion- successful. reused? No in circumflex csmith 02:51 PM .014 PT Graphix 182cm guide wire across target lesion- successful. reused? No in 2nd marginal csmith 02:53 PM 2.75mm x 8mm Rebel [employer] bare metal stent across target lesion- successful Lot #[id number] csmith 02:54 PM HR=75 bpm, XEZX=553/57 mmhg, SpO2=92.0 %, Resp=18 B/min, Comment=nsr 02:56 PM Stent deployed @ 12 johanna for 30 seconds csmith 02:56 PM Time: 14:41 Patient comfortable and pain free: Yes csmith 02:56 PM Time: 14:41LOC: 4 = Oriented but drowsy csmith 02:56 PM Stent delivery system removed intact. csmith 02:57 PM Time: 14:57 Nitroglycerin 200 mcg Intracoronary Given by Ana Winchester MD, FACC csmith 02:59 PM HR=79 bpm, NIBP=87/52 mmhg, SpO2=90.0 %, Comment=nsr 02:59 PM Time: 14:59 Brilinta 180 mg Orally - crushed Given by Ally Thacker RN csmith 02:59 PM pt graphix and prowater removed csmith 02:59 PM guide catheter removed csmith 03:01 PM Procedure completed at 15:01 csmith 03:01 PM Sign out completed: Radiation Dose 882 mGy Fluoro Time: 5.8 Isovue 370 - 200ml contrast 228 ml given by Ana Winchester MD, FACC. Complications: NoneCardiac Rehab Consult needed: YesConfirmed administered medications: Yes csmith 03:02 PM Sheath left in place to be pulled on floor/holding area csmith 03:02 PM Post ECG NSR csmith 03:03 PM Post Blood Pressure 87/52 csmith 03:03 PM 15:03 Post Pulses Bilateral DP \\T\\ PT 1+ csmith 03:03 PM Information taught Cardiac Cath and PCI csmith 03:03 PM Education needs Responsibilities of Patient in Care csmith 03:03 PM Learning barriers :None csmith 03:03 PM Education Methods Verbal csmith 03:03 PM Education evaluation Able to repeat information csmith 03:03 PM Site status No bleeding/hematoma - Rt Groin as reported by Jes Prieto RT (R) at 15:03 csmith 03:03 PM Opsite applied csmith 03:04 PM HR=77 bpm, LMLE=378/64 mmhg, SpO2=89.0 %, Resp=33 B/min, Comment=nsr 03:05 PM Report given to Feli CARMICHAEL Pt taken to 2N Room #12. 15:04 csmith 03:05 PM Plavix, Effient or Brilinta given No csmith 03:05 PM Family placed in consult room. csmith 03:06 PM Complications: None csmith 03:06 PM Lesion found in Proximal LAD. Pre Stenosis: 20 Pre TREMAYNE Flow: 3: Complete and Brisk Flow/Perfusion csmith 03:06 PM Lesion found in Mid LAD. Pre Stenosis: 30 Pre TREMAYNE Flow: 3: Complete and Brisk Flow/Perfusion csmith 03:07 PM Lesion found in Proximal Circumflex. Pre Stenosis: 30 Pre TREMAYNE Flow: 3: Complete and Brisk Flow/Perfusion csmith 03:09 PM Patient out of room: 15:09 csmith Complications Complication None None Hemodynamics Pressures Site Systolic/A Wave Diastolic/V Wave Mean AO 104 64 81 AO 124 63 87 Post Procedure Information Blood Pressure: 87/52 mmHg Rhythm: NSR Post procedural instructions were given Closure Device Time Device Success/Fail Manual Compression Site Checks Time Location Status Staff Sheath In? Note 03:03 PM Rt Groin No bleeding/hematoma Jes Prieto RT (R) Pulses Time Site Pre-Procedure Post-Procedure Note 02/05/2017 2:03:00 PM Bilateral DP \\T\\ PT 2+ 3:03:00 PM Bilateral DP \\T\\ PT 1+ Updated by Ally Thacker RN on 02/05/2017 3:09:15 PM electronically signed on 02/05/2017 3:09:53 PM with status of Final
[2017-02-05] MEDS ORDERED: *HR* Atropine Sulfate 1 MG/10 ML SYRINGE ONE (18:00)
--- NOTE | 2017-02-05 18:38 | Invasive Diagnostic Lab ---
Name: Sam Padilla Date of Study: 02/05/2017 Date: 1940 Ht: 175.0 cm /68.9 in Medical Record#: [id number] Age: 76 Wt: 82.6 kg / 182.10 lb Account/Order#: [id number] Gender: Male BSA: 1.98 Order #: [id number] Fluoro Dose: 882 mGy BMI: 26.97 Procedure Physician: Ana Winchester MD, FACC Referring MD: Referring MD: Procedures Performed: Stent w/ PTCA Single Major Vessel CORONARY ANGIOGRAPHY Indications: Non-Stemi Impressions: Single vessel coronary artery disease. Patient had successful Bare Metal Stent placement in the 1st marginal. Recommendations: Dual antiplatelet therapy. Optimal medical therapy of patient's disease. Aggressive risk factor modification. History/Risk Factors: Aortic stenosis CKD leukocytosis Nasopharyngeal CA COPD DVT Diabetes Hypertension Chronic Lung Disease Procedure Access obtained in the right Femoral artery by percutaneous puncture Patient had successful Bare Metal Stent placement in the 1st marginal. Complications: None, None Contrast: Isovue 228ml Closure Device: Manual Compression Hemodynamics: Pressures Site Systolic/ A Wave Diastolic/ V Wave End Diastolic/ Mean HR AO 104 64 81 71 AO 124 63 87 73 Coronary Dominance: Left Lesion Findings/Interventions * Left Main Coronary Artery The LMCA is angiographically free of disease. * Left Anterior Descending There is a 20% stenosis in the Proximal LAD. The lesion has a TREMAYNE flow of 3. There is a 30% stenosis in the Mid LAD. The lesion has a TREMAYNE flow of 3. * Circumflex There is a 30% stenosis in the Proximal Circumflex. The lesion has a TREMAYNE flow of 3. There is a 7 mm long, 99% stenosis in the 2nd Marginal. The lesion has a TREMAYNE flow of 3 and has no thrombus present. An intervention was performed on the 2nd Marginal with a final stenosis of 0%. There were no lesion complications. The final TREMAYNE flow was 3. * Right Coronary Artery Small, non-dominant vessel. The RCA is angiographically free of disease. Interventional Device(s) Vessel Segment Type Name Diameter (mm) Length (mm) 2nd Marginal Bare Metal Stent Rebel [employer] 2.75 8 Updated by Ana Winchester MD, FACC on 02/05/2017 6:31:11 PM Ana Winchester MD, FACC electronically signed on 02/05/2017 6:32:05 PM with status of Final
[2017-02-05] MEDS: *HR* HYDROcodone/Acet 7.5/325 mg TABLET PO PRN (19:53)
[2017-02-05] MEDS: Gabapentin 100 MG CAPSULE PO SCH (19:54)
[2017-02-05] MEDS: 0.9 % Sodium Chloride 1,000 ML IVC SCH (19:56)
--- NOTE | 2017-02-05 23:48 | Electrocardiograph Report ---
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
[2017-02-06 05:31] LABS: Hematocrit 22.9 % (37.5-50.1); Hemoglobin 7.3 g/dL (12.9-16.9); Mean Corpuscular HGB Conc 31.9 g/dL (31.6-35.5); Mean Corpuscular Hemoglobin 30.3 pg (28.0-33.3); Mean Platelet Volume 10.7 fL (9.4-12.4); Platelet Count 173 K/mcL (140-400); Red Blood Count 2.41 M/mcL (4.19-5.50); Red Cell Distribution Width 14.1 % (11.5-14.5)
[2017-02-06 05:48] LABS: BUN/Creatinine Ratio 28 (6-26); Blood Urea Nitrogen 36 mg/dL (8-26); Carbon Dioxide 22 mEq/L (19-29); Chloride 109 mEq/L (98-109); Glucose 138 mg/dL (70-99); Osmolality,Calculated 299 (280-300); Potassium 4.2 mEq/L (3.5-4.5); Sodium 139 mEq/L (136-145); eGFR For African Americans > 60 (> 60); eGFR For Non-African Americans 55 (> 60)
[2017-02-06] MEDS: Cholecalciferol (D-3) 1,000 UNIT TABLET PO SCH (08:05)
[2017-02-06] MEDS: Aspirin 81 MG TAB.CHEW PO SCH (08:05)
[2017-02-06] MEDS: *HR* HYDROcodone/Acet 7.5/325 mg TABLET PO PRN ×2 (08:05→19:58)
[2017-02-06] MEDS: Finasteride 5 MG TABLET PO SCH (08:05)
[2017-02-06] MEDS: PROPYLENE GLYCOL OP SCH ×3 (08:06→20:05)
[2017-02-06] MEDS: PEG OP SCH ×3 (08:06→20:05)
[2017-02-06] MEDS: Insulin LISPRO 300 UNITS/3 ML VIAL SQ SCH ×4 (08:39→20:06)
--- NOTE | 2017-02-06 09:03 | Cardiology Progress Note ---
Date of Encounter: 02/06/17 Time of Encounter: 09:01 Assessment and Plan (1) NSTEMI (non-ST elevated myocardial infarction) Current Visit: Yes Status: Acute Troponins 1.45, 1.05, 1.88, 1.69. [facility] yesterday single vessel CAD, successful BMS in 1st marginal. DAPT (ASA and Plavix) x 1 month uninterrupted. Pt verbalizes understanding. Continue Statin, BB. HGB 7.3 today, was 7.9 yesterday--chronic anemia. TTE 09/22/2016: LVEF 60-65%. Mild concentric LVH. Mild diastolic dysfunction. Heavily calcified aortic valve with reduced mobility. Mild aortic regurgitation. Probable severe aortic stenosis (mean gradient 37 mm record, peak velocity 4.06 m/s, dimensionless index 0.22). RVSP not well obtained. Repeat echo ordered. Right femoral access site healing well. No bleeding, hematoma or ecchymosis noted. Cardiology signing off. Reconsult PRN. Follow-up in 1 week as outpt--will coordinate. (2) Severe aortic stenosis Current Visit: Yes Status: Chronic Known severe . TTE 09/22/2016: LVEF 60-65%. Mild concentric LVH. Mild diastolic dysfunction. Heavily calcified aortic valve with reduced mobility. Mild aortic regurgitation. Probable severe aortic stenosis (mean gradient 37 mm record, peak velocity 4.06 m/s, dimensionless index 0.22). Follows with [facility], has follow-up 03/[address] Meehan. Previous intervention was postponed due to head and neck cancer--since completed chemoradiation. (3) Chronic anemia Current Visit: Yes Status: Acute HGB 7.3 today, 7.9 yesterday--baseline low 8s, as low as 6s in the past. No evidence of active bleeding. (4) CAD (coronary artery disease) Current Visit: No Status: Acute As above. ASA, Plavix, Statin, BB. Qualifiers: Coronary Disease-Associated Artery/Lesion type: [place] artery [place] vs. transplanted heart: [place] heart Associated angina: without angina Qualified Code(s): I25.10 - Atherosclerotic heart disease of [place] coronary artery without angina pectoris (5) CKD (chronic kidney disease) stage 3, GFR 30-59 ml/min Current Visit: Yes Status: Chronic Creatinine improved s/p LHC. Creatinine 1.27 today, was 1.60 yesterday. Discussion w patient/family: The assessment and plan as outlined above was discussed with the patient and/or family members who expressed understanding and agreement. All questions were answered. Thank you for involving us in the care of your patient. Please call with any questions. I will discuss all the above with Dr. Lantigua and make changes as necessary. Subjective Principal diagnosis: NSTEMI, severe Interval history: S/P C yesterday--single vessel CAD, successful BMS in 1st marginal. Pt denies any chest pain overnight. No acute complaints. Objective Vital Signs, Last 4 Hours Temp Pulse Resp BP Pulse Ox 02/06/17 07:45 97.3 F L 65 16 144/71 96 Vital Signs Temp Pulse Resp BP Pulse Ox 02/06/17 07:45 97.3 F L 65 16 144/71 96 02/06/17 04:29 98 02/06/17 04:12 97.4 F L 63 15 126/75 96 02/06/17 03:00 135/66 02/06/17 02:00 128/65 02/06/17 01:00 125/68 02/06/17 00:00 117/61 02/05/17 23:28 97.5 F L 72 14 123/68 97 02/05/17 23:00 117/63 02/05/17 22:00 122/59 02/05/17 21:00 134/67 02/05/17 20:30 140/82 02/05/17 20:00 149/70 02/05/17 19:45 142/74 02/05/17 19:32 97.8 F 68 15 149/72 97 02/05/17 19:30 146/72 02/05/17 19:10 69 149/72 02/05/17 19:00 69 153/83 98 02/05/17 18:46 161/68 02/05/17 18:45 72 161/68 02/05/17 18:42 67 161/73 02/05/17 18:35 67 18 162/79 97 02/05/17 18:30 66 155/76 02/05/17 18:25 67 160/84 02/05/17 18:20 69 146/77 02/05/17 18:15 72 158/89 02/05/17 18:10 70 162/78 02/05/17 18:05 73 147/80 02/05/17 17:45 71 17 159/72 98 02/05/17 17:30 158/75 98 02/05/17 17:00 68 140/68 96 02/05/17 16:45 71 146/79 02/05/17 16:30 73 145/82 02/05/17 16:15 70 17 144/75 98 02/05/17 16:00 72 156/73 02/05/17 15:40 72 141/72 02/05/17 15:35 98.4 F 74 20 142/70 97 02/05/17 15:30 76 142/70 02/05/17 13:35 74 16 142/70 94 02/05/17 11:51 98.2 F 82 16 124/62 92 Intake and Output 02/05/17 02/06/17 02/06/17 23:59 07:59 15:59 Intake Total 30 / 30 0 / 0 0 / 0 Output Total 600 / 600 800 / 800 Balance -570 / -570 -800 / -800 0 / 0 Intake: Free Water Intake Amount 30 / 30 0 / 0 0 / 0 Output: Urine 600 / 600 800 / 800 Other: Weight 84.453 kg Blood Glucose* 116 180 Patient Weight 02/06/17 23:59 Weight 84.453 kg General: Conversant, No Apparent Distress HEENT: Atraumatic, Normocephaly, Mucus Membranes Moist Neck: No JVD, Normal carotid pulses Cardiac: Reg Rate and Rhythm, Normal S1 and S2, Other (2/3 NEHA) Lungs: Normal Breath Sounds, No Wheeze, Rales, Rhonchi Neuro: Alert and responsive, No focal deficits noted Abdomen: Soft, Non-Tender Skin: Other (right femoral access site healing well. No bleeding, hematoma or ecchymosis noted.) Musculoskeletal: No Chest Wall Tenderness Extremities: No Clubbing, No Cyanosis, No Edema, Normal Pulses Results 02/06/17 04:24 02/06/17 04:24 Lab Results 02/05/17 02/06/17 02/06/17 12:37 04:24 04:24 WBC 8.5 Hgb 7.3 L Hct 22.9 L Plt Count 173 APTT 52.7 H Sodium 139 Potassium 4.2 Chloride 109 Carbon Dioxide 22 BUN 36 H D Creatinine 1.27 H Glucose 138 H Calcium 9.0 Short CBC 02/06/17 Range/Units 04:24 WBC 8.5 (4.3-11.1) K/mcL Hgb 7.3 L (12.9-16.9) g/dL Hct 22.9 L (37.5-50.1) % Plt Count 173 (140-400) K/mcL BMP 02/06/17 Range/Units 04:24 Sodium 139 (136-145) mEq/L Potassium 4.2 (3.5-4.5) mEq/L Chloride 109 (98-109) mEq/L Carbon Dioxide 22 (19-29) mEq/L BUN 36 H D (8-26) mg/dL Creatinine 1.27 H (0.72-1.25) mg/dL Glucose 138 H (70-99) mg/dL Calcium 9.0 (8.6-10.8) mg/dL Active Medications Acetaminophen/Hydrocodone Bitart ([place] 7.5-325 Mg) 1 tab PO Q4H PRN PRN Reason: Pain Stop: 08/06/17 20:44 Last Admin: 02/06/17 08:05 Dose: 1 tab Albuterol/Ipratropium (Duoneb) 3 ml IH [id number] PRN; Protocol PRN Reason: Shortness Of Breath/Wheezing Stop: 08/06/17 20:46 Aspirin (Aspirin) 81 mg PO DAILY [facility] Stop: 08/07/17 09:01 Last Admin: 02/06/17 08:05 Dose: 81 mg Atorvastatin Calcium (Lipitor) 40 mg PO HS [facility] Stop: 08/07/17 21:01 Last Admin: 02/05/17 19:53 Dose: 40 mg Clopidogrel Bisulfate (Plavix) 75 mg PO DAILY [facility] Stop: 08/08/17 09:01 Last Admin: 02/06/17 08:05 Dose: 75 mg Dextrose/Water (Dextrose 50% (Syg)) 25 ml IVP AD PRN PRN Reason: Hypoglycemia Stop: 08/06/17 20:37 Docusate Sodium (Colace) 100 mg PO BID [facility] PRN Reason: Protocol Stop: 08/06/17 21:01 Last Admin: 02/06/17 08:05 Dose: 100 mg Finasteride (Proscar) 5 mg PO DAILY [facility] PRN Reason: Protocol Stop: 08/07/17 09:01 Last Admin: 02/06/17 08:05 Dose: 5 mg Gabapentin (Neurontin) 100 mg PO HS [facility] Stop: 08/06/17 21:01 Last Admin: 02/05/17 19:54 Dose: 100 mg Glucagon (Glucagen) 1 mg IM ONCE PRN PRN Reason: Hypoglycemia Stop: 08/06/17 20:37 Glucose (Gluctose) 15 gm PO ONCE PRN PRN Reason: Hypoglycemia Stop: 08/06/17 20:37 Glucose (Gluctose) 30 gm PO ONCE PRN PRN Reason: Hypoglycemia Stop: 08/06/17 20:37 Dextrose (Dextrose 5%) 1,000 mls @ 100 mls/hr IVC .Q10H PRN PRN Reason: HYPOGLYCEMIA Stop: 08/06/17 20:37 Sodium Chloride (0.9 % Sodium Chloride) 1,000 mls @ 30 mls/hr IVC .Q24H [facility] Stop: 08/06/17 20:46 Last Admin: 02/05/17 19:56 Dose: Not Given Insulin Human Lispro (Humalog) 0 units SQ HS [facility] PRN Reason: Protocol Stop: 08/06/17 21:01 Last Admin: 02/05/17 19:56 Dose: Not Given Insulin Human Lispro (Humalog) 0 units SQ TIDAC [facility] PRN Reason: Protocol Stop: 08/07/17 07:31 Last Admin: 02/06/17 08:39 Dose: 4 units Metoprolol Tartrate (Lopressor) 25 mg PO BID [facility] Stop: 08/07/17 11:31 Last Admin: 02/06/17 08:05 Dose: 25 mg Multi-Ingredient Mouthwash/Gargle (Magic Mouthwash) 10 ml PO QID PRN PRN Reason: Pain Naloxone HCl (Narcan) 0.4 mg IVP Q2MIN PRN PRN Reason: Opioid Reversal Stop: 08/06/17 20:03 Nitroglycerin (Nitroglycerin) 0.4 mg SL Q5MIN PRN PRN Reason: Chest Pain Stop: 08/07/17 15:06 Omeprazole (Prilosec) 20 mg PO DAILY [facility] Stop: 08/07/17 09:01 Last Admin: 02/06/17 08:05 Dose: 20 mg Pharmacy Profile Note (Patient Taking Own Medication) 0 each OP TID [facility] Stop: 08/06/17 21:01 Last Admin: 02/06/17 08:06 Dose: 1 each Terazosin HCl (Hytrin) 5 mg PO HS [facility] Stop: 08/06/17 21:01 Last Admin: 02/05/17 19:53 Dose: 5 mg Vitamin D (Vitamin D) 2,000 unit PO DAILY [facility] Stop: 08/07/17 09:01 Last Admin: 02/06/17 08:05 Dose: 2,000 unit - Imaging and Cardiology Cardiac cath: report reviewed - EKG Interpretation EKG results cardiology: other (24 hour tele AVG HR 68, SR) Consult Discharge Plan - Plan Additional Instructions: RISK FACTORS: STOP SMOKING: If you smoke, STOP. Smoking or tobacco use significantly increases your risk of heart disease because nicotine causes the arteries to narrow or constrict. It also causes fats to stick to the artery. Your chances of having a heart attack are greatly increased if you continue to smoke. For more information, call the education line for smoking cessation 7-783-CZLGGJB EAT A LOW FAT/CHOLESTEROL/SODIUM DIET: This diet may help reduce your chances of having a heart attack. LIFTING: Avoid lifting anything more than 10 pounds for 5-7 days Prior to straining, laughing, sneezing and/or coughing, apply manual pressure directly over insertion site. ACTIVITY: You may walk or climb stairs as tolerated You can resume sexual activity as tolerated In general, you are encouraged to engage in a minimum of 30 minutes or more of moderate intensity physical activity, such as brisk walking, daily or at least 3 -4 times weekly BATHING Do not submerge the site into water (bath tub, hot tub, swimming pool) for 1 week. This can be a source for infection into the blood stream. You may shower after 24 hours SITE CARE: After 24 hours, you may remove the dressing and leave the site open to air. Keep the site clean and dry. Clean gently and pat dry. You can expect bruising and tenderness that gradually resolve within a week or two. Return to work as instructed per your physician Resume driving as instructed per physician Keep all scheduled follow up appointments Resume medications as instructed IMPORTANT: If prescribed a Platelet Aggregation Inhibitor such as, Plavix, Brilinta or Effient: Duration of therapy is minimum one year These medications are often used in combination with Aspirin in prevention of future heart attacks Never discontinue unless consult with your Hospice Care Consultant STROKE (CVA) Risk factors for a stroke are: Age, cigarette smoking, diabetes, excessive alcohol consumption, family history, high blood pressure, overweight, physical inactivity, prior stroke, heart attack, diagnosis of carotid artery stenosis or other artery disease. Warning signs: Sudden numbness or weakness of the face, arm or leg; especially on one side of the body, sudden confusion, trouble speaking or understanding, sudden trouble seeing in one or both eyes, sudden trouble walking, dizziness, loss of balance or coordination, sudden severe headache with no cause. Call 911 or go to the Emergency Room. CONGESTIVE HEART FAILURE: If you have been diagnosed with Congestive Heart Failure (CHF) and your symptoms return, make an appointment with your physician Weigh yourself daily. Notify your physician if you have a weight gain of two or more pounds in one day or five or more pounds in one week. If you experience any difficulty breathing, please call 911 BLEEDING: Although the risk of bleeding is minimal, it can happen. If you have any bleeding from the site, apply firm pressure above the puncture site for 10-15 minutes. If the bleeding does not stop, continue manual pressure and call 911 Contact your physician if: You develop a fever greater than 101 degrees Fahrenheit Your site becomes reddened or has any drainage You have an increase in pain or burning at the site or if a large knot forms at the site. If you experience chest pain, shortness of breath, dizziness, or extreme tiredness, stop the activity and rest. Please notify your physicians office if you experience any of these symptoms and they are not relieved by rest please call 911! Referrals: Nyla Fry CNP [Partnered Physician] - ([facility]) [facility] Care Provider[facility] - 02/14/17 10:30 am
--- NOTE | 2017-02-06 15:57 | Internal Med Progress Note ---
Date of Encounter: 02/06/17 Time of Encounter: 10:20 - Assessment and plan (1) NSTEMI (non-ST elevated myocardial infarction) Current Visit: Yes Status: Acute Assessment and plan: pt with troponin elevation 1.88>1.61 LHC - bare metal stent to marginal - ASA, Plavx, BB, Statin cardiology following (2) Severe aortic stenosis Current Visit: Yes Status: Chronic Assessment and plan: LVEF 60-65%, needs valve replacement (3) Chronic kidney disease (CKD) Current Visit: No Status: Chronic Assessment and plan: BUN 36/Cr 1.27 continue to monitor renal function avoid nephrotoxin continue IVF Qualifiers: Chronic kidney disease stage: stage 3 (moderate) Qualified Code(s): N18.3 - Chronic kidney disease, stage 3 (moderate) (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 Not in any distress. Denies chest pain or shortness of breath. 1 unit PRBC this morning for anemia. No fever. No other acute events or complaints. - Constitutional Vitals: Temp Pulse Resp BP Pulse Ox 97.6 F 54 15 151/74 98 02/06/17 15:33 02/06/17 15:33 02/06/17 15:33 02/06/17 15:33 02/06/17 15:54 General appearance: Present: A&O X 3, no acute distress, answers questions appropriately - Head Head exam: Present: atraumatic - Neck Neck exam general surgery: Present: supple - Respiratory Respiratory exam: Present: CTAB. Absent: rhonchi, wheezes - Cardiovascular Cardiovascular exam: Present: RRR, +S1, +S2 - GI/Abdominal GI/Abdominal exam: Present: soft. Absent: guarding, tenderness - Extremities Exam Extremities exam: Present: radial pulses palpable and symetrical. Absent: cyanotic, pedal edema Additional comments: right groin cath site looks ok - Neurological Exam Neurological exam: Present: alert, oriented X3, no focal deficits Internal Medicine: Result - Labs CBC & Chem 7: 02/06/17 04:24 02/06/17 04:24 Labs: Short CBC 02/06/17 Range/Units 04:24 WBC 8.5 (4.3-11.1) K/mcL Hgb 7.3 L (12.9-16.9) g/dL Hct 22.9 L (37.5-50.1) % Plt Count 173 (140-400) K/mcL BMP 02/06/17 04:24 Sodium 139 Potassium 4.2 Chloride 109 Carbon Dioxide 22 BUN 36 H D Creatinine 1.27 H Glucose 138 H Calcium 9.0 - ABG Interpretation ABG results: PT/INR, D-dimer PT 14.6 Seconds (9.4-12.1) H 02/04/17 15:52 Consult Discharge Plan - Plan Additional Instructions: RISK FACTORS: STOP SMOKING: If you smoke, STOP. Smoking or tobacco use significantly increases your risk of heart disease because nicotine causes the arteries to narrow or constrict. It also causes fats to stick to the artery. Your chances of having a heart attack are greatly increased if you continue to smoke. For more information, call the education line for smoking cessation 6-158-BNQPDPZ EAT A LOW FAT/CHOLESTEROL/SODIUM DIET: This diet may help reduce your chances of having a heart attack. LIFTING: Avoid lifting anything more than 10 pounds for 5-7 days Prior to straining, laughing, sneezing and/or coughing, apply manual pressure directly over insertion site. ACTIVITY: You may walk or climb stairs as tolerated You can resume sexual activity as tolerated In general, you are encouraged to engage in a minimum of 30 minutes or more of moderate intensity physical activity, such as brisk walking, daily or at least 3 -4 times weekly BATHING Do not submerge the site into water (bath tub, hot tub, swimming pool) for 1 week. This can be a source for infection into the blood stream. You may shower after 24 hours SITE CARE: After 24 hours, you may remove the dressing and leave the site open to air. Keep the site clean and dry. Clean gently and pat dry. You can expect bruising and tenderness that gradually resolve within a week or two. Return to work as instructed per your physician Resume driving as instructed per physician Keep all scheduled follow up appointments Resume medications as instructed IMPORTANT: If prescribed a Platelet Aggregation Inhibitor such as, Plavix, Brilinta or Effient: Duration of therapy is minimum one year These medications are often used in combination with Aspirin in prevention of future heart attacks Never discontinue unless consult with your [employer] Faculty Assistant STROKE (CVA) Risk factors for a stroke are: Age, cigarette smoking, diabetes, excessive alcohol consumption, family history, high blood pressure, overweight, physical inactivity, prior stroke, heart attack, diagnosis of carotid artery stenosis or other artery disease. Warning signs: Sudden numbness or weakness of the face, arm or leg; especially on one side of the body, sudden confusion, trouble speaking or understanding, sudden trouble seeing in one or both eyes, sudden trouble walking, dizziness, loss of balance or coordination, sudden severe headache with no cause. Call 911 or go to the Emergency Room. CONGESTIVE HEART FAILURE: If you have been diagnosed with Congestive Heart Failure (CHF) and your symptoms return, make an appointment with your physician Weigh yourself daily. Notify your physician if you have a weight gain of two or more pounds in one day or five or more pounds in one week. If you experience any difficulty breathing, please call 911 BLEEDING: Although the risk of bleeding is minimal, it can happen. If you have any bleeding from the site, apply firm pressure above the puncture site for 10-15 minutes. If the bleeding does not stop, continue manual pressure and call 911 Contact your physician if: You develop a fever greater than 101 degrees Fahrenheit Your site becomes reddened or has any drainage You have an increase in pain or burning at the site or if a large knot forms at the site. If you experience chest pain, shortness of breath, dizziness, or extreme tiredness, stop the activity and rest. Please notify your physicians office if you experience any of these symptoms and they are not relieved by rest please call 911! Referrals: Nyla Fry CNP [Partnered Physician] - (waitng on approval from [place]) [place]PCP [Primary Care Provider] - 02/14/17 10:30 am
[2017-02-06 17:32] LABS: Hemoglobin 8.3 g/dL (12.9-16.9)
[2017-02-06] MEDS: Gabapentin 100 MG CAPSULE PO SCH (19:59)
[2017-02-07] MEDS: *HR* HYDROcodone/Acet 7.5/325 mg TABLET PO PRN ×2 (04:34→09:18)
[2017-02-07 05:28] LABS: Hematocrit 25.5 % (37.5-50.1); Hemoglobin 8.3 g/dL (12.9-16.9); Mean Corpuscular HGB Conc 32.5 g/dL (31.6-35.5); Mean Corpuscular Hemoglobin 30.1 pg (28.0-33.3); Mean Corpuscular Volume 92.4 fL (83.0-100.0); Mean Platelet Volume 10.4 fL (9.4-12.4); Platelet Count 157 K/mcL (140-400); Red Blood Count 2.76 M/mcL (4.19-5.50); Red Cell Distribution Width 14.5 % (11.5-14.5)
[2017-02-07] MEDS: PROPYLENE GLYCOL OP SCH (09:13)
[2017-02-07] MEDS: PEG OP SCH (09:13)
[2017-02-07] MEDS: Aspirin 81 MG TAB.CHEW PO SCH (09:18)
[2017-02-07] MEDS: Finasteride 5 MG TABLET PO SCH (09:18)
[2017-02-07] MEDS: Cholecalciferol (D-3) 1,000 UNIT TABLET PO SCH (09:18)
[2017-02-07] MEDS: Insulin LISPRO 300 UNITS/3 ML VIAL SQ SCH (09:19)
--- NOTE | 2017-02-07 11:12 | Discharge Summary ---
Date of Encounter: 02/07/17 Time of Encounter: 10:00 - Discharge Diagnosis (1) NSTEMI (non-ST elevated myocardial infarction) Priority: Primary Status: Acute Comments: pt with troponin elevation 1.88>1.61 s/p LHC - bare metal stent to 1st marginal - continue ASA, Plavix, BB, Statin follow up with cardiology in 1 week (2) Severe aortic stenosis Priority: Primary Status: Chronic Comments: follows up at [facility] cardiology, LVEF 60-65%, needs taximeter repairer replacement (3) Chronic kidney disease (CKD) Priority: Secondary Status: Chronic Comments: BUN 36/Cr 1.27, stage 2, stable, likely at baseline Qualifiers: Chronic kidney disease stage: stage 3 (moderate) Qualified Code(s): N18.3 - Chronic kidney disease, stage 3 (moderate) (4) Nasopharyngeal carcinoma Priority: Secondary Status: Chronic Comments: 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 Follows with oncologist. Due for a PET scan soon. (5) Hypertension Priority: Secondary Status: Chronic Comments: controlled, continue current meds Qualifiers: Hypertension type: essential hypertension Qualified Code(s): I10 - Essential (primary) hypertension (6) Chronic anemia Priority: Secondary Status: Acute Comments: H&H now stable, s/p 1 unit PRBC - Discharge Medications Prescriptions: Aspirin 81 mg PO DAILY 30 Days Atorvastatin [Lipitor] 40 mg PO HS 30 Days Clopidogrel [Plavix] 75 mg PO DAILY 30 Days Metoprolol [Lopressor] 25 mg PO BID 30 Days Home Medications: Finasteride [Proscar] 5 mg PO DAILY 06/06/15 [History] Terazosin [Hytrin] 5 mg PO HS 06/06/15 [History] Pantoprazole Sodium [Protonix] 40 mg PO DAILY 02/21/16 [History] Cholecalciferol (D-3) [Vitamin D] 2,000 unit PO DAILY 05/30/16 [History] Docusate [Colace] 100 mg PO BID 05/30/16 [History] Ondansetron [Zofran] 4 mg PO Q8HR PRN #90 tablet 09/12/16 [Rx] Prochlorperazine Maleate [Compazine] 10 mg PO Q8HR PRN #90 tablet 09/12/16 [Rx] Promethazine [Phenergan] 25 mg PO Q8HR PRN #90 tablet 10/22/16 [Rx] Magic Mouthwash [Magic Mouthwash BLM] 10 ml PO QID PRN #240 ml 11/29/16 [Rx] HYDROcodone/Acet 7.5/325 mg [[place] 7.5-325 mg] 1 tab PO Q4H PRN #120 tablet [Rx] Gabapentin [Neurontin] 100 mg PO HS 02/04/17 [History] Lactose-Reduced Food/Fiber [Isosource 1.5 Percy Liquid] 250 ml GTUBE 6XD 02/04/17 [History] Mupirocin [Bactroban Oint] 1 appl TP TID 02/04/17 [History] NIFEdipine XL (24 HR) [Procardia XL] 60 mg PO DAILY 02/04/17 [History] Patient Taking Own Medication 3 each PO TID 02/04/17 [History] Polyethylene Glycol 3350 [MiraLAX Powder Bulk 17.9 Oz] 17 gm PO DAILY PRN [History] Propylene Glycol/Peg 400 [Systane 0.3-0.4% Eye Drops] 1 drop BOTH EYES TID 02/04 [History] glipiZIDE [Glucotrol] 2.5 mg PO BIDWM 02/04/17 [History] Aspirin 81 mg PO DAILY 30 Days 02/07/17 [Rx] Atorvastatin [Lipitor] 40 mg PO HS 30 Days 02/07/17 [Rx] Clopidogrel [Plavix] 75 mg PO DAILY 30 Days 02/07/17 [Rx] Ipratropium/Albuterol Neb [Duoneb] 3 ml IH [id number] PRN #0 inhsol 02/07/17 [Rx] Metoprolol [Lopressor] 25 mg PO BID 30 Days 02/07/17 [Rx] Nitroglycerin 0.4 mg SL Q5MIN PRN #0 tab.subl 02/07/17 [Rx] Allergies/Adverse Reactions: Allergies No Known Allergies Allergy (Verified 11/08/16 19:45) Procedures/tests Complete & Pending: Procedures Performed prior 72 hours Category Date Time Status CL Cardiac Catheterization [CL] Routine 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 11:26 Completed EV echocardiogram Routine Y 02/06/17 08:16 Completed Date of admission: 02/04/17 18:19 Primary care physician: PCP NIKOLE Consults: 02/04/17 20:06 Consult to Cardiology [CONS] Routine Comment: Consulting Provider: Cardiology Shyanne Reason for Consult: NSTEMI Call Completed: No Consult to Nutrition [CONS] Routine Comment: Consulting Provider: NUTRITION Reason for Dietary Consult: TF Start and Manage 02/05/17 12:53 Consult to Cardiac Rehabilitation-Phase1 [CONS] Routine Comment: Reason for Consult: NSTEMI Call Completed: No Anticipated date of discharge: 02/07/17 - Patient Status Disposition: Home Health Service Condition: Good Functional capacity at discharge: uses cane/walker Overall status at discharge: patient is back to baseline - Discharge Instructions Instructions: Myocardial Infarction (DC), Aortic Stenosis (DC), Diabetes Mellitus Type 2 in Adults (DC), Chronic Obstructive Pulmonary Disease (DC), Sepsis (DC), Chronic Hypertension (DC) Follow Up With: Taz Hilton CNP [Advanced Practice Nurse] - 02/11/17 2:30 pm [facility],PCP [Primary Care Provider] - 02/14/17 10:30 am Shin Lantigua MD [Partnered Physician] - Forms: ED Satisfaction Letter Additional Instructions: RISK FACTORS: STOP SMOKING: If you smoke, STOP. Smoking or tobacco use significantly increases your risk of heart disease because nicotine causes the arteries to narrow or constrict. It also causes fats to stick to the artery. Your chances of having a heart attack are greatly increased if you continue to smoke. For more information, call the education line for smoking cessation 5-091-HGSUKIU EAT A LOW FAT/CHOLESTEROL/SODIUM DIET: This diet may help reduce your chances of having a heart attack. LIFTING: Avoid lifting anything more than 10 pounds for 5-7 days Prior to straining, laughing, sneezing and/or coughing, apply manual pressure directly over insertion site. ACTIVITY: You may walk or climb stairs as tolerated You can resume sexual activity as tolerated In general, you are encouraged to engage in a minimum of 30 minutes or more of moderate intensity physical activity, such as brisk walking, daily or at least 3 -4 times weekly BATHING Do not submerge the site into water (bath tub, hot tub, swimming pool) for 1 week. This can be a source for infection into the blood stream. You may shower after 24 hours SITE CARE: After 24 hours, you may remove the dressing and leave the site open to air. Keep the site clean and dry. Clean gently and pat dry. You can expect bruising and tenderness that gradually resolve within a week or two. Return to work as instructed per your physician Resume driving as instructed per physician Keep all scheduled follow up appointments Resume medications as instructed IMPORTANT: If prescribed a Platelet Aggregation Inhibitor such as, Plavix, Brilinta or Effient: Duration of therapy is minimum one year These medications are often used in combination with Aspirin in prevention of future heart attacks Never discontinue unless consult with your Comb Machine Operator STROKE (CVA) Risk factors for a stroke are: Age, cigarette smoking, diabetes, excessive alcohol consumption, family history, high blood pressure, overweight, physical inactivity, prior stroke, heart attack, diagnosis of carotid artery stenosis or other artery disease. Warning signs: Sudden numbness or weakness of the face, arm or leg; especially on one side of the body, sudden confusion, trouble speaking or understanding, sudden trouble seeing in one or both eyes, sudden trouble walking, dizziness, loss of balance or coordination, sudden severe headache with no cause. Call 911 or go to the Emergency Room. CONGESTIVE HEART FAILURE: If you have been diagnosed with Congestive Heart Failure (CHF) and your symptoms return, make an appointment with your physician Weigh yourself daily. Notify your physician if you have a weight gain of two or more pounds in one day or five or more pounds in one week. If you experience any difficulty breathing, please call 911 BLEEDING: Although the risk of bleeding is minimal, it can happen. If you have any bleeding from the site, apply firm pressure above the puncture site for 10-15 minutes. If the bleeding does not stop, continue manual pressure and call 911 Contact your physician if: You develop a fever greater than 101 degrees Fahrenheit Your site becomes reddened or has any drainage You have an increase in pain or burning at the site or if a large knot forms at the site. If you experience chest pain, shortness of breath, dizziness, or extreme tiredness, stop the activity and rest. Please notify your physicians office if you experience any of these symptoms and they are not relieved by rest please call 911! - Diet and Activity Activity: resume usual activities as tolerated Diet: low fat, low cholesterol Hospital course: Mr. 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 He presented to the [facility] with, chest pressure, profuse sweating, nausea and vomiting. Evaluation revealed troponin of 1.45. Hence he is sent to [facility] for further management. Troponin was elevated. Diagnosed with NSTEMI. Cardiology evaluated. LHC revealed single vessel disease and successful placement of BMS to 1st marginal . Now on ASA, Plavix, Statin. Required 1 unit PRBC due to low H&H. Chronic anemia due to iron deficiency. Will need to follow up with felt hat flanging operator at [facility] for aortic valve replacement. No complications during stay. Patient and explained about condition and plan of care. Understood and agreed. On the day of discharge, patient is awake and alert. not in any distress. Feels better and wants to go home. No other complaints. - Time Spent with Patient Total time spent providing and/or coordinating discharge services: Greater than 30 minutes - Constitutional Vitals: Temp Pulse Resp BP Pulse Ox 97.7 F 65 16 140/111 96 02/07/17 04:16 02/07/17 04:19 02/07/17 04:19 02/07/17 04:16 02/07/17 04:19 General appearance: Present: A&O X 3, no acute distress, answers questions appropriately - Head Head exam: Present: atraumatic - ENT ENT exam: Present: mucous membranes moist - Respiratory Respiratory exam: Present: CTAB. Absent: rhonchi, wheezes - Cardiovascular Cardiovascular exam: Present: RRR, +S1, +S2 - GI/Abdominal GI/Abdominal exam: Present: soft. Absent: guarding, tenderness - Extremities Exam Extremities exam: Present: radial pulses palpable and symetrical. Absent: cyanotic, pedal edema Additional comments: right groin cath site looks ok - Neurological Exam Neurological exam: Present: alert, oriented X3, no focal deficits
[2017-02-07 11:18] VITALS: BP 120/69
== END 2017-02-07 12:43 | disposition home health service (06) | DRG 249 ==
LOC: EMEROO 15:19 → 2NENU 18:19 → SUATTDRO 18:19 → 2NENU 19:15 → 2NNU 02-05 15:14
PROVIDERS: ADMIT Hospitalist; ATTEND Internal Medicine

== ENCOUNTER 2017-02-14 15:11 | Inpatient (IN) ==
[2017-02-14] MEDS ORDERED: 0.9 % Sodium Chloride 1,000 ML IVC ONE ×2 (15:20→16:29)
[2017-02-14] MEDS ORDERED: Ondansetron 4 MG/2 ML VIAL IVP ONE (15:29)
--- NOTE | 2017-02-14 15:30 | Emergency Department Note ---
Disposition Clinical Impression: HCAP (healthcare-associated pneumonia) Altered mental status Qualifiers: Altered mental status type: unspecified Qualified Code(s): R41.82 - Altered mental status, unspecified Sepsis Qualifiers: Sepsis type: sepsis due to unspecified organism Qualified Code(s): A41.9 - Sepsis, unspecified organism Chest pain Qualifiers: Chest pain type: unspecified Qualified Code(s): R07.9 - Chest pain, unspecified Disposition: Admitted As Inpatient Condition: Fair Altered Mental Status HPI - General Chief Complaint: ED Altered Mental Status Stated Complaint: AMS Time Seen by Provider: 02/14/17 15:14 Source: family, EMS Mode of arrival: EMS Limitations: altered mental status Nursing Notes Reviewed: Yes Vital Signs Reviewed: Yes - History of Present Illness HPI Narrative: 76-year-old male history of CAD, hypertension, hyperlipidemia, diabetes currently on Plavix for recent stenting roughly 2 weeks ago who presents to the ER from the [place] urgent care with a chief complaint of altered mental status, chest pain, nausea and vomiting. Patient is altered at the time of exam and history is obtained by EMS as well as his significant other. They report that earlier today he was at [facility] and started to feel 6 went to the car. At that time he was complaining of nausea and vomiting and the reports that he was not talking as much. They were seen at urgent care where her workup showed an elevated troponin of 1.45 as well as a white count of 20.9 and an acute kidney injury with a creatinine of 1.78. Patient received IV fluids, Tylenol, Nitropaste and Rocephin prior to transfer. He currently continues to complain of chest pain but is unable to describe any characteristics of it. He is actively retching in the room. reports that he just has not been talking much today. At the time of presentation cardiology was paged. complaint: altered mental status, other (Chest pain, nausea, vomiting) Onset (ago): hour(s) Time: 13:00 Timing confirmed by: spouse Pain Severity: unable Consistency of Symptoms: unknown Context: other (Prior stenting roughly 2 weeks ago) Associated symptoms: Reports: chest pain, diaphoresis, nausea/vomiting. Denies : syncope Treatments prior to arrival: IV fluid, other (Rocephin, Tylenol, Nitropaste) - Related Data Home Medications Medication Instructions Recorded Confirmed Finasteride [Proscar] 5 mg PO DAILY 06/06/15 02/14/17 Pantoprazole Sodium [Protonix] 40 mg PO DAILY 02/21/16 02/14/17 Cholecalciferol (D-3) [Vitamin D] 2,000 unit PO DAILY 05/30/16 02/14/17 Docusate [Colace] 100 mg PO BID 05/30/16 02/14/17 Gabapentin [Neurontin] 100 mg PO HS 02/04/17 02/14/17 Lactose-Reduced Food/Fiber 250 ml GTUBE 6XD 02/04/17 02/14/17 [Isosource 1.5 Percy Liquid] NIFEdipine XL (24 HR) [Procardia 60 mg PO DAILY 02/04/17 02/14/17 XL] Polyethylene Glycol 3350 [MiraLAX 17 gm PO DAILY PRN 02/04/17 02/14/17 Powder Bulk 17.9 Oz] glipiZIDE [Glucotrol] 2.5 mg PO BIDWM 02/04/17 02/14/17 Atorvastatin [Lipitor] 30 mg PO HS 02/14/17 02/14/17 Previous Rx's Medication Instructions Recorded Ondansetron [Zofran] 4 mg PO Q8HR PRN #90 tablet 09/12/16 Prochlorperazine Maleate 10 mg PO Q8HR PRN #90 tablet 09/12/16 [Compazine] Promethazine [Phenergan] 25 mg PO Q8HR PRN #90 tablet 10/22/16 Magic Mouthwash [Magic Mouthwash 10 ml PO QID PRN #240 ml 11/29/16 BLM] HYDROcodone/Acet 7.5/325 mg [[place] 1 tab PO Q4H PRN #120 tablet 01/29/17 7.5-325 mg] Aspirin 81 mg PO DAILY 30 Days 02/07/17 Clopidogrel [Plavix] 75 mg PO DAILY 30 Days 02/07/17 Metoprolol [Lopressor] 25 mg PO BID 30 Days 02/07/17 Nitroglycerin 0.4 mg SL Q5MIN PRN #0 tab.subl 02/07/17 Allergies Allergy/AdvReac Type Severity Reaction Status Date / Time No Known Allergies Allergy Verified 11/08/16 19:45 Limitations: ROS unobtainable due to patients medical condition Past Medical History - Past Medical History Attestation: Yes The following information was validated with the patient. Source: old records reviewed, obtained from family Medical history: Reports: arthritis, asthma, cancer, COPD, coronary artery disease, diabetes, hyperlipidemia, hypertension, myocardial infarction, valvular heart disease, other Surgical history: Reports: angioplasty/stent, cataract, cholecystectomy, other Psychiatric history: Reports: no psych history - Social History Smoking Status: Former smoker Smokeless Tobacco Status: No Alcohol use: Reports: none Drug use: Reports: none Physical Exam - General Limitations: altered mental status General appearance: lethargic - Head Head exam: atraumatic, normocephalic, normal inspection - Eye Eye exam: Present: normal appearance - ENT ENT exam: normal exam - Neck Neck exam: Present: full ROM - Chest Chest inspection: Present: normal inspection, symmetric chest wall rise - Respiratory Respiratory exam: Present: normal lung sounds bilaterally - Cardiovascular Cardiovascular exam: Present: normal rhythm, tachycardia, normal heart sounds - Abdominal Exam Abdominal exam: Present: soft. Absent: distention, rebound, rigidity - Extremities Exam Extremities exam: Present: normal inspection, full ROM - Expanded Upper Extremity Exam Shoulder exam: Present: normal inspection, full ROM Arm exam: Present: normal inspection, full ROM Elbow exam: Present: normal inspection, full ROM Forearm/Wrist exam: Present: normal inspection, full ROM Hand exam: Present: normal inspection, full ROM - Expanded Lower Extremity Exam Hip/Pelvis exam: Present: normal inspection, full ROM Upper leg exam: Present: normal inspection, full ROM Knee exam: Present: normal inspection, full ROM Lower leg exam: Present: normal inspection, full ROM Ankle exam: Present: normal inspection, full ROM Foot/toe exam: Present: normal inspection, full ROM - Neurological Exam Neurological exam: Present: other (GCS 13 patient opens eyes to voice. He will follow commands. Moves all extremities.). Absent: oriented X3 - Expanded Neurological Exam Patient oriented to: Present: person Coma Scale Eye Opening: To Voice Coma Scale Motor Response: Obeys Commands Coma Scale Verbal Response: Confused Coma Scale Total: 13 - Skin Skin exam: Present: warm, dry, intact, normal color Course Course Narrative: Patient seen and examined the time of arrival. Vital signs reviewed. He currently has a GCS of 13 complaining of active chest pain with Nitropaste applied. His EKG shows ischemic concerns with a left bundle branch block with T wave depressions in the lateral leads. Cardiology paged and discussed recommendations. Patient will have a CT of the head as well as altered mental status workup. Cardiology recommends to heparinize once we have the head scan back. - Reevaluation(s) Reevaluation #1: Given the patient's prior fever, tachycardia and chest x-ray concerning for pneumonia we will initiate H Antibiotic coverage with thinks Osan and Levaquin, check a lactate. We are currently holding off on the traditional 30 mL/kg also fluids given his history of CAD. His blood pressure remains stable at this time. - Consultations Consultation #1: Case discussed with the on-call storehouse clerk Dr. Winchester. Discussed patient's history EKG findings lab work and interventions today. He recommends to get a head CT prior to initiating heparin since the patient is altered. They will also be down to evaluate the patient. Time: 15:30 Vital Signs Temperature 98.3 F 02/14/17 15:14 Pulse Rate 121 02/14/17 15:14 Respiratory Rate 20 02/14/17 15:14 Blood Pressure 131/87 02/14/17 15:14 O2 Sat by Pulse Oximetry 94 02/14/17 15:14 Temperature 98.3 F 02/14/17 15:14 Pulse Rate 116 02/14/17 17:16 Respiratory Rate 20 02/14/17 17:16 Blood Pressure 104/62 02/14/17 17:16 O2 Sat by Pulse Oximetry 96 02/14/17 17:16 Oxygen Delivery Oxygen Delivery Nasal Cannula Altered Mental Status - [facility] Narrative Medical decision making narrative: 76-year-old male presents to the ER from the [place] urgent care due to altered mental status, elevated troponin and chest pain. Upon arrival he had a GCS of 13. Tachycardic in the 120s with a [facility] prior to arrival. His EKG showed new ischemic changes in lateral leads V5 and V6 with a left bundle branch block. Troponin there was 0.14 which had normalized here to 0.03. He has an elevated white count with a concerning chest x-ray for pneumonia. Given his recent hospitalization he meets healthcare associated pneumonia and will receive vancomycin and Zosyn and Levaquin. Cardiology was consulted and evaluated the patient in the ED. Although originally recommending heparin given the normalization of his troponin we will hold that at this time. Patient admitted to the hospitalist service for altered mental status, HCAP, chest pain. - Lab Data Lab results reviewed: Yes I reviewed the patient's lab results. Result diagrams: 02/14/17 16:10 02/14/17 16:10 Lab Results 02/14/17 02/14/17 02/14/17 Range/Units 16:10 16:10 16:10 WBC 17.4 H (4.3-11.1) K/mcL RBC 2.72 L (4.19-5.50) M/mcL Hgb 8.0 L (12.9-16.9) g/dL Hct 24.8 L (37.5-50.1) % MCV 91.2 (83.0-100.0) fL MCH 29.4 (28.0-33.3) pg MCHC 32.3 (31.6-35.5) g/dL RDW 13.9 (11.5-14.5) % Plt Count 182 (140-400) K/mcL MPV 9.5 (9.4-12.4) fL Immature Gran % 0.5 (0-4) % Seg Neutrophils % 93.6 % Lymphocytes % 1.5 % Monocytes % 4.0 % Eosinophils % 0.3 % Basophils % 0.1 % Neutrophils # 16.3 H (1.6-8.9) K/mcL Lymphocytes # 0.3 L (0.6-4.6) K/mcL Monocytes # 0.7 (0.0-1.3) K/mcL Eosinophils # 0.1 (0.0-0.6) K/mcL Basophils # 0.0 (0.0-0.2) K/mcL Hypochromasia Present A (Not Present) PT 13.9 H (9.4-12.1) Seconds INR 1.3 APTT 28.6 (26.0-36.0) Seconds Sodium 134 L (136-145) mEq/L Potassium 4.5 (3.5-4.5) mEq/L Chloride 103 (98-109) mEq/L Carbon Dioxide 23 (19-29) mEq/L BUN 41 H (8-26) mg/dL Creatinine 1.40 H (0.72-1.25) mg/dL Est GFR ( Amer) 60 (> 60) Est GFR (Non-Af Amer) 49 L (> 60) BUN/Creatinine Ratio 29 H (6-26) Glucose 112 H (70-99) mg/dL Calculated Osmolality 289 (280-300) Lactic Acid (0.5-2.2) mmol/L Calcium 8.9 (8.6-10.8) mg/dL Phosphorus (2.3-4.7) mg/dL Magnesium (1.6-2.6) mg/dL Total Bilirubin 0.8 (0.2-1.2) mg/dL Direct Bilirubin 0.4 (0.0-0.5) mg/dL Indirect Bilirubin 0.4 (0.0-1.2) mg/dL AST 26 (5-34) Units/L ALT 39 (0-55) Units/L Alkaline Phosphatase 72 (38-126) Units/L Troponin I (0-0.03) ng/mL B-Natriuretic Peptide (0-100) pg/mL Serum Total Protein 6.7 (6.0-8.3) g/dL Albumin 3.0 L (3.5-5.0) g/dL Globulin 3.7 H (2.4-3.5) g/dL Albumin/Globulin Ratio 0.8 L (1.1-2.2) Ethyl Alcohol < 10 (0-10) mg/dL 02/14/17 02/14/17 02/14/17 Range/Units 16:10 16:10 16:46 WBC (4.3-11.1) K/mcL RBC (4.19-5.50) M/mcL Hgb (12.9-16.9) g/dL Hct (37.5-50.1) % MCV (83.0-100.0) fL MCH (28.0-33.3) pg MCHC (31.6-35.5) g/dL RDW (11.5-14.5) % Plt Count (140-400) K/mcL MPV (9.4-12.4) fL Immature Gran % (0-4) % Seg Neutrophils % % Lymphocytes % % Monocytes % % Eosinophils % % Basophils % % Neutrophils # (1.6-8.9) K/mcL Lymphocytes # (0.6-4.6) K/mcL Monocytes # (0.0-1.3) K/mcL Eosinophils # (0.0-0.6) K/mcL Basophils # (0.0-0.2) K/mcL Hypochromasia (Not Present) PT (9.4-12.1) Seconds INR APTT (26.0-36.0) Seconds Sodium (136-145) mEq/L Potassium (3.5-4.5) mEq/L Chloride (98-109) mEq/L Carbon Dioxide (19-29) mEq/L BUN (8-26) mg/dL Creatinine (0.72-1.25) mg/dL Est GFR ( Amer) (> 60) Est GFR (Non-Af Amer) (> 60) BUN/Creatinine Ratio (6-26) Glucose (70-99) mg/dL Calculated Osmolality (280-300) Lactic Acid 0.5 (0.5-2.2) mmol/L Calcium (8.6-10.8) mg/dL Phosphorus (2.3-4.7) mg/dL Magnesium (1.6-2.6) mg/dL Total Bilirubin (0.2-1.2) mg/dL Direct Bilirubin (0.0-0.5) mg/dL Indirect Bilirubin (0.0-1.2) mg/dL AST (5-34) Units/L ALT (0-55) Units/L Alkaline Phosphatase (38-126) Units/L Troponin I 0.03 (0-0.03) ng/mL B-Natriuretic Peptide 143 H (0-100) pg/mL Serum Total Protein (6.0-8.3) g/dL Albumin (3.5-5.0) g/dL Globulin (2.4-3.5) g/dL Albumin/Globulin Ratio (1.1-2.2) Ethyl Alcohol (0-10) mg/dL 02/14/17 Range/Units 16:46 WBC (4.3-11.1) K/mcL RBC (4.19-5.50) M/mcL Hgb (12.9-16.9) g/dL Hct (37.5-50.1) % MCV (83.0-100.0) fL MCH (28.0-33.3) pg MCHC (31.6-35.5) g/dL RDW (11.5-14.5) % Plt Count (140-400) K/mcL MPV (9.4-12.4) fL Immature Gran % (0-4) % Seg Neutrophils % % Lymphocytes % % Monocytes % % Eosinophils % % Basophils % % Neutrophils # (1.6-8.9) K/mcL Lymphocytes # (0.6-4.6) K/mcL Monocytes # (0.0-1.3) K/mcL Eosinophils # (0.0-0.6) K/mcL Basophils # (0.0-0.2) K/mcL Hypochromasia (Not Present) PT (9.4-12.1) Seconds INR APTT (26.0-36.0) Seconds Sodium (136-145) mEq/L Potassium (3.5-4.5) mEq/L Chloride (98-109) mEq/L Carbon Dioxide (19-29) mEq/L BUN (8-26) mg/dL Creatinine (0.72-1.25) mg/dL Est GFR ( Amer) (> 60) Est GFR (Non-Af Amer) (> 60) BUN/Creatinine Ratio (6-26) Glucose (70-99) mg/dL Calculated Osmolality (280-300) Lactic Acid (0.5-2.2) mmol/L Calcium (8.6-10.8) mg/dL Phosphorus 2.6 (2.3-4.7) mg/dL Magnesium 1.6 (1.6-2.6) mg/dL Total Bilirubin (0.2-1.2) mg/dL Direct Bilirubin (0.0-0.5) mg/dL Indirect Bilirubin (0.0-1.2) mg/dL AST (5-34) Units/L ALT (0-55) Units/L Alkaline Phosphatase (38-126) Units/L Troponin I (0-0.03) ng/mL B-Natriuretic Peptide (0-100) pg/mL Serum Total Protein (6.0-8.3) g/dL Albumin (3.5-5.0) g/dL Globulin (2.4-3.5) g/dL Albumin/Globulin Ratio (1.1-2.2) Ethyl Alcohol (0-10) mg/dL - Radiology Data Radiology results reviewed: Yes I reviewed the patient's radiology results. Chest X-Ray 02/14/17 15:20 IMPRESSION: Increased bibasilar airspace disease, either atelectasis or pneumonia D/ / Misael Quintero MD / Misael Quintero MD Interpreting Provider: Misael Quintero MD Head CT 02/14/17 15:22 IMPRESSION: No acute intracranial abnormality. Ethmoid and maxillary sinus inflammatory disease. D/ / Brandon Corrales MD / Brandon Corrales MD Interpreting Provider: Brandon Corrales MD - EKG Data EKG attestation: Yes I reviewed and interpreted this EKG. EKG results narrative: EKG demonstrates sinus tachycardia with rate of 120 with a left bundle branch block that appears new. NE interval 160. QRS duration 147 [address]Tc [address] are [address] changes secondary to left bundle branch block as well as ST depressions in lateral leads V5 and V6 of [address] elevations. Critical Care Time Critical Care Time: Yes Total Critical Care Time: 35 Attestation: Care time for this patient was 35 minutes S.B.A.R. - S.B.A.R. Situation: Demographics, MOA Background: Presenting Complaint, Relevant PMH, Meds, & Allergies Assessment: Vital Signs, Course and respsone to treatment, Exam Concerns, Patient/Family Expectation, Pertinant Lab Results, Outstanding Labs Recommendation: Barrier(s) to disposition, Recommendation based on pending studies, treatments, or consults S.B.A.R. Report Given to: Hospitalist Janell Repor Time: 18:14 Attestation Statement - Attestation Attestation: Patient was seen with resident physician. I reviewed the history, physical, assessment and plan, and agree with the findings. I also personally evaluated this patient and had [id number] time with this patient. 76-year-old male presents to emergency department transfer from the [facility] with chief complaint of nausea vomiting chest pain. Patient started with nausea and vomiting while at the store. [facility]. He was treated for both nausea and chest pain. However his mental status declined and he was transferred to [facility] for further evaluation treatment. He is also noted to have an elevated temperature was unclear what the cause of the symptoms were. Patient provided very little history other than saying that he did still have some chest discomfort. Reviewing his medical records indicated that he had a stent placed approximately 9 days ago. Additionally his troponin was elevated today. We were unable to get no additional history. On examination vital signs are stable ENT is normal. Heart regular rhythm and rate. Lungs clear. Abdomen soft and nontender. Extremities unremarkable. Neurologically patient seems to move all extremities poorly answers questions provides no significant history. ED course EKG shows new left bundle-branch block from 9 days ago. Reviewing the labs from the [place] has an elevated troponin today. Cardiology was notified immediately upon his arrival. We will also do workup for sepsis and altered mental status to include a head CT scan. CT scan did not show acute abnormality. Chest x-ray showed probable pneumonia. Patient's mental status improved with IV hydration and IV antibiotics. Aggressive IV antibiotic therapy was started per sepsis protocol. Spoke with the hospitalist to start arranging for admission as well. Patient will be admitted for multiple medical problems including mental status change elevated troponin, chest pain, and sepsis. Critical care time was 35 minutes. I agree with the resident physician assessment and plan.
[2017-02-14] MEDS ORDERED: Vancomycin 1,250 MG in D5% in Water 250 ML IVPB ONE (16:17)
[2017-02-14] MEDS ORDERED: Levofloxacin 750 MG/150 ML 750 MG/150 ML BAG IVPB ONE (16:17)
[2017-02-14] MEDS ORDERED: Piperacillin/Tazobactam 3.375 GM in D5% in Water (Mini-Bag+) 100 ML IVPB ONE (16:17)
--- NOTE | 2017-02-14 16:31 | Cardiology Consult Note ---
Date of Encounter: 02/14/17 Time of Encounter: 16:00 Assessment and Plan (1) Elevated troponin Current Visit: Yes Status: Acute T[facility] Repeat troponin here is 0.03. Non-diagnostic for OH in the setting of recent OH with troponin as high as 1.88. Patient also being worked up for sepsis. Possible PNA on CXR. EKG reviewed with Dr. Winchester. ST changes may be secondary to tachycardia, demand ischemia. Will check limited TTE. Heparin gtt initially ordered. Now that troponin is negative we will discontinue. Continue asa, statin, and bb. (2) CAD (coronary artery disease) Current Visit: Yes Status: Acute LHC 02/05/17 showed single vessel CAD, successful BMS in 1st marginal. DAPT (ASA and Plavix) x 1 month uninterrupted was recommended. Continue Statin , BB. TTE 09/22/2016: LVEF 60-65%. Mild concentric LVH. Mild diastolic dysfunction. Heavily calcified aortic valve with reduced mobility. Mild aortic regurgitation. Probable severe aortic stenosis (mean gradient 37 mm record, peak velocity 4.06 m/s, dimensionless index 0.22). RVSP not well obtained. Repeat echo ordered. Right femoral access site healing well. No bleeding, hematoma. Mild ecchymosis noted. Qualifiers: Coronary Disease-Associated Artery/Lesion type: [place] artery [place] vs. transplanted heart: [place] heart Associated angina: without angina Qualified Code(s): I25.10 - Atherosclerotic heart disease of [place] coronary artery without angina pectoris (3) Severe aortic stenosis Current Visit: No Status: Chronic Known severe aortic stenosis. He is scheduled to see Dr. Meehan at [facility] to continue to discuss TAVR. Discussion w patient/family: The assessment and plan as outlined above was discussed with the patient and/or family members who expressed understanding and agreement. All questions were answered. Thank you for involving us in the care of your patient. Please call with any questions. History of Present Illness Consult date: 02/14/17 Requesting physician: Kenny Harvey Consult reason: Abnormal EKG Chief complaint: N/V, altered mental status. History of present illness: Mr. Padilla is a 76 year old male with a past medical history significant for recent NSTEMI 02/06/17 with troponin as high as 1.88, s/p PCI to his OM1, severe aortic stenosis, recent treatment for neck cancer, DM type II, HTN, HLD, chronic anemia, and CKD stage III. [facility] presented to the [facility] with [facility] after he started feeling ill earlier today. He was riding a scooter through [employer] when he started feeling ill. He went to sit in the car and waited for his . When she found him he was vomiting yellow emesis and was very shaky. [facility] he became very drowsy. She states he had N/V with his OH one week ago. His initial workup revealed sinus tachycardia , HR 120, temperature was 100.0. WBC 13. Troponin was found to be 0.00 and then 0.14. Kidney function was stable. Hgb stable. He has chronic anemia. Hgb 8.0. His EKG showed sinus tachycardia, ST depression V5 and V6, LBBB. He was transferred to [facility] for further work-up. On my exam he remains drowsy. He slept through venous blood draws. When moving his left arm he moans. His is at his bedside. Past Med Surg Social Fam HX - Past Medical History Attestation: Yes The following information was validated with the patient. Medical history: arthritis, asthma, cancer, COPD, coronary artery disease, diabetes, hyperlipidemia, hypertension, myocardial infarction, valvular heart disease, other Psychiatric history: no psych history - Past Surgical History Surgical History: angioplasty/stent, cataract, cholecystectomy, other - Social History Smoking Status: Former smoker Smokeless Tobacco Status: No Alcohol use: none Drug use: none - Family History Mother Living Status: Hx Family Cardiac Disorders: Yes Hx Family Respiratory Disorders: No Hx Family Cancer: No Hx Family GI Disorders: No Hx Family Endocrine Disorder: No Hx Family Neuromuscular Disorders: No Hx Family Neurologic Disorders: No Hx Family HEENT Disorders: No Hx Family Autoimmune Disorders: No Medications and Allergies Finasteride [Proscar] 5 mg PO DAILY 06/06/15 [History] Pantoprazole Sodium [Protonix] 40 mg PO DAILY 02/21/16 [History] Cholecalciferol (D-3) [Vitamin D] 2,000 unit PO DAILY 05/30/16 [History] Docusate [Colace] 100 mg PO BID 05/30/16 [History] Ondansetron [Zofran] 4 mg PO Q8HR PRN #90 tablet 09/12/16 [Rx] Prochlorperazine Maleate [Compazine] 10 mg PO Q8HR PRN #90 tablet 09/12/16 [Rx] Promethazine [Phenergan] 25 mg PO Q8HR PRN #90 tablet 10/22/16 [Rx] Magic Mouthwash [Magic Mouthwash BLM] 10 ml PO QID PRN #240 ml 11/29/16 [Rx] HYDROcodone/Acet 7.5/325 mg [[place] 7.5-325 mg] 1 tab PO Q4H PRN #120 tablet [Rx] Gabapentin [Neurontin] 100 mg PO HS 02/04/17 [History] Lactose-Reduced Food/Fiber [Isosource 1.5 Percy Liquid] 250 ml GTUBE 6XD 02/04/17 [History] NIFEdipine XL (24 HR) [Procardia XL] 60 mg PO DAILY 02/04/17 [History] Polyethylene Glycol 3350 [MiraLAX Powder Bulk 17.9 Oz] 17 gm PO DAILY PRN [History] glipiZIDE [Glucotrol] 2.5 mg PO BIDWM 02/04/17 [History] Aspirin 81 mg PO DAILY 30 Days 02/07/17 [Rx] Clopidogrel [Plavix] 75 mg PO DAILY 30 Days 02/07/17 [Rx] Metoprolol [Lopressor] 25 mg PO BID 30 Days 02/07/17 [Rx] Nitroglycerin 0.4 mg SL Q5MIN PRN #0 tab.subl 02/07/17 [Rx] Atorvastatin [Lipitor] 30 mg PO HS 02/14/17 [History] Allergies No Known Allergies Allergy (Verified 11/08/16 19:45) All Systems Review: A 10-system review of systems was performed and is negative for pertinent findings except as documented above in the HPI. Physical Examination Vital Signs, Last 4 Hours Temp Pulse Resp BP Pulse Ox 02/14/17 16:06 117 20 123/65 97 02/14/17 15:21 94 02/14/17 15:14 98.3 F 121 20 131/87 94 General: Other (drowsy, difficult to arouse) HEENT: Atraumatic, Normocephaly, Mucus Membranes Moist Neck: No JVD, Normal carotid pulses Cardiac: Reg Rate and Rhythm, Normal S1 and S2, No Murmur, Other (sinus tachycardia) Lungs: Normal Breath Sounds, No Wheeze, Rales, Rhonchi Neuro: Other (unable to follow commands. ) Abdomen: Soft, Non-Tender Skin: No rashes noted on visualized skin Musculoskeletal: No Chest Wall Tenderness Extremities: No Clubbing, No Cyanosis, Normal Pulses, Other (1+ ankle edema) Results 02/14/17 16:10 02/14/17 16:10 Short CBC 02/14/17 Range/Units 16:10 WBC 17.4 H (4.3-11.1) K/mcL Hgb 8.0 L (12.9-16.9) g/dL Hct 24.8 L (37.5-50.1) % Plt Count 182 (140-400) K/mcL BMP 02/14/17 Range/Units Chest X-Ray 02/14/17 15:20 IMPRESSION: Increased bibasilar airspace disease, either atelectasis or pneumonia D/ / Misael Quintero MD / Misael Quinetro MD Interpreting Provider: Misael Quintero MD Head CT 02/14/17 15:22 IMPRESSION: No acute intracranial abnormality. Ethmoid and maxillary sinus inflammatory disease. D/ / Brandon Corrales MD / Brandon Corrales MD Interpreting Provider: Brandon Corrales MD 16:10 Sodium 134 L (136-145) mEq/L Potassium 4.5 (3.5-4.5) mEq/L Chloride 103 (98-109) mEq/L Carbon Dioxide 23 (19-29) mEq/L BUN 41 H (8-26) mg/dL Creatinine 1.40 H (0.72-1.25) mg/dL Glucose 112 H (70-99) mg/dL Calcium 8.9 (8.6-10.8) mg/dL Cardiac Enzymes 02/14/17 Range/Units 16:10 Troponin I 0.03 (0-0.03) ng/mL Liver Function 02/14/17 Range/Units 16:10 Total Bilirubin 0.8 (0.2-1.2) mg/dL Direct Bilirubin 0.4 (0.0-0.5) mg/dL AST 26 (5-34) Units/L ALT 39 (0-55) Units/L Alkaline Phosphatase 72 (38-126) Units/L Albumin 3.0 L (3.5-5.0) g/dL - Imaging and Cardiology Echo: report reviewed Cardiac cath: report reviewed - EKG Interpretation EKG results cardiology: personally reviewed Consult Discharge Plan - Plan [facility]Primary Care Provider[facility] -
[2017-02-14 16:32] LABS: Basophils % 0.1 %; Eosinophils # 0.1 K/mcL (0.0-0.6); Eosinophils % 0.3 %; Hematocrit 24.8 % (37.5-50.1); Immature Granulocytes % 0.5 % (0-4); Lymphocytes # 0.3 K/mcL (0.6-4.6); Lymphocytes % 1.5 %; Mean Corpuscular HGB Conc 32.3 g/dL (31.6-35.5); Mean Corpuscular Hemoglobin 29.4 pg (28.0-33.3); Mean Corpuscular Volume 91.2 fL (83.0-100.0); Mean Platelet Volume 9.5 fL (9.4-12.4); Monocytes # 0.7 K/mcL (0.0-1.3); Neutrophils # 16.3 K/mcL (1.6-8.9); Platelet Count 182 K/mcL (140-400); Red Blood Count 2.72 M/mcL (4.19-5.50); Red Cell Distribution Width 13.9 % (11.5-14.5); Segmented Neutrophils % 93.6 %
[2017-02-14 16:37] LABS: INR 1.3; Prothrombin Time 13.9 Seconds (9.4-12.1)
[2017-02-14 16:40] LABS: Activated Partial Thrombo Time 28.6 Seconds (26.0-36.0)
[2017-02-14 16:45] LABS: Alanine Aminotransferase 39 Units/L (0-55); Albumin/Globulin Ratio 0.8 (1.1-2.2); Alkaline Phosphatase 72 Units/L (38-126); Aspartate Amino Transferase 26 Units/L (5-34); BUN/Creatinine Ratio 29 (6-26); Bilirubin,Direct 0.4 mg/dL (0.0-0.5); Bilirubin,Indirect 0.4 mg/dL (0.0-1.2); Bilirubin,Total 0.8 mg/dL (0.2-1.2); Blood Urea Nitrogen 41 mg/dL (8-26); Calcium 8.9 mg/dL (8.6-10.8); Carbon Dioxide 23 mEq/L (19-29); Chloride 103 mEq/L (98-109); Ethanol < 10 mg/dL (0-10); Globulin 3.7 g/dL (2.4-3.5); Glucose 112 mg/dL (70-99); Osmolality,Calculated 289 (280-300); Potassium 4.5 mEq/L (3.5-4.5); Sodium 134 mEq/L (136-145); Total Protein 6.7 g/dL (6.0-8.3); eGFR For African Americans 60 (> 60); eGFR For Non-African Americans 49 (> 60)
[2017-02-14] MEDS ORDERED: *HR* Heparin 5,000 UNIT/ML VIAL IVP PRN ×2 (16:47)
[2017-02-14] MEDS ORDERED: Heparin 25,000 UNIT/500 ML D5W 25,000 UNIT/500 ML MLS IVC SCH (17:00)
[2017-02-14 17:06] LABS: Hypochromasia Present (Not Present)
[2017-02-14 17:11] LABS: Magnesium 1.6 mg/dL (1.6-2.6); Phosphorous 2.6 mg/dL (2.3-4.7)
[2017-02-14] MEDS: *HR* Heparin 5,000 UNIT/ML VIAL IVP ONE ×2 (18:18→18:20)
[2017-02-14 18:42] LABS: Bilirubin,Urine Negative (Negative); Blood,Urine Negative (Negative); Clarity,Urine Clear (Clear); Color,Urine Yellow (Yellow); Glucose,Urine (UA) Normal (Normal); Ketones,Urine Negative (Negative); Leukocyte Esterase,Urine Small (Negative); Nitrite,Urine Negative (Negative); PH,Urine 6.5 pH Units (5.0-8.0); Protein,Urine Negative (Neg-Trace); Specific Gravity,Urine 1.016 (1.010-1.025); Urobilinogen,Urine Normal (Normal)
[2017-02-14 18:50] LABS: Amphetamine Screen,Urine Negative ng/mL (Cutoff=1000); Barbiturate Screen,Urine Negative ng/mL (Cutoff=200); Benzodiazepines Screen,Urine Negative ng/mL (Cutoff=200); Cannabinoid Screen,Urine Negative ng/mL (Cutoff = 50); Cocaine Screen,Urine Negative ng/mL (Cutoff= 300); Opiate Screen,Urine Positive ng/mL (Cutoff=300); Phencyclidine Screen,Urine Negative ng/mL (Cutoff=25)
[2017-02-14 18:53] LABS: Bacteria,Urine Few per hpf (None-Few); Hyaline Casts,Urine None Seen per lpf (None-Few); RBC,Urine 0-3 per hpf (0-3); Squamous Epithelial Cell,Urine Many per lpf (None-Few)
--- NOTE | 2017-02-14 23:48 | Internal Med History&Physical ---
Date of Encounter: 02/14/17 Time of Encounter: 23:48 Assessment and Plan (1) Pneumonia Current visit: Yes Status: Acute Chest x-ray reports bibasilar pneumonia. Treat for healthcare associated pneumonia with vancomycin, Zosyn, levofloxacin. Qualifiers: Pneumonia type: due to unspecified organism Laterality: bilateral Lung location: lower lobe of lung Qualified Code(s): J18.9 - Pneumonia, unspecified organism (2) Sepsis Current visit: Yes Status: Acute Likely related to pneumonia. Lactate is not elevated. Treat with antibiotics, IV fluids Qualifiers: Sepsis type: sepsis due to unspecified organism Qualified Code(s): A41.9 - Sepsis, unspecified organism (3) Altered mental status Current visit: Yes Status: Acute Possibly secondary to pneumonia. Supportive care. Qualifiers: Altered mental status type: unspecified Qualified Code(s): R41.82 - Altered mental status, unspecified (4) Diabetes mellitus Current visit: Yes Status: Chronic Sliding scale insulin Qualifiers: Diabetes mellitus type: type 2 Diabetes mellitus complication status: with kidney complications Diabetes mellitus complication detail: with nephropathy Diabetes mellitus long term care social worker insulin use: without usp use Qualified Code(s): E11.21 - Type 2 diabetes mellitus with diabetic nephropathy (5) Hypertension Current visit: Yes Status: Chronic Continue home medications. Qualifiers: Hypertension type: essential hypertension Qualified Code(s): I10 - Essential (primary) hypertension (6) Anemia Current visit: Yes Status: Chronic Chronic anemia. Monitor H&H. Check fecal occult blood. Labs from October 2016 showed anemia of chronic disease. Vitamin B12 level was borderline low. Will recheck Vitamin B12 level and consider replacement. Type and screen. Qualifiers: Anemia type: unspecified type Qualified Code(s): D64.9 - Anemia, unspecified (7) Aortic stenosis Current visit: Yes Status: Chronic Pt follows up with cardiology at [facility] (? 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 Follows with oncologist. (10) CKD (chronic kidney disease) stage 3, GFR 30-59 ml/min Current visit: Yes Status: Chronic Monitor renal function. Avoid nephrotoxics. (11) G tube feedings Current visit: Yes Status: Chronic Consult nutrition team for PEG feeds. He takes oral feeds as well - mechanical soft diet and thin liquids per the patient (12) CAD (coronary artery disease) Current visit: Yes Status: Chronic Qualifiers: Coronary Disease-Associated Artery/Lesion type: [place] artery [place] vs. transplanted heart: [place] heart Associated angina: without angina Qualified Code(s): I25.10 - Atherosclerotic heart disease of [place] coronary artery without angina pectoris Internal Medicine - H&P: HPI Chief complaint: Confusion Admitted From: Hospital to Hospital Transfer History of present illness: Mr. Padilla is a 76 year old male with past medical history significant for diabetes mellitus, hypertension, coronary artery disease status post stents, COPD, history of aortic stenosis --follows up with cardiology at [facility] (? 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 He was admitted to this hospital on 02/04/2017, with NSTEMI and had LHC / stent placed to [facility]. He apparently was confused / AMS since 1 PM and was taken to urgent care at [facility]. He apparently c/o nausea, vomiting x 4 and fatigue and was noted to be drowsy. He was evaluated at [facility] and was noted to have elevation of troponin (? 0.14) and elevated WBC based on the notes sent from the [facility], I am not sure the time of the test. He was given IV fluids, Tylenol, Nitropaste and Rocephin prior to transfer to [facility]. Pt was sent to the ER at [facility]. EKG showed sinus tachycardia and LBBB and repeat troponin was 0.03. Pt was seen by Cardiology team. CXR reported Increased bibasilar airspace disease, either atelectasis or pneumonia. Pt was given IV fluids, levofloxacin, Zosyn and vancomycin. His admitted to hospitalist service for further workup and management. Patient is confused at times my evaluation. The patient's at the bedside. Patient denies chest pain, significant shortness of breath. He has some mucoid sputum production. He denies abdominal pain, dysuria, hematuria , fever, chills. Past Med Surg Social Fam HX - Past Medical History Medical history: arthritis, asthma, cancer, COPD, coronary artery disease, diabetes, hyperlipidemia, hypertension, myocardial infarction, valvular heart disease, other Psychiatric history: no psych history - Past Surgical History Surgical History: angioplasty/stent, cataract, cholecystectomy, other - Social History Smoking Status: Former smoker Smokeless Tobacco Status: No Alcohol use: none Drug use: none - Family History Mother Living Status: Hx Family Cardiac Disorders: Yes Hx Family Respiratory Disorders: No Hx Family Cancer: No Hx Family GI Disorders: No Hx Family Endocrine Disorder: No Hx Family Neuromuscular Disorders: No Hx Family Neurologic Disorders: No Hx Family HEENT Disorders: No Hx Family Autoimmune Disorders: No Internal Medicine - H&P: Meds Finasteride [Proscar] 5 mg PO DAILY 06/06/15 [History] Pantoprazole Sodium [Protonix] 40 mg PO DAILY 02/21/16 [History] Cholecalciferol (D-3) [Vitamin D] 2,000 unit PO DAILY 05/30/16 [History] Docusate [Colace] 100 mg PO BID 05/30/16 [History] Ondansetron [Zofran] 4 mg PO Q8HR PRN #90 tablet 09/12/16 [Rx] Prochlorperazine Maleate [Compazine] 10 mg PO Q8HR PRN #90 tablet 09/12/16 [Rx] Promethazine [Phenergan] 25 mg PO Q8HR PRN #90 tablet 10/22/16 [Rx] Magic Mouthwash [Magic Mouthwash BLM] 10 ml PO QID PRN #240 ml 11/29/16 [Rx] HYDROcodone/Acet 7.5/325 mg [[place] 7.5-325 mg] 1 tab PO Q4H PRN #120 tablet [Rx] Gabapentin [Neurontin] 100 mg PO HS 02/04/17 [History] Lactose-Reduced Food/Fiber [Isosource 1.5 Percy Liquid] 250 ml GTUBE 6XD 02/04/17 [History] NIFEdipine XL (24 HR) [Procardia XL] 60 mg PO DAILY 02/04/17 [History] Polyethylene Glycol 3350 [MiraLAX Powder Bulk 17.9 Oz] 17 gm PO DAILY PRN [History] glipiZIDE [Glucotrol] 2.5 mg PO BIDWM 02/04/17 [History] Aspirin 81 mg PO DAILY 30 Days 02/07/17 [Rx] Clopidogrel [Plavix] 75 mg PO DAILY 30 Days 02/07/17 [Rx] Metoprolol [Lopressor] 25 mg PO BID 30 Days 02/07/17 [Rx] Nitroglycerin 0.4 mg SL Q5MIN PRN #0 tab.subl 02/07/17 [Rx] Atorvastatin [Lipitor] 40 mg PO HS 02/14/17 [History] Terazosin [Hytrin] 5 mg PO HS 02/14/17 [History] Allergies No Known Allergies Allergy (Verified 11/08/16 19:45) All Systems PM: A 10-system review of systems was performed and is negative for pertinent findings except as documented above in the HPI. - Constitutional Vitals: Temp Pulse Resp BP Pulse Ox 97.9 F 91 18 107/60 95 02/14/17 20:11 02/14/17 20:11 02/14/17 20:11 02/14/17 20:11 02/14/17 20:11 Exam: General: Not in acute distress at the time of my evaluation. Somnolent but arousable HEENT: Oral mucosa is dry. No conjunctival palor or scleral icterus Neck: There is scar on the right side of the neck Lungs: Clear to auscultation Cardiac: Regular rate and rhythm. Systolic murmur suggestive of aortic stenosis Abdomen: Soft, non tender. Bowel sounds present. PEG tube in place Genitourinary: No mayes catheter Neurological: Somnolent but arousable Psych: Not aggressive or agitated Extremities: no significant leg edema Skin: No generalized rash Internal Med - H&P Results - Labs CBC & Chem 7: 02/15/17 08:21 02/15/17 02:46 Labs: Urine 02/14/17 Range/Units 18:35 Urine Color Yellow (Yellow) Urine Clarity Clear (Clear) Urine pH 6.5 (5.0-8.0) pH Units Ur Specific [place] 1.016 (1.010-1.025) Urine Protein Negative (Neg-Trace) mg/dL Urine Glucose (UA) Normal (Normal) mg/dL - EKG Data -: EKG Interpreted by Myself EKG shows normal: sinus rhythm Rate: tachycardia - EKG Data EKG comments: New LBBB 02/15/17 08:26 - Impressions ITS Impressions Chest X-Ray 02/14/17 15:20 IMPRESSION: Increased bibasilar airspace disease, either atelectasis or pneumonia D/ / Misael Quintero MD / Misael Quintero MD Interpreting Provider: Misael Quintero MD Head CT 02/14/17 15:22 IMPRESSION: No acute intracranial abnormality. Ethmoid and maxillary sinus inflammatory disease. D/ / Brandon Corrales MD / Brandon Corrales MD Interpreting Provider: Brandon Corrales MD
[2017-02-15] MEDS ORDERED: Naloxone 0.4 MG/ML INJ IVP PRN (01:53)
[2017-02-15] MEDS ORDERED: D5% in Water 1,000 ML IVC PRN (01:56)
[2017-02-15] MEDS ORDERED: Dextrose Gel 15 GM PO PRN ×2 (01:56)
[2017-02-15] MEDS ORDERED: *HR* Dextrose 50 % in Water (Syg) 50 ML SYRINGE IVP PRN (01:56)
[2017-02-15 03:01] LABS: Basophils % 0.1 %; Mean Platelet Volume 9.4 fL (9.4-12.4)
[2017-02-15 03:03] LABS: Hematocrit 23.6 % (37.5-50.1); Hemoglobin 7.6 g/dL (12.9-16.9); Immature Granulocytes % 1.2 % (0-4); Lymphocytes # 0.8 K/mcL (0.6-4.6); Lymphocytes % 2.7 %; Mean Corpuscular HGB Conc 32.2 g/dL (31.6-35.5); Mean Corpuscular Hemoglobin 29.5 pg (28.0-33.3); Mean Corpuscular Volume 91.5 fL (83.0-100.0); Monocytes # 1.5 K/mcL (0.0-1.3); Monocytes % 5.2 %; Neutrophils # 25.3 K/mcL (1.6-8.9); Platelet Count 190 K/mcL (140-400); Red Blood Count 2.58 M/mcL (4.19-5.50); Segmented Neutrophils % 90.8 %
[2017-02-15 03:14] LABS: Magnesium 1.9 mg/dL (1.6-2.6); Potassium 5.1 mEq/L (3.5-4.5)
[2017-02-15 03:49] LABS: Hypochromasia Present (Not Present); Platelet Estimate Normal (Normal)
[2017-02-15] MEDS ORDERED: *HR* Heparin 5,000 UNIT/ML VIAL IVP PRN ×3 (04:09→09:22)
[2017-02-15] MEDS ORDERED: *HR* Heparin 5,000 UNIT/ML VIAL IVP ONE ×2 (04:09→09:22)
[2017-02-15] MEDS ORDERED: Nitroglycerin 0.4 MG TAB.SUBL SL PRN (04:11)
[2017-02-15] MEDS ORDERED: Heparin 25,000 UNIT/500 ML D5W 25,000 UNIT/500 ML MLS IVC SCH (04:15)
[2017-02-15] MEDS: Heparin 25,000 UNIT/500 ML D5W 25,000 UNIT/500 ML MLS IVC SCH (05:06)
[2017-02-15] MEDS: 0.9 % Sodium Chloride 1,000 ML IVC SCH ×2 (05:06→17:03)
[2017-02-15 08:29] LABS: Hematocrit 23.1 % (37.5-50.1); Hemoglobin 7.7 g/dL (12.9-16.9); Mean Corpuscular HGB Conc 33.3 g/dL (31.6-35.5); Mean Corpuscular Hemoglobin 30.3 pg (28.0-33.3); Mean Corpuscular Volume 90.9 fL (83.0-100.0); Mean Platelet Volume 9.2 fL (9.4-12.4); Platelet Count 174 K/mcL (140-400); Red Blood Count 2.54 M/mcL (4.19-5.50); Red Cell Distribution Width 14.3 % (11.5-14.5)
[2017-02-15 08:36] LABS: INR 1.5; Prothrombin Time 16.6 Seconds (9.4-12.1)
[2017-02-15] MEDS: Insulin LISPRO 300 UNITS/3 ML VIAL SQ SCH ×4 (08:36→21:34)
[2017-02-15] MEDS: Piperacillin/Tazobactam 3.375 GM in D5% in Water (Mini-Bag+) 100 ML IVPB SCH ×2 (08:40→17:06)
[2017-02-15] MEDS: Aspirin 81 MG TAB.CHEW PO SCH (08:40)
[2017-02-15 08:41] LABS: Activated Partial Thrombo Time 60.7 Seconds (26.0-36.0)
[2017-02-15] MEDS ORDERED: Vancomycin 1,250 MG in D5% in Water 250 ML IVPB SCH (09:00)
--- NOTE | 2017-02-15 09:19 | Internal Med Progress Note ---
<Sandip Broderick - Last Filed: 02/15/17 13:28> Date of Encounter: 02/15/17 Time of Encounter: 09:19 - Assessment and plan (1) Sepsis Current Visit: No Status: Acute Assessment and plan: Leukocytosis, initially tachypnea and tachycardia, possible sources is underlying pneumonia but clinically he does not fit that picture, patient has been constipated for more than a week, hyperactive bowel sounds, will obtain CT scan of the abdomen/pelvis and chest for further assessment, lactic acid level was normal, continued IV antibiotics of vancomycin and Zosyn, blood culture/ urine culture are pending. Qualifiers: Qualified Code(s): A41.9 - Sepsis, unspecified organism (2) Bacterial pneumonia Current Visit: Yes Status: Acute Assessment and plan: Patient was recently discharged from this hospital after about a week ago for NSTEMI, chest x-ray showed bibasilar airspace disease, concerning for pneumonia , and also with recent hospitalization, multidrug-resistant organisms are concern, he was started on vancomycin and Zosyn IV, blood cultures are pending. (3) Elevated troponin Current Visit: No Status: Acute Assessment and plan: Cardiology is on board, recommended continuing heparin drip for 48 hours, and they will check limited echo, no active chest pain at this time. NSTEMI versus demand ischemia in the setting of sepsis. (4) Severe aortic stenosis Current Visit: No Status: Chronic Assessment and plan: Patient is scheduled to see Dr. Meehan at [facility] to continue to discuss TAVR. (5) CAD (coronary artery disease) Current Visit: No Status: Acute Assessment and plan: [facility] 02/05/17 showed single vessel CAD, successful BMS in 1st marginal, DAPT x 1 month uninterrupted, continue Statin, BB. Qualifiers: Coronary Disease-Associated Artery/Lesion type: [place] artery [place] vs. transplanted heart: [place] heart Associated angina: without angina Qualified Code(s): I25.10 - Atherosclerotic heart disease of [place] coronary artery without angina pectoris (6) Nasopharyngeal cancer Current Visit: Yes Status: Acute Assessment and plan: Patient sees Dr. Crow and Dr. Paul in [facility], currently he is not getting any treatment. Outpatient highway administrative engineer/oncologist follow-up. (7) DVT prophylaxis Current Visit: No Status: Acute Assessment and plan: Heparin drip. - Subjective Interval history: Patient seen and examined. Patient's daughter was at the bedside, she states that patient's current mental status is better than yesterday but still somewhat confused, patient is alert and oriented 3 but he was somewhat confused about time, patient states that he has been constipated for more than a week, this is unusual for him, no active chest pain or shortness of breath. Whitish sputum production since few days ago. - Constitutional Vitals: Temp Pulse Resp BP Pulse Ox 97.8 F 79 15 126/64 98 02/15/17 07:29 02/15/17 07:29 02/15/17 07:29 02/15/17 07:29 02/15/17 07:29 General appearance: Present: cooperative, A&O X 3, pleasant, no acute distress, answers questions appropriately - Head Head exam: Present: atraumatic, normocephalic - Eye Eye exam: Present: PERRL, conjuntiva pink, sclera anicteric Pupils: Present: PERRL - Neck Neck exam general surgery: Present: supple, trachea midline. Absent: lymphadenopathy - Respiratory Respiratory exam: Present: CTAB. Absent: accessory muscle use, rales, rhonchi, wheezes - Cardiovascular Cardiovascular exam: Present: RRR, +S1, +S2, systolic murmur. Absent: diastolic murmur, gallop, rubs - GI/Abdominal GI/Abdominal exam: Present: hypoactive bowel sounds, soft. Absent: distended, firm, guarding, rebound, rigid, tenderness Additional comments: PEG tube in place - Extremities Exam Extremities exam: Present: warm, radial pulses palpable and symetrical. Absent : calf tenderness, cyanotic, pedal edema - Neurological Exam Neurological exam: Present: CN II-XII intact, oriented X3, no focal deficits. Absent: pronater drift, facial droop, speech deficit - Skin Skin exam: Present: dry, intact Internal Medicine: Result - Labs CBC & Chem 7: 02/15/17 08:21 02/15/17 02:46 Labs: Short CBC 02/15/17 02/15/17 Range/Units 02:46 08:21 WBC 27.9 H D 22.9 H (4.3-11.1) K/mcL Hgb 7.6 L 7.7 L (12.9-16.9) g/dL Hct 23.6 L 23.1 L (37.5-50.1) % Plt Count 190 174 (140-400) K/mcL Neutrophils # 25.3 H (1.6-8.9) K/mcL BMP 02/15/17 02:46 Sodium 135 L Potassium 5.1 H Chloride 103 Carbon Dioxide 24 BUN 37 H Creatinine 1.58 H Glucose 121 H Calcium 9.0 Cardiac Enzymes 02/15/17 02/15/17 Range/Units 02:46 08:21 Troponin I 2.22 H* 2.83 H* (0-0.03) ng/mL Urine 02/14/17 Range/Units 18:35 Urine Color Yellow (Yellow) Urine Clarity Clear (Clear) Urine pH 6.5 (5.0-8.0) pH Units Ur Specific [place] 1.016 (1.010-1.025) Urine Protein Negative (Neg-Trace) mg/dL Urine Glucose (UA) Normal (Normal) mg/dL - ABG Interpretation ABG results: PT/INR, D-dimer PT 16.6 Seconds (9.4-12.1) H 02/15/17 08:21 Consult Discharge Plan - Plan [facility]errals: [facility]Primary Care Provider] - <Noam Osorio - Last Filed: 02/15/17 15:47> Date of Encounter: 02/15/17 - Constitutional Vitals: Temp Pulse Resp BP Pulse Ox 98 F 70 12 114/64 98 02/15/17 11:41 02/15/17 11:41 02/15/17 11:41 02/15/17 11:41 02/15/17 11:41 Internal Medicine: Result - Labs CBC & Chem 7: 02/15/17 08:21 02/15/17 02:46 Labs: Short CBC 02/15/17 02/15/17 Range/Units 02:46 08:21 WBC 27.9 H D 22.9 H (4.3-11.1) K/mcL Hgb 7.6 L 7.7 L (12.9-16.9) g/dL Hct 23.6 L 23.1 L (37.5-50.1) % Plt Count 190 174 (140-400) K/mcL Neutrophils # 25.3 H (1.6-8.9) K/mcL BMP 02/15/17 02:46 Sodium 135 L Potassium 5.1 H Chloride 103 Carbon Dioxide 24 BUN 37 H Creatinine 1.58 H Glucose 121 H Calcium 9.0 Cardiac Enzymes 02/15/17 02/15/17 Range/Units 02:46 08:21 Troponin I 2.22 H* 2.83 H* (0-0.03) ng/mL Urine 02/14/17 Range/Units 18:35 Urine Color Yellow (Yellow) Urine Clarity Clear (Clear) Urine pH 6.5 (5.0-8.0) pH Units Ur Specific [place] 1.016 (1.010-1.025) Urine Protein Negative (Neg-Trace) mg/dL Urine Glucose (UA) Normal (Normal) mg/dL - ABG Interpretation ABG results: PT/INR, D-dimer PT 16.6 Seconds (9.4-12.1) H 02/15/17 08:21 - Attending Attestation I saw and examined pt. I have discussed with Resident Dr Broderick regarding pt's management plan. I agree with the documentation. Pt's mental status has improved. Denies CP. Cont abx for pneumonia. CT abd to r/ o intraabd infection. Cardio consult appreciated, recommendation will be followed.
--- NOTE | 2017-02-15 10:46 | Cardiology Progress Note ---
Date of Encounter: 02/15/17 Time of Encounter: 10:44 Assessment and Plan (1) Elevated troponin Current Visit: Yes Status: Acute Troponin found to be mildly elevated at 0.00, 0.14, 0.03, 2.22 in the setting of possible sepsis, recent NSTEMI, and known severe aortic stenosis. ST depression seen on initial EKG now resolved with improvement in HR. Heparin gtt started last night. He denies chest pain. he is more alert today. Will check limited TTE. If no change in LV function continue medical management. Currently not a candidate for cardiac rehab in the setting of medical management and he is pending treatment of his severe aortic stenosis. Continue asa, statin, and bb. Continue heparin gtt for 48 hours. (2) CAD (coronary artery disease) Current Visit: Yes Status: Chronic LHC 02/05/17 showed single vessel CAD, successful BMS in 1st marginal. Mild disease remaining. DAPT (ASA and Plavix) x 1 month uninterrupted was recommended. Continue Statin , BB. TTE 09/22/2016: LVEF 60-65%. Mild concentric LVH. Mild diastolic dysfunction. Heavily calcified aortic valve with reduced mobility. Mild aortic regurgitation. Probable severe aortic stenosis (mean gradient 37 mm record, peak velocity 4.06 m/s, dimensionless index 0.22). RVSP not well obtained. Repeat echo ordered. Right femoral access site healing well. No bleeding, hematoma. Mild ecchymosis noted. Qualifiers: Coronary Disease-Associated Artery/Lesion type: [place] artery [place] vs. transplanted heart: [place] heart Associated angina: without angina Qualified Code(s): I25.10 - Atherosclerotic heart disease of [place] coronary artery without angina pectoris (3) Severe aortic stenosis Current Visit: No Status: Chronic Known severe aortic stenosis. He is scheduled to see Dr. Meehan at [facility] to continue to discuss TAVR. Discussion w patient/family: The assessment and plan as outlined above was discussed with the patient and/or family members who expressed understanding and agreement. All questions were answered. Thank you for involving us in the care of your patient. Please call with any questions. Subjective Principal diagnosis: Sepsis, elevated troponin Interval history: Mr. Padilla is now alert. Daughter is at bedside. He denies chest pain or SOB. Denies recurrent nausea. Objective Vital Signs, Last 4 Hours Temp Pulse Resp BP Pulse Ox 02/15/17 07:29 97.8 F 79 15 126/64 98 General: Conversant, No Apparent Distress HEENT: Atraumatic, Normocephaly, Mucus Membranes Moist Neck: No JVD, Normal carotid pulses Cardiac: Reg Rate and Rhythm, Normal S1 and S2, No Murmur Lungs: Normal Breath Sounds, No Wheeze, Rales, Rhonchi Neuro: Alert and responsive, No focal deficits noted Abdomen: Soft, Non-Tender Skin: No rashes noted on visualized skin Musculoskeletal: No Chest Wall Tenderness Extremities: No Clubbing, No Cyanosis, Normal Pulses, Other (trace edema bilateral ankles.) Results 02/15/17 08:21 02/15/17 02:46 Lab Results 02/15/17 02/15/17 02/15/17 02:46 02:46 02:46 WBC 27.9 H D Hgb 7.6 L Hct 23.6 L Plt Count 190 INR APTT Sodium 135 L Potassium 5.1 H Chloride 103 Carbon Dioxide 24 BUN 37 H Creatinine 1.58 H Glucose 121 H Calcium 9.0 Magnesium 1.9 Troponin I 2.22 H* 02/15/17 02/15/17 02/15/17 08:21 08:21 08:21 WBC 22.9 H Hgb 7.7 L Hct 23.1 L Plt Count 174 INR 1.5 APTT 60.7 H D Sodium Potassium Chloride Carbon Dioxide BUN Creatinine Glucose Calcium Magnesium Troponin I 2.83 H* - EKG Interpretation EKG results cardiology: personally reviewed (Repeat EKG today shows resolution of ST depression seen on initial EKG during tachycardia.) Consult Discharge Plan - Plan [facility]errals: [facility] [Primary Care Provider] -
[2017-02-15] MEDS: Lactobacillus 1 EACH CAP.SPRINK GTUBE SCH ×2 (12:56→21:34)
[2017-02-15] MEDS ORDERED: Vancomycin 1,500 MG in D5% in Water 250 ML IVPB SCH (13:00)
[2017-02-15] MEDS ORDERED: Aminoglycoside Consult 1 EACH MC ONE (14:15)
[2017-02-15] MEDS: *HR* Heparin 5,000 UNIT/ML VIAL IVP PRN (15:31)
[2017-02-15] MEDS ORDERED: *HR* Heparin 5,000 UNIT/ML VIAL SQ SCH (18:00)
[2017-02-16] MEDS: Piperacillin/Tazobactam 3.375 GM in D5% in Water (Mini-Bag+) 100 ML IVPB SCH ×4 (00:29→23:53)
[2017-02-16] MEDS: 0.9 % Sodium Chloride 1,000 ML IVC SCH (03:28)
[2017-02-16] MEDS: Heparin 25,000 UNIT/500 ML D5W 25,000 UNIT/500 ML MLS IVC SCH (04:21)
[2017-02-16] MEDS ORDERED: *HR* HYDROcodone/Acet 7.5/325 mg TABLET PO ONE (04:56)
[2017-02-16 05:45] LABS: Basophils % 0.2 %; Eosinophils # 0.3 K/mcL (0.0-0.6); Eosinophils % 2.4 %; Hemoglobin 7.3 g/dL (12.9-16.9); Immature Granulocytes % 0.4 % (0-4); Lymphocytes # 0.5 K/mcL (0.6-4.6); Lymphocytes % 4.5 %; Mean Corpuscular HGB Conc 31.7 g/dL (31.6-35.5); Mean Corpuscular Hemoglobin 29.8 pg (28.0-33.3); Mean Corpuscular Volume 93.9 fL (83.0-100.0); Mean Platelet Volume 9.7 fL (9.4-12.4); Monocytes # 0.5 K/mcL (0.0-1.3); Monocytes % 4.8 %; Neutrophils # 9.6 K/mcL (1.6-8.9); Platelet Count 189 K/mcL (140-400); Red Blood Count 2.45 M/mcL (4.19-5.50); Red Cell Distribution Width 14.1 % (11.5-14.5); Segmented Neutrophils % 87.7 %
[2017-02-16 06:05] LABS: BUN/Creatinine Ratio 23 (6-26); Blood Urea Nitrogen 31 mg/dL (8-26); Calcium 8.7 mg/dL (8.6-10.8); Carbon Dioxide 22 mEq/L (19-29); Chloride 108 mEq/L (98-109); Glucose 172 mg/dL (70-99); Osmolality,Calculated 299 (280-300); Potassium 4.5 mEq/L (3.5-4.5); Sodium 139 mEq/L (136-145); eGFR For African Americans > 60 (> 60); eGFR For Non-African Americans 51 (> 60)
[2017-02-16] MEDS: *HR* Heparin 5,000 UNIT/ML VIAL IVP PRN (06:15)
[2017-02-16] MEDS: Lactobacillus 1 EACH CAP.SPRINK GTUBE SCH ×2 (07:56→20:02)
[2017-02-16] MEDS: Insulin LISPRO 300 UNITS/3 ML VIAL SQ SCH ×4 (07:56→20:38)
[2017-02-16] MEDS: Aspirin 81 MG TAB.CHEW PO SCH (07:57)
--- NOTE | 2017-02-16 10:25 | Internal Med Progress Note ---
<Sandip Broderick - Last Filed: 02/16/17 10:23> Date of Encounter: 02/16/17 Time of Encounter: 10:23 - Assessment and plan (1) Sepsis Current Visit: No Status: Acute Assessment and plan: Resolved, Leukocytosis improved, initially tachypnea and tachycardia, possible sources is underlying pneumonia, CT scan of the abdomen/pelvis show acute process, CT scan of the chest suggested a possible underlying pneumonia, will continue antibiotic of Zosyn IV, will stop vancomycin since blood culture has been negative. Qualifiers: Qualified Code(s): A41.9 - Sepsis, unspecified organism (2) Bacterial pneumonia Current Visit: Yes Status: Acute Assessment and plan: Patient was recently discharged from this hospital after about a week ago for NSTEMI, CT scan of the chest showed possible underlying pneumonia, and also with recent hospitalization, multidrug-resistant organisms are concern, he was started on vancomycin and Zosyn IV, blood came back negative therefore we will stop vancomycin, sepsis resolved. (3) Chronic anemia Current Visit: Yes Status: Acute Assessment and plan: Hemoglobin this morning was 7.3, yesterday was 7.7, this could be delusional from IV normal saline fluid hydration, nonetheless patient has a history of coronary artery disease with recent NSTEMI, will give 1 unit of PRBC transfusion for the goal of more than 8, no signs of active bleeding, low iron level noted with recent lab, will start him on iron by mouth supplement, check hemoglobin level tomorrow morning. (4) Elevated troponin Current Visit: No Status: Acute Assessment and plan: Likely demand ischemia in the setting of sepsis, cardiology signed off, will stop heparin drip today. (5) Severe aortic stenosis Current Visit: No Status: Chronic Assessment and plan: Patient is scheduled to see Dr. Meehan at [facility] to continue to discuss TAVR. (6) CAD (coronary artery disease) Current Visit: No Status: Acute Assessment and plan: [facility] 02/05/17 showed single vessel CAD, successful BMS in 1st marginal, DAPT x 1 month uninterrupted, continue Statin, BB. Qualifiers: Coronary Disease-Associated Artery/Lesion type: [place] artery [place] vs. 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 Crow and Dr. Paul in [facility], currently he is not getting any treatment. Outpatient security technician/oncologist follow-up. (8) DVT prophylaxis Current Visit: No Status: Acute Assessment and plan: Heparin subcutaneous twice a day. - Subjective Interval history: Patient seen and examined. Patient states that he feels better than yesterday, no active chest pain or shortness of breath, no productive cough. Daughter at the bedside states that patient's mental status has improved, likely back to his baseline, patient had a bowel movement yesterday. - Constitutional Vitals: Temp Pulse Resp BP Pulse Ox 97.7 F 73 15 134/79 97 02/16/17 07:35 02/16/17 07:35 02/16/17 07:35 02/16/17 07:35 02/16/17 07:35 General appearance: Present: cooperative, A&O X 3, pleasant, no acute distress, answers questions appropriately - Head Head exam: Present: atraumatic, normocephalic - Eye Eye exam: Present: PERRL, conjuntiva pink, sclera anicteric Pupils: Present: PERRL - Neck Neck exam general surgery: Present: supple, trachea midline. Absent: lymphadenopathy - Respiratory Respiratory exam: Present: decreased breath sounds (Slightly diminished at base bilateral). Absent: accessory muscle use, rales, rhonchi, wheezes - Cardiovascular Cardiovascular exam: Present: RRR, +S1, +S2. Absent: diastolic murmur, gallop, rubs, systolic murmur - GI/Abdominal GI/Abdominal exam: Present: normal bowel sounds, soft, no peritoneal signs. Absent: distended, tenderness Additional comments: PEG tube in place - Extremities Exam Extremities exam: Present: warm, radial pulses palpable and symetrical. Absent : calf tenderness, cyanotic, pedal edema - Neurological Exam Neurological exam: Present: CN II-XII intact, oriented X3, no focal deficits. Absent: pronater drift, facial droop, speech deficit - Skin Skin exam: Present: dry, intact Internal Medicine: Result - Labs CBC & Chem 7: 02/16/17 04:58 02/16/17 04:58 Labs: Short CBC 02/16/17 Range/Units 04:58 WBC 10.9 D (4.3-11.1) K/mcL Hgb 7.3 L (12.9-16.9) g/dL Hct 23.0 L (37.5-50.1) % Plt Count 189 (140-400) K/mcL Neutrophils # 9.6 H (1.6-8.9) K/mcL BMP 02/16/17 04:58 Sodium 139 Potassium 4.5 Chloride 108 Carbon Dioxide 22 BUN 31 H Creatinine 1.37 H Glucose 172 H Calcium 8.7 Cardiac Enzymes 02/15/17 Range/Units 15:23 Troponin I 2.17 H* (0-0.03) ng/mL - ABG Interpretation ABG results: PT/INR, D-dimer PT 16.6 Seconds (9.4-12.1) H 02/15/17 08:21 - Impressions Impressions Abdomen/Pelvis CT 02/15/17 11:42 IMPRESSION: 1. There are scattered bilateral ground-glass and airspace opacities, which have worsened from the prior PET-CT from 02/13/2017, and is concerning for multifocal infectious process. 2. Redemonstration of high density material within the distal aspect of the CBD, which may represent retained gallstones. 3. Otherwise no acute findings within the abdomen or pelvis. Moderate stool burden is identified throughout the colon. No evidence of bowel obstruction. Normal appendix. 4. Stable prostatomegaly with mildly trabeculated dilated bladder. D/ /15/2017 17:20:12 Darwin Alvarez MD / [facility] Interpreting Provider: Darwin Alvarez MD Chest CT 02/15/17 11:42 IMPRESSION: 1. There are scattered bilateral ground-glass and airspace opacities, which have worsened from the prior PET-CT from 02/13/2017, and is concerning for multifocal infectious process. 2. Redemonstration of high density material within the distal aspect of the CBD, which may represent retained gallstones. 3. Otherwise no acute findings within the abdomen or pelvis. Moderate stool burden is identified throughout the colon. No evidence of bowel obstruction. Normal appendix. 4. Stable prostatomegaly with mildly trabeculated dilated bladder. D/ /15/2017 17:20:12 Darwin Alvarez MD / [facility] Interpreting Provider: Darwin Alvarez MD Consult Discharge Plan - Plan [facility]errals: [facility] [Primary Care Provider] - <Noam Osorio - Last Filed: 02/16/17 16:02> Date of Encounter: 02/16/17 - Constitutional Vitals: Temp Pulse Resp BP Pulse Ox 97.4 F L 62 18 149/79 96 02/16/17 15:07 02/16/17 15:07 02/16/17 15:07 02/16/17 15:07 02/16/17 15:07 Internal Medicine: Result - Labs CBC & Chem 7: 02/16/17 04:58 02/16/17 04:58 Labs: Short CBC 02/16/17 Range/Units 04:58 WBC 10.9 D (4.3-11.1) K/mcL Hgb 7.3 L (12.9-16.9) g/dL Hct 23.0 L (37.5-50.1) % Plt Count 189 (140-400) K/mcL Neutrophils # 9.6 H (1.6-8.9) K/mcL BMP 02/16/17 04:58 Sodium 139 Potassium 4.5 Chloride 108 Carbon Dioxide 22 BUN 31 H Creatinine 1.37 H Glucose 172 H Calcium 8.7 Cardiac Enzymes 02/15/17 Range/Units 15:23 Troponin I 2.17 H* (0-0.03) ng/mL - ABG Interpretation ABG results: PT/INR, D-dimer PT 16.6 Seconds (9.4-12.1) H 02/15/17 08:21 - Impressions Impressions Abdomen/Pelvis CT 02/15/17 11:42 IMPRESSION: 1. There are scattered bilateral ground-glass and airspace opacities, which have worsened from the prior PET-CT from 02/13/2017, and is concerning for multifocal infectious process. 2. Redemonstration of high density material within the distal aspect of the CBD, which may represent retained gallstones. 3. Otherwise no acute findings within the abdomen or pelvis. Moderate stool burden is identified throughout the colon. No evidence of bowel obstruction. Normal appendix. 4. Stable prostatomegaly with mildly trabeculated dilated bladder. D/ /15/2017 17:20:12 Darwin Alvarez MD / [facility] Interpreting Provider: Darwin Alvarez MD Chest CT 02/15/17 11:42 IMPRESSION: 1. There are scattered bilateral ground-glass and airspace opacities, which have worsened from the prior PET-CT from 02/13/2017, and is concerning for multifocal infectious process. 2. Redemonstration of high density material within the distal aspect of the CBD, which may represent retained gallstones. 3. Otherwise no acute findings within the abdomen or pelvis. Moderate stool burden is identified throughout the colon. No evidence of bowel obstruction. Normal appendix. 4. Stable prostatomegaly with mildly trabeculated dilated bladder. D/ /15/2017 17:20:12 Darwin Alvarez MD / [facility] Interpreting Provider: Darwin Alvarez MD - Attending Attestation I saw and examined pt. I have discussed with Resident Dr Broderick regarding pt's management plan. I agree with the documentation. Pt has no cough. SOB improved. No confusion. Low H/H, will have one unit of PRBC today. Cont abx for pneumonia.
[2017-02-16] MEDS: *HR* HYDROcodone/Acet 7.5/325 mg TABLET PO PRN ×2 (11:28→20:04)
--- NOTE | 2017-02-16 12:28 | Electrocardiograph Report ---
[place] [id number] Test Date: 2017-02-14 Pat Name: Sam Padilla Department: 102 Room: [facility] Gender: M Director Of Video Analytics: Willam : 1940 Requested By: Asad Story Order Number: [id number] Reading MD: Matthew Winchester Measurements Intervals [place] Rate: 120 P: -27 CO: 160 QRS: -20 QRSD: 147 T: 139 QT: 332 QTc: 403 Interpretive Statements SINUS TACHYCARDIA LEFT BUNDLE BRANCH BLOCK Electronically Signed On 02-16-2017 12:27:19 EDT by Matthew Winchester
--- NOTE | 2017-02-16 12:39 | Electrocardiograph Report ---
[address] [place], [place] [address] Test Date: 2017-02-15 Pat Name: Sam Padilla Department: 111 Room: 2NE31 Gender: M Trick Rodeo Rider: [facility] : 1940 Requested By: Alen Armendariz Order Number: [id number] Reading MD: Matthew Winchester Measurements Intervals [place] Rate: 78 P: 47 AR: 203 QRS: -26 QRSD: 98 T: 123 QT: 408 QTc: 441 Interpretive Statements SINUS RHYTHM BORDERLINE LEFT AXIS DEVIATION ST DEVIATION AND MODERATE T-WAVE ABNORMALITY, CONSIDER LATERAL ISCHEMIA Electronically Signed On 02-16-2017 12:38:20 EDT by Matthew Winchester
[2017-02-16 13:06] LABS: Folate 17.7 ng/mL (7.0-31.4)
[2017-02-16] MEDS ORDERED: 0.9 % Sodium Chloride 250 ML ONE (14:56)
[2017-02-16] MEDS: *HR* Heparin 5,000 UNIT/ML VIAL SQ SCH (16:46)
[2017-02-17 03:18] LABS: Basophils % 0.3 %; Eosinophils # 0.4 K/mcL (0.0-0.6); Eosinophils % 5.4 %; Hematocrit 26.3 % (37.5-50.1); Hemoglobin 8.3 g/dL (12.9-16.9); Immature Granulocytes % 0.6 % (0-4); Lymphocytes # 0.4 K/mcL (0.6-4.6); Lymphocytes % 6.2 %; Mean Corpuscular HGB Conc 31.6 g/dL (31.6-35.5); Mean Corpuscular Hemoglobin 28.9 pg (28.0-33.3); Mean Corpuscular Volume 91.6 fL (83.0-100.0); Monocytes # 0.5 K/mcL (0.0-1.3); Monocytes % 7.6 %; Neutrophils # 5.7 K/mcL (1.6-8.9); Platelet Count 221 K/mcL (140-400); Red Blood Count 2.87 M/mcL (4.19-5.50); Red Cell Distribution Width 14.5 % (11.5-14.5); Segmented Neutrophils % 79.9 %
[2017-02-17] MEDS: *HR* HYDROcodone/Acet 7.5/325 mg TABLET PO PRN ×2 (03:54→20:55)
[2017-02-17] MEDS: *HR* Heparin 5,000 UNIT/ML VIAL SQ SCH ×2 (05:02→17:40)
[2017-02-17] MEDS: Piperacillin/Tazobactam 3.375 GM in D5% in Water (Mini-Bag+) 100 ML IVPB SCH (08:36)
[2017-02-17] MEDS: Aspirin 81 MG TAB.CHEW PO SCH (08:36)
[2017-02-17] MEDS: Lactobacillus 1 EACH CAP.SPRINK GTUBE SCH ×2 (08:36→20:44)
[2017-02-17] MEDS: Insulin LISPRO 300 UNITS/3 ML VIAL SQ SCH ×4 (08:46→20:48)
--- NOTE | 2017-02-17 09:07 | Discharge Summary ---
<Sandip Broderick - Last Filed: 02/17/17 08:55> Date of Encounter: 02/17/17 Time of Encounter: 08:55 - Discharge Diagnosis (1) Bacterial pneumonia Priority: Primary Status: Acute (2) Sepsis Priority: Primary Status: Acute Qualifiers: Qualified Code(s): A41.9 - Sepsis, unspecified organism (3) Chronic anemia Priority: Secondary Status: Acute (4) Elevated troponin Priority: Secondary Status: Acute (5) Severe aortic stenosis Priority: Secondary Status: Chronic (6) CAD (coronary artery disease) Priority: Secondary Status: Acute Qualifiers: Coronary Disease-Associated Artery/Lesion type: [place] artery [place] vs. transplanted heart: [place] heart Associated angina: without angina Qualified Code(s): I25.10 - Atherosclerotic heart disease of [place] coronary artery without angina pectoris (7) Nasopharyngeal cancer Priority: Secondary Status: Acute (8) Constipation Priority: Secondary Status: Acute Qualifiers: Qualified Code(s): K59.00 - Constipation, unspecified (9) Choledocholithiasis Priority: Secondary Status: Acute (10) DVT prophylaxis Priority: Secondary Status: Acute - Discharge Medications Prescriptions: Amoxicillin/Clavulanate [Augmentin] 875 mg PO BIDWM 5 Days Ferrous Sulfate 325 mg PO DAILY@0800 #30 tablet Home Medications: Finasteride [Proscar] 5 mg PO DAILY 06/06/15 [History] Pantoprazole Sodium [Protonix] 40 mg PO DAILY 02/21/16 [History] Cholecalciferol (D-3) [Vitamin D] 2,000 unit PO DAILY 05/30/16 [History] Docusate [Colace] 100 mg PO BID 05/30/16 [History] Ondansetron [Zofran] 4 mg PO Q8HR PRN #90 tablet 09/12/16 [Rx] Prochlorperazine Maleate [Compazine] 10 mg PO Q8HR PRN #90 tablet 09/12/16 [Rx] Promethazine [Phenergan] 25 mg PO Q8HR PRN #90 tablet 10/22/16 [Rx] Magic Mouthwash [Magic Mouthwash BLM] 10 ml PO QID PRN #240 ml 11/29/16 [Rx] HYDROcodone/Acet 7.5/325 mg [[place] 7.5-325 mg] 1 tab PO Q4H PRN #120 tablet [Rx] Gabapentin [Neurontin] 100 mg PO HS 02/04/17 [History] Lactose-Reduced Food/Fiber [Isosource 1.5 [place]cy Liquid] 250 ml GTUBE 6XD 02/04/17 [History] NIFEdipine XL (24 HR) [Procardia XL] 60 mg PO DAILY 02/04/17 [History] Polyethylene Glycol 3350 [MiraLAX Powder Bulk 17.9 Oz] 17 gm PO DAILY PRN [History] glipiZIDE [Glucotrol] 2.5 mg PO BIDWM 02/04/17 [History] Aspirin 81 mg PO DAILY 30 Days 02/07/17 [Rx] Clopidogrel [Plavix] 75 mg PO DAILY 30 Days 02/07/17 [Rx] Metoprolol [Lopressor] 25 mg PO BID 30 Days 02/07/17 [Rx] Nitroglycerin 0.4 mg SL Q5MIN PRN #0 tab.subl 02/07/17 [Rx] Atorvastatin [Lipitor] 40 mg PO HS 02/14/17 [History] Terazosin [Hytrin] 5 mg PO HS 02/14/17 [History] Amoxicillin/Clavulanate [Augmentin] 875 mg PO BIDWM 5 Days 02/17/17 [Rx] Ferrous Sulfate 325 mg PO DAILY@0800 #30 tablet 02/17/17 [Rx] Allergies/Adverse Reactions: Allergies No Known Allergies Allergy (Verified 11/08/16 19:45) Procedures/tests Complete & Pending: Procedures Performed prior 72 hours Category Date Time Status CT abd pelvis wo no iv no oral [CT] Routine Cat Scan 02/15/17 11:[address] chest w/o contrast [CT chest wo con] [CT] Routine Cat Scan 02/15/17 11:42 Completed US abdomen limited [US] Stat Exams 02/17/17 07:13 Stop Req EKG [ECG 12 lead ECG] [ECG] Stat Y 02/15/17 04:11 Completed Date of admission: 02/14/17 18:25 [facility] physician: [facility] Consults: 02/15/17 09:39 Consult to Nutrition [CONS] Routine Comment: Consulting Provider: NUTRITION Reason for Dietary Consult: Other Other:: PEG feed Discharging clinician: Sandip Broderick Anticipated date of discharge: 02/17/17 - Patient Status Disposition: Home, Self-Care Condition: Fair Functional capacity at discharge: uses cane/walker (Fall precaution) Overall status at discharge: patient is progressing back to baseline - Discharge Instructions Instructions: Iron Supplements (By mouth), Amoxicillin/Clavulanate Potassium ( By mouth), Heart Failure (DC), Chest Pain (DC), Urinary Tract Infection in Men ( DC), Chronic Kidney Disease (DC), Chronic Kidney Disease (GEN), Diabetes Mellitus Type 2 in Adults (DC), Chronic Hypertension (DC), Anemia (GEN), Pneumonia (DC) Follow Up With: [facility] [Primary Care Provider] - (Follow-up within a week for hospital discharge follow-up, hypertension and patient already has a follow-up appointment with [facility] for his severe aortic stenosis.) - Diet and Activity Activity: resume usual activities as tolerated Diet: other (PEG tube feeding and pureed diet in addition to ensure plus twice a day) Hospital course: Mr. Padilla is a 76 year old male with a history of severe aortic stenosis, coronary artery disease, nasopharyngeal cancer, diabetes type 2 and chronic anemia who was brought to the ER due to slight confusion with nausea and vomiting and some fatigue, patient was recently discharged from this hospital about 10 days ago with NSTEMI and had left heart catheter with a stent placement. Chest x-ray in the ER showed bibasilar pneumonia, due to recent hospitalization patient was started on vancomycin and Zosyn IV, patient also met sepsis criteria, cardiology was consulted for elevated troponin and possible NSTEMI, therefore patient was started on IV heparin drip. Patient had an elevated troponin however it became adynamic, cardiology thought it is due to demand ischemia in the setting of sepsis, unlikely NSTEMI therefore IV heparin drip was discontinued in 48 hours. Blood culture came back negative therefore vancomycin IV was stopped after 48 hours, sepsis resolved after he was started on IV antibiotics. During this hospitalization patient hemoglobin dropped to 7.3, likely delusional from normal saline IV fluid, patient has chronic anemia with low iron level noted from recent lab, therefore patient received 1 unit of PRBC transfusion, on the date of discharge patient's hemoglobin appropriately improved to 8.3. Patient had CT scan of the chest and abdomen and it showed possible underlying pneumonia and the CT scan of the abdomen showed no acute process however the possibility of choledocholithiasis, patient had a ERCP done 2 years ago in which ERCP failed to remove same CBD stone that time, and during this hospitalization patient did not have abdominal pain or abnormal liver function tests. Therefore patient will be discharged to home today in stable condition with by mouth antibiotics to treat his underlying bacterial pneumonia, patient has follow-up appointment with [facility] for severe aortic stenosis, and patient will closely follow up with his PCP for hospital discharge follow-up. - Time Spent with Patient Total time spent providing and/or coordinating discharge services: - Constitutional Vitals: Temp Pulse Resp BP Pulse Ox 98.4 F 66 15 151/80 95 02/17/17 07:17 02/17/17 07:17 02/17/17 07:17 02/17/17 07:17 02/17/17 07:17 General appearance: Present: cooperative, A&O X 3, pleasant, no acute distress, answers questions appropriately - Head Head exam: Present: atraumatic, normocephalic - Eye Eye exam: Present: PERRL, conjuntiva pink, sclera anicteric Pupils: Present: PERRL - Neck Neck exam general surgery: Present: supple, trachea midline. Absent: lymphadenopathy - Respiratory Respiratory exam: Present: CTAB. Absent: accessory muscle use, rales, rhonchi, wheezes - Cardiovascular Cardiovascular exam: Present: RRR, +S1, +S2. Absent: diastolic murmur, gallop, rubs, systolic murmur - GI/Abdominal GI/Abdominal exam: Present: normal bowel sounds, soft, no peritoneal signs. Absent: distended, tenderness Additional comments: PEG tube in place - Extremities Exam Extremities exam: Present: warm, radial pulses palpable and symetrical. Absent : calf tenderness, cyanotic, pedal edema - Neurological Exam Neurological exam: Present: CN II-XII intact, oriented X3, no focal deficits. Absent: pronater drift, facial droop, speech deficit - Skin Skin exam: Present: dry, intact <Noam Osorio - Last Filed: 02/17/17 14:48> Date of Encounter: 02/17/17 Procedures/tests Complete & Pending: Procedures Performed prior 72 hours Category Date Time Status CT abd pelvis wo no iv no oral [CT] Routine Cat Scan 02/15/17 11:[address] chest w/o contrast [CT chest wo con] [CT] Routine Cat Scan 02/15/17 11:42 Completed US abdomen limited [US] Stat Exams 02/17/17 07:13 Stop Req EKG [ECG 12 lead ECG] [ECG] Stat Y 02/15/17 04:11 Completed Date of admission: 02/14/17 18:25 Primary care physician: [facility] Consults: 02/15/17 09:39 Consult to Nutrition [CONS] Routine Comment: Consulting Provider: NUTRITION Reason for Dietary Consult: Other Other:: PEG feed Hospital course: Mr. Padilla is a 76 year old male - Time Spent with Patient Total time spent providing and/or coordinating discharge services: - Constitutional Vitals: Temp Pulse Resp BP Pulse Ox 98.4 F 66 15 151/80 95 02/17/17 07:17 02/17/17 07:17 02/17/17 07:17 02/17/17 07:17 02/17/17 07:17 - Attending Attestation I saw and examined pt. I have discussed with Resident Dr Broderick regarding pt's management plan. I agree with the documentation. Discharge is on hold b/o nausea, see event note.
--- NOTE | 2017-02-17 11:36 | Event Note ---
Date of Encounter: 02/17/17 Time of Encounter: 11:30 Pt c/o nausea. On exam abd is benign, possibly due to side effect of med. Will change IV Abx to po. Zofran 4mg iv PRN. Will hold discharge and observe pt in hospital for one more day.
[2017-02-17] MEDS: Ondansetron 4 MG/2 ML VIAL IVP PRN ×2 (11:55→20:54)
[2017-02-18 05:41] LABS: Basophils % 0.5 %; Eosinophils # 0.3 K/mcL (0.0-0.6); Hematocrit 28.2 % (37.5-50.1); Hemoglobin 9.2 g/dL (12.9-16.9); Immature Granulocytes % 1.1 % (0-4); Lymphocytes # 0.5 K/mcL (0.6-4.6); Lymphocytes % 8.9 %; Mean Corpuscular HGB Conc 32.6 g/dL (31.6-35.5); Mean Corpuscular Hemoglobin 29.8 pg (28.0-33.3); Mean Corpuscular Volume 91.3 fL (83.0-100.0); Monocytes # 0.6 K/mcL (0.0-1.3); Monocytes % 10.2 %; Neutrophils # 4.2 K/mcL (1.6-8.9); Platelet Count 220 K/mcL (140-400); Red Blood Count 3.09 M/mcL (4.19-5.50); Red Cell Distribution Width 14.4 % (11.5-14.5); Segmented Neutrophils % 74.3 %
[2017-02-18] MEDS: *HR* HYDROcodone/Acet 7.5/325 mg TABLET PO PRN (05:43)
[2017-02-18] MEDS: *HR* Heparin 5,000 UNIT/ML VIAL SQ SCH (05:43)
[2017-02-18 05:57] LABS: BUN/Creatinine Ratio 17 (6-26); Calcium 9.5 mg/dL (8.6-10.8); Carbon Dioxide 26 mEq/L (19-29); Chloride 105 mEq/L (98-109); Glucose 186 mg/dL (70-99); Osmolality,Calculated 291 (280-300); Potassium 4.1 mEq/L (3.5-4.5); Sodium 137 mEq/L (136-145); eGFR For African Americans > 60 (> 60); eGFR For Non-African Americans > 60 (> 60)
[2017-02-18 05:58] LABS: Blood Urea Nitrogen 20 mg/dL (8-26)
[2017-02-18 07:26] VITALS: BP 145/72
[2017-02-18] MEDS: Aspirin 81 MG TAB.CHEW PO SCH (07:58)
[2017-02-18] MEDS: Lactobacillus 1 EACH CAP.SPRINK GTUBE SCH (07:58)
[2017-02-18] MEDS: Insulin LISPRO 300 UNITS/3 ML VIAL SQ SCH ×2 (07:59→12:24)
--- NOTE | 2017-02-18 09:33 | Event Note ---
<Sandip Broderick - Last Filed: 02/18/17 09:31> Date of Encounter: 02/18/17 Time of Encounter: 09:31 Patient seen and examined. Yesterday he was discharged however the discharge was held due to patient was having symptoms of nausea/vomiting, patient had occasional loose stool last night and this morning, no abdominal pain. Patient states that his nausea improved this morning no emesis, occasional loose stool this morning likely related to PEG tube feeding and MiraLAX when necessary, for possible underlying BPH, will start him on Flomax and its prescription has been sent to his [facility] pharmacy. Patient will be discharged home today in stable condition. <Noam Osorio - Last Filed: 02/18/17 14:12> Date of Encounter: 02/18/17 I saw and examined pt. I have discussed with Resident Dr Broderick regarding pt's management plan. I agree with the documentation. Pt said he feels nausea after taking iron pills. Told pt hold iron pill at this point, eat balanced diet, follow up with PCP for anemia and iron level.
[2017-02-18] MEDS: Ondansetron 4 MG/2 ML VIAL IVP PRN (12:28)
== END 2017-02-18 14:03 | disposition home or self-care (01) | DRG 871 ==
LOC: EMEROO 15:11 → 2NENU 18:25
PROVIDERS: ADMIT Internal Medicine; ATTEND Internal Medicine